=== PATIENT | female | born 1995 | race Caucasian/White ===

== ENCOUNTER → 2019-06-30 | Outpatient (CLI) | payer MEDICAID, BC ==
--- NOTE | 2019-06-30 14:42 | Diagnostic Imaging Report ---
PROCEDURE: MR imaging of the brain without contrast. TECHNIQUE: Multiplanar, multisequence MR imaging of the brain was performed without contrast. INDICATION: Headache. FINDINGS: The ventricles and sulci are within normal limits. There is no hydrocephalus. There is no midline shift. There is no mass, hemorrhage or extra-axial fluid collection. There are no areas of diffusion restriction appreciated to suggest an acute CVA. There is mucosal thickening in the maxillary sinuses bilaterally. Mastoid air cells are clear. The globes and intraorbital structures are unremarkable. The central arterial and dural venous sinus flow voids are preserved. IMPRESSION: No acute intracranial abnormality. Bilateral maxillary sinus disease. Dictated by: Dictated on workstation # [id number]
== END ==
LOC: RAD 13:33
PROVIDERS: ATTEND Nurse Practitioner Family
DX: J32.0 Chronic maxillary sinusitis (principal)
CPT/HCPCS: 70551

== ENCOUNTER → 2019-11-29 | Outpatient (CLI) | payer BC, MEDICAID ==
[~2019-11-29] MED LIST: BUPR-168 PO
--- NOTE | 2019-11-29 11:35 | Diagnostic Imaging Report ---
PROCEDURE: CT abdomen and pelvis without contrast. TECHNIQUE: Multiple contiguous axial images were obtained through the abdomen and pelvis without the use of intravenous contrast. Auto Exposure Controls were utilized during the CT exam to meet ALARA standards for radiation dose reduction. INDICATION: Abdominal pain. Nausea and vomiting. COMPARISON: None. FINDINGS: The heart is unremarkable. The included lung bases are clear. The left kidney has an atrophic appearance with internal calcifications. This measures approximately 4.7 cm craniocaudal. There is compensatory hypertrophy of the right kidney which measures 10.6 cm in length. No evidence of hydronephrosis or obstructing renal calculi. The urinary bladder is unremarkable. The liver, spleen, pancreas, and adrenal glands have an unremarkable noncontrast CT appearance. The gallbladder is surgically absent. There is no pathologically enlarged mesenteric or retroperitoneal adenopathy. The bowel loops are nondilated. The appendix is visualized in the right lower quadrant and has an unremarkable appearance. There is no free fluid or free air. The osseous structures are age-appropriate. Bilateral dominant follicles/cysts are seen in the ovaries. There is no free air, loculated collection, or adenopathy in the pelvis. IMPRESSION: 1. No acute inflammation, bowel obstruction, or free fluid is seen in the abdomen and pelvis. Normal appendix. 2. Atrophic appearance of the left kidney, which may be congenital. There is compensatory hypertrophy of the right kidney. No acute abnormalities are seen in the right kidney. 3. Bilateral dominant follicles/cysts in the ovaries. Dictated by: Dictated on workstation # [id number]
== END ==
LOC: RAD FS 10:33
PROVIDERS: ATTEND Nurse Practitioner
DX: R19.7 Diarrhea, unspecified (principal); R10.84 Generalized abdominal pain; R11.2 Nausea with vomiting, unspecified
CPT/HCPCS: 74176

== ENCOUNTER 2019-12-01 09:07 | Outpatient (CLI) | payer MEDICAID ==
[~2019-12-01] VITALS: Ht 167 cm; Wt 81.0 kg
[2019-12-01] MEDS ORDERED: BUPR-168 PO (10:12)
== END 2019-12-01 10:15 ==
LOC: PREOP 09:07
PROVIDERS: ATTEND Surgery
DX: Z01.818 Encounter for other preprocedural examination (principal)

== ENCOUNTER 2019-12-06 07:48 | Day surgery (SDC) | payer MEDICAID ==
[~2019-12-06] VITALS: Ht 167 cm; Wt 81.0 kg
[2019-12-06] MEDS ORDERED: LACTATED RINGERS 1,000 ML IV STA (07:59)
[2019-12-06] MEDS ORDERED: LACTATED RINGERS 1,000 ML IV ONE (07:59)
[2019-12-06 08:00] VITALS: BP 113/69
[2019-12-06] MEDS ORDERED: HURRICAINE EXT TUBE (BENZOCAINE) XX PRN (08:00)
--- OUTSIDE RECORDS SUMMARY | 2019-12-06 08:12 | XMS REPORT | Clinical Summary ---
Author Author Admin, Carmella Casarez Organization [facility] Address Unknown Phone Unavailable Allergies, Adverse Reactions, Alerts Allergy Name Reaction Description Start Date Severity Status Pr ovider PENICILLIN rash Critical Active Erica Casarez PhD Conditions or Problems Problem Name Problem Code Onset Date Status Entry Date Provider Comment Standard Description Annotate V22.2 Resolved Erica Gutierrez MD PhD state, incidental DEPRESSION 311 Active Erica Gutierrez MD PhD Depressive disorder, not elsewhere classified FH DIABETES V18.0 Active Erica Gutierrez MD PhD Family history of diabetes mellitus SMALL FOR GESTATIONAL AGE 764.00 Resolved Erica Gutierrez MD PhD 'Batqk-kdz-oslid' without me ntion of malnutrition, unspecified [weight] EXAMINATION V24.2 Resolved Erica Gutierrez MD PhD Routine follow-up SUPRAPUBIC PAIN 789.09 Resolved Erica Gutierrez MD P hD Abdominal pain, other specified site; multiple sites CONTRACEPTION MANAGEMENT V25.09 Resolved Erica Gutierrez MD PhD Encounter for other general counseling and advice on contraceptive management OTHER SPECIFED COMPLICATION ANTEPARTUM 646.83 Resolved Erica Gutierrez MD PhD Other specified complication s of , antepartum condition or complication , NORMAL V22.2 Resolved Erica Gutierrez MD PhD state, incidental VAGINAL BLEEDING, FIRST TRIMESTER 641.90 Resolved 20 07/25/31 Erica Gutierrez MD PhD Unspecified antepartum hemor rhage, unspecified as to episode of care or not applicable UTERINE SIZE DATE DISCREPANCY ANTPRTM COND/COMPL 649.63 04/23 Resolved Erica Gutierrez MD PhD Uterine size date di screpancy, antepartum condition or complication UTI 599.0 Resolved Erica Gutierrez MD PhD Urinary tract infection, site not specified VAGINITIS 616.10 Resolved Erica Gutierrez MD PhD Vaginitis and vulvovaginitis, unspecified URTICARIA 708.9 Resolved Erica Gutierrez MD PhD Unspecified urticaria SEXUALLY TRANSMITTED DISEASE, EXPOSURE TO V01.6 Resol francy Erica Gutierrez MD PhD Contact with or exposure to venereal dis eases CONTRACEPTION MANAGEMENT V25.09 Active Erica Gutierrez MD PhD Encounter for other general counseling and advice on contraceptive management CANDIDIASIS, VAGINAL 112.1 Resolved Erica Gutierrez MD PhD Candidiasis of vulva and vagina Pharyngitis, acute 074.0 Resolved Erica Casarez PhD Herpangina Otitis media, left 382.9 Resolved Erica Casarez PhD Unspecified otitis media Abdominal pain 789.00 Active Erica Gutierrez MD PhD Abdominal pain, unspecified site UTI 599.0 Active Erica Gutierrez MD PhD Urinary tract infection, site not specified Helicobacter pylori gastritis 535.40 Active 01/28 Erica Gutierrez MD PhD Other specified gastritis, without menti on of hemorrhage WELL WOMAN EXAMINATION V72.31 Active Marimar valdez MD Routine gynecological examination Dysmenorrhea 625.3 Active Marimar Newsome MD Dysmenorrhea ICD-V22.2 Inactive Erica Gutierrez MD Ph D SMALL FOR GESTATIONAL AGE ICD-764.00 Inactive Erica Gutierrez MD PhD EXAMINATION ICD-V24.2 Inactive Sterling Gutierrez MD PhD SUPRAPUBIC PAIN ICD-789.09 Inactive Erica still MD PhD CONTRACEPTION MANAGEMENT ICD-V25.09 Inactive Erica Gutierrez MD PhD OTHER SPECIFED COMPLICATION ANTEPARTUM ICD-646.83 20 07/24/03 Inactive Erica Gutierrez MD PhD , NORMAL ICD-V22.2 Inactive Erica donnelly MD PhD VAGINAL BLEEDING, FIRST TRIMESTER ICD-641.90 In active Erica Gutierrez MD PhD UTERINE SIZE DATE DISCREPANCY ANTPRTM COND/COMPL ICD-649.63 Inactive Erica Gutierrez MD PhD UTI ICD-599.0 Inactive Erica Gutierrez MD PhD 201 09/27/23 VAGINITIS ICD-616.10 Marques Gutierrez MD P hD URTICARIA ICD-708.9 Marques Gutierrez MD Ph D SEXUALLY TRANSMITTED DISEASE, EXPOSURE TO ICD-V01.6 Marques Gutierrez MD PhD CANDIDIASIS, VAGINAL ICD-112.1 Marques Gutierrez MD PhD Pharyngitis, acute ICD-074.0 Marques del angel MD PhD Otitis media, left ICD-382.9 Marques del angel MD PhD Medication List Medication Instructions Start Date Stop Date Generic Name NDC Status Provider Patient Instruction BACTRIM DS 800-160 MG TABS 1 pill by mouth twice daily, for UTI SULFAMETHOXAZOLE-TRIMETHOPRIM [id number] No Longer Active A uyen Gutierrez MD PhD Active PREVPAC MISC take as directed, twice daily CGURDUILE-SKATGWNYT-VWFHCCROG 85508440186 Active Erica Gutierrez MD PhD Active NEXPLANON 68 MG IMPL every 3 years ETONOGESTREL 90170539 001 Active Marimar Newsome MD Active FLAGYL 500 MG TAB 1 tablet by mouth two times daily 29/01/27 METRONIDAZOLE 64922088790 No Longer Active Erica Gutierrez MD PhD Act sirisha CLARITHROMYCIN 500 MG TABS 1 tablet by mouth twice daily CLARITHROMYCIN 19046774871 No Longer Active Erica Gutierrez MD PhD Ac tive PROTONIX 40 MG SOLR 1 po q a.m. PANTOPRAZOLE SO DIUM 00993749961 No Longer Active Erica Gutierrez MD PhD Active BACTRIM DS 800-160 MG TAB 1 tab by mouth twice daily 2 TRIMETHOPRIM-SULFAMETHOXAZOLE 83685172981 No Longer Active Erica Gutierrez MD P hD Active ZITHROMAX 250 MG TAB 2 po today, then 1 po q days 2-5 AZITHROMYCIN 29425894728 No Longer Active Gabrielle Dill APRN Acti ve NEXPLANON 68 MG IMPL replace every 3 years ETON OGESTREL 15739051767 No Longer Active Gabrielle Dill APRN Active HYDROCODONE-ACETAMINOPHEN 5-325 MG TABS 1 q 4-6 hrs prn HYDROCODONE-ACETAMINOPHEN 91271032343 No Longer Active Gabrielle Dill APRN Active DIFLUCAN 150 MG TAB 1 qODay x 2 doses FLUCONAZO LE 92572196356 No Longer Active Erica Gutierrez MD PhD Active LORATADINE 10 MG TABS 1 tablet by mouth daily in the AM LORATADINE 60622955991 No Longer Active Erica Gutierrez MD PhD Acti ve BENADRYL 25 MG CAP 25-50 mg po q 4-6 hours PRN DIPHENHYDRAMINE HCL 50920520071 No Longer Active Erica Gutierrez MD PhD Active 1 30-0.975-200 MG CAPS 1 qDay 3 MV-MIN-FE FUM-FA-DHA 72400285935 No Longer Active Jair Paez BRICK OFFBEARER Act sirisha ZANTAC 150 MG TAB 1 po BID RANITIDINE HCL 29723 704914 No Longer Active Erica Gutierrez MD PhD Active ZOFRAN ODT 4 MG TBDP 1 po q6hr PRN Nausea ONDAN SETRON 13277466142 No Longer Active Erica Gutierrez MD PhD Active METRONIDAZOLE 250 MG TABS 1 TID METRONIDAZOL E 00232785172 No Longer Active Erica Gutierrez MD PhD Active NITROFURANTOIN MONOHYD MACRO 100 MG CAPS 1 .bid NITROFURANTOIN MONOHYD MACRO 75460672940 No Longer Active Erica Gutierrez MD PhD Active TRI-SPRINTEC 0.18/0.215/0.25 MG-35 MCG TABS 1 po qd as directed NORGESTIM-ETH ESTRAD TRIPHASIC 22328535782 No Longer Active Erica Gutierrez MD PhD Active BACTRIM DS 800-160 MG TAB 1 tab by mouth twice daily 2 TRIMETHOPRIM-SULFAMETHOXAZOLE 00892737473 No Longer Active Erica Gutierrez MD P hD Active PX MULTIVITAMINS 28-0.8 MG TABS Take 1 tablet by mouth daily VIT-FE FUMARATE-FA 69089596058 No Longer Active Ercia Gutierrez MD PhD Active PX MULTIVITAMINS 28-0.8 MG TABS Take 1 tablet by mouth daily PX MULTIVITAMINS 28-0.8 MG TABS VIT-FE FUMARATE-FA Inactive TRI-SPRINTEC 0.18/0.215/0.25 MG-35 MCG TABS 1 po qd as directed TRI-SPRINTEC 0.18/0.215/0.25 MG-35 MCG TABS 489954 NORGESTIM-ETH ESTRAD TRIPHASIC Inactive METRONIDAZOLE 250 MG TABS 1 TID METRONIDAZ OLE 250 MG TABS 112369 METRONIDAZOLE Inactive ZOFRAN ODT 4 MG TBDP 1 po q6hr PRN Nausea ZOFRAN ODT 4 MG TBDP 851771 ONDANSETRON Inactive 1 30-0.975-200 MG CAPS 1 qDay 3 1 30-0.975-200 MG CAPS MV-MIN-FE FUM-FA-DHA Inactive BENADRYL 25 MG CAP 25-50 mg po q 4-6 hours PRN BENADRYL 25 MG CAP 0066412 DIPHENHYDRAMINE HCL Inactive LORATADINE 10 MG TABS 1 tablet by mouth daily in the AM LORATADINE 10 MG TABS 182177 LORATADINE Inactive HYDROCODONE-ACETAMINOPHEN 5-325 MG TABS 1 q 4-6 hrs prn HYDROCODONE-ACETAMINOPHEN 5-325 MG TABS 889385 HYDROCODONE-ACETAMIN OPHEN Inactive NEXPLANON 68 MG IMPL replace every 3 years NEXPLA NON 68 MG IMPL ETONOGESTREL Inactive BACTRIM DS 800-160 MG TAB 1 tab by mouth twice daily 2 BACTRIM DS 800-160 MG TAB TRIMETHOPRIM-SULFAMETHOXAZOLE Inac tive NITROFURANTOIN MONOHYD MACRO 100 MG CAPS 1 .bid NITROFURANTOIN MONOHYD MACRO 100 MG CAPS 385800 NITROFURANTOIN MONO HYD MACRO Inactive ZANTAC 150 MG TAB 1 po BID ZANTAC 150 MG TAB 19 8191 RANITIDINE HCL Inactive DIFLUCAN 150 MG TAB 1 qODay x 2 doses DIFLUCAN 150 MG TAB 830577 FLUCONAZOLE Inactive ZITHROMAX 250 MG TAB 2 po today, then 1 po q days 2-5 ZITHROMAX 250 MG TAB 6843666 AZITHROMYCIN Inactive BACTRIM DS 800-160 MG TAB 1 tab by mouth twice daily 2 BACTRIM DS 800-160 MG TAB TRIMETHOPRIM-SULFAMETHOXAZOLE Inac tive PROTONIX 40 MG SOLR 1 po q a.m. PROTONIX 40 MG SOLR 642961 PANTOPRAZOLE SODIUM Inactive CLARITHROMYCIN 500 MG TABS 1 tablet by mouth twice daily CLARITHROMYCIN 500 MG TABS 402610 CLARITHROMYCIN Inactive FLAGYL 500 MG TAB 1 tablet by mouth two times daily 29/01/27 FLAGYL 500 MG TAB 112145 METRONIDAZOLE Inactive BACTRIM DS 800-160 MG TABS 1 pill by mouth twice daily, for UTI BACTRIM DS 800-160 MG TABS SULFAMETHOXAZOLE-TRIM ETHOPRIM Inactive Immunizations Vaccine Administration Date Value Standard Pritesh cription TB PPD (tuberculin purified protein derivative), intra dermal administration Tubersol TB PPD (tuberculin purified protein derivative), intra dermal administration Tubersol hepatitis B vaccine series yes hepat itis B vaccine, unspecified formulation influenza immunization (Flu Vax) has been administered 3 Fluzone 3+yrs influenza virus vaccine, unspecified formulation dT (Diphtheria and Tetanus) booster Boostrix Tda p Td(adult) unspecified formulation MPSV4 (meningococcal polysaccharide vaccination) Menactra meningococcal polysaccharide vaccine (MPSV4) DPT immunization #5 DTaP oral polio vaccine (OPV) #4 IPV vitaliy ovirus vaccine, unspecified formulation MMR virus immunization #2 MMR DPT immunization #4 DTaP Hemophilus influenza B immunization #4 Historica l Haemophilus influenzae type b vaccine, conjugate unspecified formulation hepatitis B vaccine #3 Historical hepatitis B vaccine, unspecified formulation hepatitis B vaccine #2 Historical hepatitis B vaccine, unspecified formulation DPT immunization #3 DTaP Hemophilus influenza B immunization #3 Historica l Haemophilus influenzae type b vaccine, conjugate unspecified formulation oral polio vaccine (OPV) #3 IPV vitaliy ovirus vaccine, unspecified formulation MMR virus immunization #1 MMR hepatitis B vaccine #1 Historical hepatitis B vaccine, unspecified formulation DPT immunization #2 DTaP Hemophilus influenza B immunization #2 Historica l Haemophilus influenzae type b vaccine, conjugate unspecified formulation oral polio vaccine (OPV) #2 IPV vitaliy ovirus vaccine, unspecified formulation oral polio vaccine (OPV) #1 IPV vitaliy ovirus vaccine, unspecified formulation DPT immunization #1 DTaP Hemophilus influenza B immunization #1 Historica l Haemophilus influenzae type b vaccine, conjugate unspecified formulation Vital Signs Date Name Value Unit Range Description blood pressure, diastolic 79 mm[Hg] BP martin blood pressure, systolic 120 mm[Hg] BP sys height E&M 65 [in_us] Bdy height pulse rate E&M 80 /min Heart rate temperature E&M 98.1 [degF] Body temp erature weight E&M 172 [lb_av] Weight Measure d blood pressure, diastolic 69 mm[Hg] BP martin blood pressure, systolic 121 mm[Hg] BP sys pulse rate E&M 94 /min Heart rate temperature E&M 98.8 [degF] Body temp erature weight E&M 174 [lb_av] Weight Measure d blood pressure, diastolic 83 mm[Hg] BP martin blood pressure, systolic 127 mm[Hg] BP sys height E&M 65 [in_us] Bdy height pulse rate E&M 91 /min Heart rate temperature E&M 98.8 [degF] Body temp erature weight E&M 166.50 [lb_av] Weight Measure d blood pressure, diastolic 76 mm[Hg] BP martin blood pressure, systolic 124 mm[Hg] BP sys height E&M 65 [in_us] Bdy height pulse rate E&M 67 /min Heart rate temperature E&M 97.7 [degF] Body temp erature weight E&M 175 [lb_av] Weight Measure d Diagnostic Results Date Name Value Unit Range Description Lab Report: Chlamydia/GC APTIMA/[id number] - Lab chlamydia DNA probe NOT DETECTED NOT DETECTED Lab Report: Chlamydia/GC APTIMA/[id number] - Microbiology Neisseria gonorrhoeae DNA probe NOT DETECTED NO T DETECTED Lab Report: H. Pylori, Comp. Metabolic P jared, CBC W/DIFF - Chemistry sodium, serum 139 mmol/L 387-765 1941/06/11 potassium, serum 4.2 mmol/L 3.5-5.2 chloride, serum 103 mmol/L 98-107 carbon dioxide, venous blood 25.8 mmol/L 21.0-32 .0 blood glucose 103 mg/dL 65-110 urea nitrogen, blood 16 mg/dL 7-18 creatinine, serum 0.90 mg/dL 0.60-1.30 alanine aminotransferase (SGPT), serum 52 U/L 12-78 aspartate aminotransferase (SGOT), serum 31 U/L 15-37 alkaline phosphatase, serum 132 U/L 50-136 calcium, serum 9.3 mg/dL 8.5-10.1 bilirubin, serum, total 0.30 mg/dL 0.00-1.00 Lab Report: H. Pylori, Comp. Metabolic P jared, CBC W/DIFF - Hematology leukocyte count, blood 9.0 10^3/MM^3 10*3/mm3 4.6-10.2 neutrophils as percent of blood leukocytes 49.7 % 42.2-75.2 monocytes as percent of blood leukocytes 9.5 % 1.7-9.3 lymphocytes as percent of blood leukocytes 36.3 % 20.5-51.1 erythrocyte (RBC) count 4.71 10^6/MM^3 10*6/mm3 4.04-5.4 8 hemoglobin, blood 14.9 g/dL 12.0-16.0 hematocrit, blood 43.3 % 36.0-46.0 mean corpuscular volume, RBC 92 fL 80-97 mean corpuscular hemoglobin, RBC 31.5 pg 27. 0-31.2 mean corpuscular hemoglobin concentration, RBC 34.3 G/DL % 31.8-35.4 red blood cell distribution width 13.7 % 11 .6-14.8 platelet count 314 10^3/MM^3 10*3/mm3 142-424 Lab Report: UADIP W/MICRO, AUTO - Chemis try RBC, urine, dipstick Trace Negative protein, total urine random Trace mg/dL Negative protein, total urine random Negative mg/dL Negative RBC, urine, dipstick Negative Negative Lab Report: UADIP W/MICRO, AUTO - Urinal ysis urobilinogen, urine, semiquantitative (dipstick) 0.2 Normal leukocyte esterase, urine, by dipstick Trace Negative nitrite, urine, semiquantitative Negative Neg ative glucose, urine, semiquantitative Negative Neg ative ketones, urine, by test strip Negative Negati ve bilirubin, urine Negative Negative glucose, urine, semiquantitative Negative Neg ative ketones, urine, by test strip Negative Negati ve bilirubin, urine Negative Negative urine color Yellow Colorless;Lightyellow;St raw;Yellow appearance, urine Cloudy Clear specific gravity, urine 1.025 1.000-1.030 pH, urine, semiquantitative 6.0 5.0-8.5 urobilinogen, urine, semiquantitative (dipstick) 0.2 Normal leukocyte esterase, urine, by dipstick 2+ Negative nitrite, urine, semiquantitative Negative Neg ative urine color Yellow Colorless;Lightyellow;St raw;Yellow appearance, urine Clear Clear specific gravity, urine 1.020 1.000-1.030 pH, urine, semiquantitative 7.0 5.0-8.5 Encounters Code Encounter Date Provider Facility CPT-13127 Level 3 Est. Patient 17:34:39 CDT Erica del angel MD PhD [facility] CPT-66353 Level 3 Est. Patient 15:37:34 [facility] Gabrielle Allenart [facility] CPT-42979 Level 3 Est. Patient 11:00:48 CDT Erica del angel MD PhD [facility] CPT-02750 Level 3 Est. Patient 14:15:09 [facility] Jair boudreaux [facility] CPT-69139 Level 4 Est. Patient 14:28:18 CDT Erica del angel MD PhD [facility] Procedures Code Procedure Name Date Entry Date Standard Desc ription CPT-OV Office Visit 15:00:46 CDT CPT-OV Office Visit 16:12:37 [facility] CPT-80874 Nexplanon Placement 06:24:16 CDT CPT-J7307 Nexplanon (Implant) 06:24:16 CDT CPT-OV Office Visit 06:24:16 CDT CPT-94529 UHCG (floor use only) 12:59:32 CDT CPT-OV Office Visit 10:46:11 CDT CPT-34343 Visit 14:16:15 [facility] CPT-02119 Visit 13:53:01 [facility] CPT-13542 Visit 18:31:27 [facility] CPT-15265 Sono OB comp > 14 weeks 17:35:57 [facility] 06/24 CPT-79850 Tubersol 13:49:34 [facility] CPT-32941 Administration single or combination vac cine inc oral 13:49:34 [employer] CPT-60836 TB Tubersol 13:49:34 [employer] CPT-18186 Visit 11:06:01 [facility] CPT-02756 Visit 11:47:38 CDT CPT-12650 TB Tubersol 10:44:14 CDT CPT-49290 Visit 15:16:49 CDT CPT-76255 Visit 16:33:29 CDT CPT-60740 Sono OB comp > 14 weeks 11:45:03 CDT 04/23 CPT-40445 Visit 10:03:29 CDT CPT-82817 Visit 10:35:45 CDT CPT-12206 Visit 11:10:45 CDT CPT-65034 Spec Collection and Handling Fee 14:28:18 C DT CPT-41156 Sono OB transvag <14 weeks 14:51:23 CDT 201 09/23/14 CPT-62383 Spec Collection and Handling Fee 11:21:[address] CPT-75916 Visit 11:49:17 [employer] [employer] CPT-36462 Visit 10:55:44 [employer] [employer] CPT-83047 Visit 10:28:35 [employer] [employer] CPT-66708 Visit 09:50:13 [employer] [employer] CPT-25108 Visit 22:07:15 CDT CPT-06428 Visit 09:05:22 CDT CPT-08668 Sono OB comp > 14 weeks 17:37:04 CDT 05/22 CPT-47829 Visit 10:00:01 CDT
--- OUTSIDE RECORDS SUMMARY | 2019-12-06 08:13 | XMS REPORT | Clinical Summary ---
Author Author Admin, Carmella Casarez Organization [facility] Address Unknown Phone Allergies, Adverse Reactions, Alerts Allergy Name Reaction [...] [age] Resolved Erica Gutierrez MD PhD '[id number]-ekycs' without me ntion of malnutrition, unspecified [weight] [...] PhD Urinary tract infection, site not specified ICD-V22.2 Inactive Erica Gutierrez MD Ph D SMALL FOR GESTATIONAL AGE ICD-764.00 Inactive Erica Gutierrez MD PhD EXAMINATION ICD-V24.2 Inactive Sterling Gutierrez MD PhD SUPRAPUBIC PAIN ICD-789.09 Inactive Erica still MD PhD CONTRACEPTION MANAGEMENT ICD-V25.09 Inactive rEica Gutierrez MD PhD OTHER SPECIFED COMPLICATION ANTEPARTUM ICD-646.83 20 07/24/03 Inactive Erica Gutierrez MD PhD , NORMAL ICD-V22.2 Inactive Erica donnelly MD PhD VAGINAL BLEEDING, FIRST TRIMESTER ICD-641.90 In active Erica Gutierrez MD PhD UTERINE SIZE DATE DISCREPANCY ANTPRTM COND/COMPL ICD-649.63 Inactive Erica Gutierrez MD PhD UTI ICD-599.0 Inactive Erica Gutierrez MD PhD 201 09/27/23 VAGINITIS ICD-616.10 Inactive Erica Gutierrez MD P hD URTICARIA ICD-708.9 Inactive Erica Gutierrez MD Ph D SEXUALLY TRANSMITTED DISEASE, EXPOSURE TO ICD-V01.6 Inactive Erica Gutierrez MD PhD CANDIDIASIS, VAGINAL ICD-112.1 Inactive Erica Gutierrez MD PhD Pharyngitis, acute ICD-074.0 Inactive Erica del angel MD PhD Otitis media, left ICD-382.9 Inactive Erica del angel MD PhD Medication List Medication Instructions Start Date Stop Date Generic Name NDC Status Provider Patient Instruction BACTRIM DS 800-160 MG TAB 1 tab by mouth twice daily 2 TRIMETHOPRIM-SULFAMETHOXAZOLE 30787825188 Active Erica Gutierrez MD PhD Active ZITHROMAX 250 MG TAB 2 po today, then 1 po q days 2-5 AZITHROMYCIN 96474195152 No Longer Active Gabrielle Dill APRN Acti ve NEXPLANON 68 MG IMPL replace every 3 years ETON OGESTREL 95308254513 No Longer Active Gabrielle Dill AQUACULTURE AND FISHERIES PROFESSOR Active HYDROCODONE-ACETAMINOPHEN 5-325 MG TABS 1 q 4-6 hrs prn HYDROCODONE-ACETAMINOPHEN 67081482501 No Longer Active Gabrielle Dill AQUACULTURE AND FISHERIES PROFESSOR Active DIFLUCAN 150 MG TAB 1 qODay x 2 doses FLUCONAZO LE 53723401681 No Longer Active Erica Gutierrez MD PhD Active LORATADINE 10 MG TABS 1 tablet by mouth daily in the AM LORATADINE 15266862946 No Longer Active Erica Gutierrez MD PhD Acti ve BENADRYL 25 MG CAP 25-50 mg po q 4-6 hours PRN DIPHENHYDRAMINE HCL 14492050099 No Longer Active Erica Gutierrez MD PhD Active 1 30-0.975-200 MG CAPS 1 qDay 3 MV-MIN-FE FUM-FA-DHA 92295106907 No Longer Active Jair Paez AQUACULTURE AND FISHERIES PROFESSOR Act sirisha ZANTAC 150 MG TAB 1 po BID RANITIDINE HCL 07484 274994 No Longer Active Erica Gutierrez MD PhD Active ZOFRAN ODT 4 MG TBDP 1 po q6hr PRN Nausea ONDAN SETRON 69450270229 No Longer Active Erica Gutierrez MD PhD Active METRONIDAZOLE 250 MG TABS 1 TID METRONIDAZOL E 72734710664 No Longer Active Erica Gutierrez MD PhD Active NITROFURANTOIN MONOHYD MACRO 100 MG CAPS 1 .bid NITROFURANTOIN MONOHYD MACRO 25854726789 No Longer Active Erica Gutierrez MD PhD Active TRI-SPRINTEC 0.18/0.215/0.25 MG-35 MCG TABS 1 po qd as directed NORGESTIM-ETH ESTRAD TRIPHASIC 86693368367 No Longer Active Erica Gutierrez MD PhD Active BACTRIM DS 800-160 MG TAB 1 tab by mouth twice daily 2 TRIMETHOPRIM-SULFAMETHOXAZOLE 70936385294 No Longer Active Erica Gutierrez MD P hD Active PX MULTIVITAMINS 28-0.8 MG TABS Take 1 tablet by mouth daily VIT-FE FUMARATE-FA 48184479508 No Longer Active Erica Gutierrez MD PhD Active PX MULTIVITAMINS 28-0.8 MG TABS Take 1 tablet by mouth daily PX MULTIVITAMINS 28-0.8 MG TABS VIT-FE FUMARATE-FA Inactive TRI-SPRINTEC 0.18/0.215/0.25 MG-35 MCG TABS 1 po qd as directed TRI-SPRINTEC 0.18/0.215/0.25 MG-35 MCG TABS 664650 NORGESTIM-ETH ESTRAD TRIPHASIC Inactive METRONIDAZOLE 250 MG TABS 1 TID METRONIDAZ OLE 250 MG TABS 545614 METRONIDAZOLE Inactive ZOFRAN ODT 4 MG TBDP 1 po q6hr PRN Nausea ZOFRAN ODT 4 MG TBDP 166070 ONDANSETRON Inactive 1 30-0.975-200 MG CAPS 1 qDay 3 1 30-0.975-200 MG CAPS MV-MIN-FE FUM-FA-DHA Inactive BENADRYL 25 MG CAP 25-50 mg po q 4-6 hours PRN BENADRYL 25 MG CAP 0863922 DIPHENHYDRAMINE HCL Inactive LORATADINE 10 MG TABS 1 tablet by mouth daily in the AM LORATADINE 10 MG TABS 652088 LORATADINE Inactive HYDROCODONE-ACETAMINOPHEN 5-325 MG TABS 1 q 4-6 hrs prn HYDROCODONE-ACETAMINOPHEN 5-325 MG TABS 563739 HYDROCODONE-ACETAMIN OPHEN Inactive NEXPLANON 68 MG IMPL replace every 3 years NEXPLA NON 68 MG IMPL ETONOGESTREL Inactive BACTRIM DS 800-160 MG TAB 1 tab by mouth twice daily 2 BACTRIM DS 800-160 MG TAB TRIMETHOPRIM-SULFAMETHOXAZOLE Inac tive NITROFURANTOIN MONOHYD MACRO 100 MG CAPS 1 .bid NITROFURANTOIN MONOHYD MACRO 100 MG CAPS 473475 NITROFURANTOIN MONO HYD MACRO Inactive ZANTAC 150 MG TAB 1 po BID ZANTAC 150 MG TAB 19 8191 RANITIDINE HCL Inactive DIFLUCAN 150 MG TAB 1 qODay x 2 doses DIFLUCAN 150 MG TAB 401305 FLUCONAZOLE Inactive ZITHROMAX 250 MG TAB 2 po today, then 1 po q days 2-5 ZITHROMAX 250 MG TAB 8835607 AZITHROMYCIN Inactive Immunizations Vaccine Administration Date Value Standard Pritesh cription TB-PPD (tuberculin purified protein derivative), intra dermal administration Tubersol TB-PPD (tuberculin purified protein derivative), intra dermal administration Tubersol hepatitis B vaccine series yes hepat itis B vaccine, unspecified formulation influenza immunization (Flu Vax) has been administered 3 Fluzone 3+yrs influenza virus vaccine, unspecified formulation dT (Diphtheria and Tetanus) booster given Boostr ix Tdap Td(adult) unspecified formulation MPSV4 (meningococcal polysaccharide vaccination) Menactra meningococcal polysaccharide vaccine (MPSV4) DPT immunization #5 DTaP oral polio vaccine (OPV) #4 IPV vitaliy ovirus vaccine, unspecified formulation MMR (measles, mumps, rubella) virus immunization #2 MMR DPT immunization #4 DTaP Hemophilus influenza B immunization #4 Historica l Haemophilus influenzae type b vaccine, conjugate unspecified formulation hepatitis B vaccine #3 Historical hepatitis B vaccine, unspecified formulation hepatitis B vaccine #2 given Historical hep atitis B vaccine, unspecified formulation DPT immunization #3 DTaP Hemophilus influenza B immunization #3 Historica l Haemophilus influenzae type b vaccine, conjugate unspecified formulation oral polio vaccine (OPV) #3 IPV vitaliy ovirus vaccine, unspecified formulation MMR (measles, mumps, rubella) virus immunization #1 MMR hepatitis B vaccine #1 given Historical hep atitis B vaccine, unspecified formulation DPT immunization #2 [...] Value Unit Range Description blood pressure, diastolic - 8462-4 83 mm[Hg] BP martin blood pressure, systolic - 8480-6 127 mm[Hg] BP sys height E&M - 8302-2 65 [in_us] Bdy h eight pulse rate E&M - 8867-4 91 /min H eart rate temperature E&M 98.8 [degF] Body temp erature weight E&M - 3141-9 166.50 [lb_av] Weigh t Measured blood pressure, diastolic - 8462-4 76 mm[Hg] BP martin blood pressure, systolic - 8480-6 124 mm[Hg] BP sys height E&M - 8302-2 65 [in_us] Bdy h eight pulse rate E&M - 8867-4 67 /min H eart rate temperature E&M 97.7 [degF] Body temp erature weight E&M - 3141-9 175 [lb_av] Weigh t Measured blood pressure, diastolic - 8462-4 67 mm[Hg] BP martin blood pressure, systolic - 8480-6 105 mm[Hg] BP sys height E&M - 8302-2 65 [in_us] Bdy h eight pulse rate E&M - 8867-4 78 /min H eart rate temperature E&M 97.4 [degF] Body temp erature weight E&M - 3141-9 160.8 [lb_av] Weigh t Measured blood pressure, diastolic - 8462-4 73 mm[Hg] BP martin blood pressure, systolic - 8480-6 112 mm[Hg] BP sys height E&M - 8302-2 65 [in_us] Bdy h eight pulse rate E&M - 8867-4 70 /min H eart rate temperature E&M 97.5 [degF] Body temp erature weight E&M - 3141-9 159.6 [lb_av] Weigh t Measured blood pressure, diastolic - 8462-4 76 mm[Hg] BP martin blood pressure, systolic - 8480-6 116 mm[Hg] BP sys height E&M - 8302-2 65 [in_us] Bdy h eight pulse rate E&M - 8867-4 76 /min H eart rate temperature E&M 98.0 [degF] Body temp erature weight E&M - 3141-9 162 [lb_av] Weigh t Measured Diagnostic Results Date Name Value Unit Range Description Lab Report: HIV-1/HIV-2 AB SCREEN W REFL /, RPR (DX) W/REFL TITER & ... - Chemistry hepatitis B surface antigen NON-REACTIVE NON-RE ACTIVE Lab Report: HIV-1/HIV-2 AB SCREEN W REFL /, RPR (DX) W/REFL TITER & ... - Lab chlamydia DNA probe NOT DETECTED NOT DETECTED Lab Report: HIV-1/HIV-2 AB SCREEN W REFL /, RPR (DX) W/REFL TITER & ... - Microbiology Neisseria gonorrhoeae DNA probe NOT DETECTED NO T DETECTED Lab Report: HIV-1/HIV-2 AB SCREEN W REFL /, RPR (DX) W/REFL TITER & ... - Serology rapid plasma reagin antibody titer NON-REACTIVE NON-REACTIVE Lab Report: UADIP W/MICRO, AUTO - Chemis try protein, total urine random Trace mg/dL Negative RBC, urine, dipstick Trace Negative Lab Report: UADIP W/MICRO, AUTO - [...] 1.025 1.000-1.030 pH, urine, semiquantitative 6.0 5.0-8.5 Lab Report: [facility] - Chemistry human chorionic gonadotropin , urine, qualitative (urine test) Negative Negative Office Visit: discuss nexplanon - Chemis try human chorionic gonadotropin , urine, qualitative (urine test) Negative Office Visit: nexplanon - Chemistry human chorionic gonadotropin , urine, qualitative (urine test) Negative Encounters Code Encounter Date Provider Facility CPT-44682 Level 3 Est. Patient 17:34:39 CDT Erica del angel MD PhD [facility] CPT-93819 Level 3 Est. Patient 15:37:34 SUSAN Montenegro APRN [facility] CPT-04102 Level 3 Est. Patient 11:00:48 CDT Erica del angel MD PhD [facility] CPT-66714 Level 3 Est. Patient 14:15:09 FIRE RANGE TECHNICIAN Jair boudreaux AQUACULTURE AND FISHERIES PROFESSOR [facility] CPT-53259 Level 4 Est. Patient 14:28:18 CDT Erica del angel MD PhD [facility] Procedures Code Procedure Name Date Entry Date Standard Desc ription CPT-OV Office Visit 16:12:37 FIRE RANGE TECHNICIAN CPT-01079 Nexplanon Placement 06:24:16 CDT CPT-J7307 Nexplanon (Implant) 06:24:16 CDT CPT-OV Office Visit 06:24:16 CDT CPT-30107 UHCG (floor use only) 12:59:32 CDT CPT-OV Office Visit 10:46:11 CDT CPT-41868 Visit 14:16:15 FIRE RANGE TECHNICIAN CPT-47136 Visit 13:53:01 FIRE RANGE TECHNICIAN CPT-61417 Visit 18:31:27 FIRE RANGE TECHNICIAN CPT-45055 Sono OB comp > 14 weeks 17:35:57 FIRE RANGE TECHNICIAN 06/24 CPT-53496 Tubersol 13:49:34 FIRE RANGE TECHNICIAN CPT-25610 Administration single or combination vac cine inc oral 13:49:34 FIRE RANGE TECHNICIAN CPT-93363 TB Tubersol 13:49:34 FIRE RANGE TECHNICIAN CPT-09181 Visit 11:06:01 FIRE RANGE TECHNICIAN CPT-11391 Visit 11:47:38 CDT CPT-93049 TB Tubersol 10:44:14 CDT CPT-56771 Visit 15:16:49 CDT CPT-36047 Visit 16:33:29 CDT CPT-58369 Sono OB comp > 14 weeks 11:45:03 CDT 04/23 CPT-31865 Visit 10:03:29 CDT CPT-05162 Visit 10:35:45 CDT CPT-99998 Visit 11:10:45 CDT CPT-62381 Spec Collection and Handling Fee 14:28:18 C DT CPT-69747 Sono OB transvag <14 weeks 14:51:23 CDT 201 09/23/14 CPT-06937 Spec Collection and Handling Fee 11:21:[address] CPT-66041 Visit 11:49:17 FIRE RANGE TECHNICIAN CPT-96507 Visit 10:55:44 FIRE RANGE TECHNICIAN CPT-45277 Visit 10:28:35 FIRE RANGE TECHNICIAN CPT-62137 Visit 09:50:13 FIRE RANGE TECHNICIAN CPT-57433 Visit 22:07:15 CDT CPT-38880 Visit 09:05:22 CDT CPT-24785 Sono OB comp > 14 weeks 17:37:04 CDT 05/22 CPT-65504 Visit 10:00:01 CDT
--- OUTSIDE RECORDS SUMMARY | 2019-12-06 08:13 | XMS REPORT | Clinical Summary ---
Author Author Admin, Carmella Casarez Organization [facility] Address Unknown Phone Unavailable Allergies, Adverse [...] AGE 89.00 Resolved Erica Gutierrez MD PhD '[id number]-roagg' without me ntion of malnutrition, unspecified [weight] [...] by mouth twice daily, for UTI SULFAMETHOXAZOLE-TRIMETHOPRIM 42425921326 Active Erica still MD PhD Active PREVPAC MISC take as directed, twice daily [id number] 70301642616 Active Erica Gutierrez MD PhD Active NEXPLANON 68 MG IMPL every 3 years ETONOGESTREL 97317418 001 Active Marimar Newsome MD Active FLAGYL 500 MG TAB 1 tablet by mouth two times daily 20 29/01/27 METRONIDAZOLE 80072622458 No Longer Active Erica Gutierrez MD PhD Act sirisha CLARITHROMYCIN 500 MG TABS 1 tablet by mouth twice daily CLARITHROMYCIN 53744695560 No Longer Active Erica Gutierrez MD PhD Ac tive PROTONIX 40 MG SOLR 1 po q a.m. PANTOPRAZOLE SO DIUM 15678875752 No Longer Active Erica Gutierrez MD PhD Active BACTRIM DS 800-160 MG TAB 1 tab by mouth twice daily 2 TRIMETHOPRIM-SULFAMETHOXAZOLE 58612197765 No Longer Active Erica Gutierrez MD P hD Active ZITHROMAX 250 MG TAB 2 po today, then 1 po q days 2-5 AZITHROMYCIN 04787310607 No Longer Active Gabrielle Dill APRN Acti ve NEXPLANON 68 MG IMPL replace every 3 years ETON OGESTREL 52578107645 No Longer Active Gabrielle Dill APRN Active HYDROCODONE-ACETAMINOPHEN 5-325 MG TABS 1 q 4-6 hrs prn HYDROCODONE-ACETAMINOPHEN 15477434318 No Longer Active Gabrielle Dill APRN Active DIFLUCAN 150 MG TAB 1 qODay x 2 doses FLUCONAZO LE 87650137542 No Longer Active Erica Gutierrez MD PhD Active LORATADINE 10 MG TABS 1 tablet by mouth daily in the AM LORATADINE 72185640444 No Longer Active Erica Gutierrez MD PhD Acti ve BENADRYL 25 MG CAP 25-50 mg po q 4-6 hours PRN DIPHENHYDRAMINE HCL 95336416805 No Longer Active Erica Gutierrez MD PhD Active 1 30-0.975-200 MG CAPS 1 qDay 3 MV-MIN-FE FUM-FA-DHA 22397879961 No Longer Active Jair Paez POULTRY PICKING MACHINE TENDER Act sirisha ZANTAC 150 MG TAB 1 po BID RANITIDINE HCL 30826 796157 No Longer Active Erica Gutierrez MD PhD Active ZOFRAN ODT 4 MG TBDP 1 po q6hr PRN Nausea ONDAN SETRON 93791116431 No Longer Active Erica Gutierrez MD PhD Active METRONIDAZOLE 250 MG TABS 1 TID METRONIDAZOL E 41481296239 No Longer Active Erica Gutierrez MD PhD Active NITROFURANTOIN MONOHYD MACRO 100 MG CAPS 1 .bid NITROFURANTOIN MONOHYD MACRO 17042890390 No Longer Active Erica Gutierrez MD PhD Active TRI-SPRINTEC 0.18/0.215/0.25 MG-35 MCG TABS 1 po qd as directed NORGESTIM-ETH ESTRAD TRIPHASIC 38152891914 No Longer Active Erica Gutierrez MD PhD Active BACTRIM DS 800-160 MG TAB 1 tab by mouth twice daily 2 TRIMETHOPRIM-SULFAMETHOXAZOLE 31219774478 No Longer Active Erica Gutierrez MD P hD Active PX MULTIVITAMINS 28-0.8 MG TABS Take 1 tablet by mouth daily VIT-FE FUMARATE-FA 90434328673 No Longer Active Erica Gutierrez MD PhD Active PX MULTIVITAMINS 28-0.8 MG TABS Take 1 tablet by mouth daily PX MULTIVITAMINS 28-0.8 MG TABS VIT-FE FUMARATE-FA Inactive TRI-SPRINTEC 0.18/0.215/0.25 MG-35 MCG TABS 1 po qd as directed TRI-SPRINTEC 0.18/0.215/0.25 MG-35 MCG TABS 047272 NORGESTIM-ETH ESTRAD TRIPHASIC Inactive METRONIDAZOLE 250 MG TABS 1 TID METRONIDAZ OLE 250 MG TABS 012310 METRONIDAZOLE Inactive ZOFRAN ODT 4 MG TBDP 1 po q6hr PRN Nausea ZOFRAN ODT 4 MG TBDP 178662 ONDANSETRON Inactive 1 30-0.975-200 MG CAPS 1 qDay 3 1 30-0.975-200 MG CAPS MV-MIN-FE FUM-FA-DHA Inactive BENADRYL 25 MG CAP 25-50 mg po q 4-6 hours PRN BENADRYL 25 MG CAP 9104635 DIPHENHYDRAMINE HCL Inactive LORATADINE 10 MG TABS 1 tablet by mouth daily in the AM LORATADINE 10 MG TABS 813971 LORATADINE Inactive HYDROCODONE-ACETAMINOPHEN 5-325 MG TABS 1 q 4-6 hrs prn HYDROCODONE-ACETAMINOPHEN 5-325 MG TABS 119770 HYDROCODONE-ACETAMIN OPHEN Inactive NEXPLANON 68 MG IMPL replace every 3 years NEXPLA NON 68 MG IMPL ETONOGESTREL Inactive BACTRIM DS 800-160 MG TAB 1 tab by mouth twice daily 2 BACTRIM DS 800-160 MG TAB TRIMETHOPRIM-SULFAMETHOXAZOLE Inac tive NITROFURANTOIN MONOHYD MACRO 100 MG CAPS 1 .bid NITROFURANTOIN MONOHYD MACRO 100 MG CAPS 086750 NITROFURANTOIN MONO HYD MACRO Inactive ZANTAC 150 MG TAB 1 po BID ZANTAC 150 MG TAB 19 8191 RANITIDINE HCL Inactive DIFLUCAN 150 MG TAB 1 qODay x 2 doses DIFLUCAN 150 MG TAB 239038 FLUCONAZOLE Inactive ZITHROMAX 250 MG TAB 2 po today, then 1 po q days 2-5 ZITHROMAX 250 MG TAB 1563122 AZITHROMYCIN Inactive BACTRIM DS 800-160 MG TAB 1 tab by mouth twice daily 2 BACTRIM DS 800-160 MG TAB TRIMETHOPRIM-SULFAMETHOXAZOLE Inac tive PROTONIX 40 MG SOLR 1 po q a.m. PROTONIX 40 MG SOLR 662540 PANTOPRAZOLE SODIUM Inactive CLARITHROMYCIN 500 MG TABS 1 tablet by mouth twice daily CLARITHROMYCIN 500 MG TABS 732824 CLARITHROMYCIN Inactive FLAGYL 500 MG TAB 1 tablet by mouth two times daily 29/01/27 FLAGYL 500 MG TAB 523797 METRONIDAZOLE Inactive Immunizations Vaccine Administration Date Value Standard [...] Value Unit Range Description Lab Report: Chlamydia/GC APTIMA/87646 - Lab chlamydia DNA probe NOT DETECTED NOT DETECTED Lab Report: Chlamydia/GC APTIMA/27232 - Microbiology Neisseria gonorrhoeae DNA probe NOT DETECTED NO T DETECTED Lab Report: H. Pylori, Comp. Metabolic P jared, CBC W/DIFF - Chemistry sodium, serum 139 mmol/L 799-039 6732/06/11 potassium, serum 4.2 mmol/L 3.5-5.2 chloride, serum [...] 5.0-8.5 Encounters Code Encounter Date Provider Facility CPT-65339 Level 3 Est. Patient 17:34:39 CDT Erica del angel MD PhD [facility] CPT-52994 Level 3 Est. Patient 15:37:34 COMMUNITY PHARMACIST Gabrielle Montenegro [facility] CPT-39616 Level 3 Est. Patient 11:00:48 CDT Erica del angel MD PhD [facility] CPT-16967 Level 3 Est. Patient 14:15:09 COMMUNITY PHARMACIST Jair boudreaux [facility] CPT-36890 Level 4 Est. Patient 14:28:18 CDT Erica del angel MD PhD [facility] Procedures Code Procedure Name Date Entry Date Standard Desc ription CPT-OV Office Visit 15:00:46 CDT CPT-OV Office Visit 16:12:37 COMMUNITY PHARMACIST CPT-38622 Nexplanon Placement 06:24:16 CDT CPT-J7307 Nexplanon (Implant) 06:24:16 CDT CPT-OV Office Visit 06:24:16 CDT CPT-58761 UHCG (floor use only) 12:59:32 CDT CPT-OV Office Visit 10:46:11 CDT CPT-48286 Visit 14:16:15 COMMUNITY PHARMACIST CPT-03978 Visit 13:53:01 COMMUNITY PHARMACIST CPT-35614 Visit 18:31:27 COMMUNITY PHARMACIST CPT-58038 Sono OB comp > 14 weeks 17:35:57 COMMUNITY PHARMACIST 06/24 CPT-22027 Tubersol 13:49:34 COMMUNITY PHARMACIST CPT-31653 Administration single or combination vac cine inc oral 13:49:34 COMMUNITY PHARMACIST CPT-86647 TB Tubersol 13:49:34 COMMUNITY PHARMACIST CPT-93489 Visit 11:06:01 COMMUNITY PHARMACIST CPT-92236 Visit 11:47:38 CDT CPT-81081 TB Tubersol 10:44:14 CDT CPT-91597 Visit 15:16:49 CDT CPT-64529 Visit 16:33:29 CDT CPT-75936 Sono OB comp > 14 weeks 11:45:03 CDT 04/23 CPT-62942 Visit 10:03:29 CDT CPT-62322 Visit 10:35:45 CDT CPT-94079 Visit 11:10:45 CDT CPT-48622 Spec Collection and Handling Fee 14:28:18 C DT CPT-25096 Sono OB transvag <14 weeks 14:51:23 CDT 201 09/23/14 CPT-06472 Spec Collection and Handling Fee 11:21:[address] CPT-78047 Visit 11:49:17 COMMUNITY PHARMACIST CPT-44174 Visit 10:55:44 COMMUNITY PHARMACIST CPT-37937 Visit 10:28:35 COMMUNITY PHARMACIST CPT-19878 Visit 09:50:13 COMMUNITY PHARMACIST CPT-65597 Visit 22:07:15 CDT CPT-01859 Visit 09:05:22 CDT CPT-86680 Sono OB comp > 14 weeks 17:37:04 CDT 05/22 CPT-58969 Visit 10:00:01 CDT
--- OUTSIDE RECORDS SUMMARY | 2019-12-06 08:13 | XMS REPORT | Clinical Summary ---
Author Author Admin, Carmella Casarez Organization [facility] Address Unknown Phone Unavailable Allergies, Adverse [...] [age] Resolved Erica Gutierrez MD PhD '[id number]' without me ntion of malnutrition, unspecified [weight] [...] Generic Name NDC Status Provider Patient Instruction NEXPLANON 68 MG IMPL every 3 years ETONOGESTREL 02138406 001 Active Marimar Newsome MD Active FLAGYL 500 MG TAB 1 tablet by mouth two times daily 20 29/01/27 METRONIDAZOLE 01908907254 No Longer Active Erica Gutierrez MD PhD Act sirisha CLARITHROMYCIN 500 MG TABS 1 tablet by mouth twice daily CLARITHROMYCIN 72135110314 No Longer Active Erica Gutierrez MD PhD Ac tive PROTONIX 40 MG SOLR 1 po q a.m. PANTOPRAZOLE SO DIUM 41959870464 No Longer Active Erica Gutierrez MD PhD Active BACTRIM DS 800-160 MG TAB 1 tab by mouth twice daily 2 TRIMETHOPRIM-SULFAMETHOXAZOLE 05623839280 No Longer Active Erica Gutierrez MD P hD Active ZITHROMAX 250 MG TAB 2 po today, then 1 po q days 2-5 AZITHROMYCIN 74861939615 No Longer Active Gabrielle Dill APRN Acti ve NEXPLANON 68 MG IMPL replace every 3 years ETON OGESTREL 03762550714 No Longer Active Gabrielle Dill APRN Active HYDROCODONE-ACETAMINOPHEN 5-325 MG TABS 1 q 4-6 hrs prn HYDROCODONE-ACETAMINOPHEN 37154175592 No Longer Active Gabrielle Dill APRN Active DIFLUCAN 150 MG TAB 1 qODay x 2 doses FLUCONAZO LE 83294357023 No Longer Active Erica Gutierrez MD PhD Active LORATADINE 10 MG TABS 1 tablet by mouth daily in the AM LORATADINE 44887265365 No Longer Active Erica Gutierrez MD PhD Acti ve BENADRYL 25 MG CAP 25-50 mg po q 4-6 hours PRN DIPHENHYDRAMINE HCL 55524756527 No Longer Active Erica Gutierrez MD PhD Active 1 30-0.975-200 MG CAPS 1 qDay 3 MV-MIN-FE FUM-FA-DHA 13511937403 No Longer Active Jillina Frazell PROCESS DEVELOPER Act sirisha ZANTAC 150 MG TAB 1 po BID RANITIDINE HCL 63968 476705 No Longer Active Erica Gutierrez MD PhD Active ZOFRAN ODT 4 MG TBDP 1 po q6hr PRN Nausea ONDAN SETRON 09697922126 No Longer Active Erica Gutierrez MD PhD Active METRONIDAZOLE 250 MG TABS 1 TID METRONIDAZOL E 65763525706 No Longer Active Erica Gutierrez MD PhD Active NITROFURANTOIN MONOHYD MACRO 100 MG CAPS 1 .bid NITROFURANTOIN MONOHYD MACRO 28740898255 No Longer Active Erica Gutierrez MD PhD Active TRI-SPRINTEC 0.18/0.215/0.25 MG-35 MCG TABS 1 po qd as directed NORGESTIM-ETH ESTRAD TRIPHASIC 38406537457 No Longer Active Erica Gutierrez MD PhD Active BACTRIM DS 800-160 MG TAB 1 tab by mouth twice daily 2 TRIMETHOPRIM-SULFAMETHOXAZOLE 41151117862 No Longer Active Erica Gutierrez MD P Active PX MULTIVITAMINS 28-0.8 MG TABS Take 1 tablet by mouth daily VIT-FE FUMARATE-FA 12622549024 No Longer Active Erica Gutierrez MD PhD Active PX MULTIVITAMINS 28-0.8 MG TABS Take 1 tablet by mouth daily PX MULTIVITAMINS 28-0.8 MG TABS VIT-FE FUMARATE-FA Inactive TRI-SPRINTEC 0.18/0.215/0.25 MG-35 MCG TABS 1 po qd as directed TRI-SPRINTEC 0.18/0.215/0.25 MG-35 MCG TABS 469568 NORGESTIM-ETH ESTRAD TRIPHASIC Inactive METRONIDAZOLE 250 MG TABS 1 TID METRONIDAZ OLE 250 MG TABS 235195 METRONIDAZOLE Inactive ZOFRAN ODT 4 MG TBDP 1 po q6hr PRN Nausea ZOFRAN ODT 4 MG TBDP 954020 ONDANSETRON Inactive 1 30-0.975-200 MG CAPS 1 qDay 3 1 30-0.975-200 MG CAPS MV-MIN-FE FUM-FA-DHA Inactive BENADRYL 25 MG CAP 25-50 mg po q 4-6 hours PRN BENADRYL 25 MG CAP 4476578 DIPHENHYDRAMINE HCL Inactive LORATADINE 10 MG TABS 1 tablet by mouth daily in the AM LORATADINE 10 MG TABS 568263 LORATADINE Inactive HYDROCODONE-ACETAMINOPHEN 5-325 MG TABS 1 q 4-6 hrs prn HYDROCODONE-ACETAMINOPHEN 5-325 MG TABS 843416 HYDROCODONE-ACETAMIN OPHEN Inactive NEXPLANON 68 MG IMPL replace every 3 years NEXPLA NON 68 MG IMPL ETONOGESTREL Inactive BACTRIM DS 800-160 MG TAB 1 tab by mouth twice daily 2 BACTRIM DS 800-160 MG TAB TRIMETHOPRIM-SULFAMETHOXAZOLE Inac tive NITROFURANTOIN MONOHYD MACRO 100 MG CAPS 1 .bid NITROFURANTOIN MONOHYD MACRO 100 MG CAPS 731004 NITROFURANTOIN MONO HYD MACRO Inactive ZANTAC 150 MG TAB 1 po BID ZANTAC 150 MG TAB 19 8191 RANITIDINE HCL Inactive DIFLUCAN 150 MG TAB 1 qODay x 2 doses DIFLUCAN 150 MG TAB 269801 FLUCONAZOLE Inactive ZITHROMAX 250 MG TAB 2 po today, then 1 po q days 2-5 ZITHROMAX 250 MG TAB 8580355 AZITHROMYCIN Inactive BACTRIM DS 800-160 MG TAB 1 tab by mouth twice daily 2 BACTRIM DS 800-160 MG TAB TRIMETHOPRIM-SULFAMETHOXAZOLE Inac tive PROTONIX 40 MG SOLR 1 po q a.m. PROTONIX 40 MG SOLR 564805 PANTOPRAZOLE SODIUM Inactive CLARITHROMYCIN 500 MG TABS 1 tablet by mouth twice daily CLARITHROMYCIN 500 MG TABS 159046 CLARITHROMYCIN Inactive FLAGYL 500 MG TAB 1 tablet by mouth two times daily 20 29/01/27 FLAGYL 500 MG TAB 424377 METRONIDAZOLE Inactive Immunizations Vaccine Administration Date Value [...] Range Description blood pressure, diastolic - 8462-4 69 mm[Hg] BP martin blood pressure, systolic - 8480-6 121 mm[Hg] BP sys pulse rate E&M - 8867-4 94 /min H eart rate temperature E&M 98.8 [degF] Body temp erature weight E&M - 3141-9 174 [lb_av] Weigh t Measured blood pressure, diastolic - 8462-4 83 mm[Hg] [...] - 3141-9 175 [lb_av] Weigh t Measured Diagnostic Results Date Name Value Unit Range Description Lab Report: Chlamydia/GC APTIMA/47478 - Lab chlamydia DNA probe NOT DETECTED NOT DETECTED Lab Report: Chlamydia/GC APTIMA/64424 - Microbiology Neisseria gonorrhoeae DNA probe NOT DETECTED NO T DETECTED Lab Report: H. Pylori, Comp. Metabolic P jared, CBC W/DIFF - Chemistry sodium, serum 139 mmol/L 174-301 9908/06/11 potassium, serum 4.2 mmol/L 3.5-5.2 chloride, serum [...] protein, total urine random Trace mg/dL Negative Lab Report: UADIP W/MICRO, AUTO - Urinal ysis glucose, urine, semiquantitative Negative Neg ative ketones, urine, by test strip Negative Negati ve bilirubin, urine Negative Negative urine color Yellow Colorless;Lightyellow;St raw;Yellow appearance, urine Cloudy Clear specific gravity, urine 1.025 1.000-1.030 pH, urine, semiquantitative 6.0 5.0-8.5 urobilinogen, urine, semiquantitative (dipstick) 0.2 Normal leukocyte esterase, urine, by dipstick 2+ Negative nitrite, urine, semiquantitative Negative Neg ative Encounters Code Encounter Date Provider Facility CPT-57536 Level 3 Est. Patient 17:34:39 CDT Erica del angel MD PhD [facility] CPT-66693 Level 3 Est. Patient 15:37:34 INSEAM TRIMMING MACHINE OPERATOR Gabrielle Montenegro [facility] CPT-29182 Level 3 Est. Patient 11:00:48 CDT Erica del angel MD PhD [facility] CPT-15207 Level 3 Est. Patient 14:15:09 INSEAM TRIMMING MACHINE OPERATOR Jair boudreaux [facility] CPT-91588 Level 4 Est. Patient 14:28:18 CDT Erica del angel MD PhD [facility] Procedures Code Procedure Name Date Entry Date Standard Desc ription CPT-OV Office Visit 15:00:46 CDT CPT-OV Office Visit 16:12:37 INSEAM TRIMMING MACHINE OPERATOR CPT-64430 Nexplanon Placement 06:24:16 CDT CPT-J7307 Nexplanon (Implant) 06:24:16 CDT CPT-OV Office Visit 06:24:16 CDT CPT-61325 UHCG (floor use only) 12:59:32 CDT CPT-OV Office Visit 10:46:11 CDT CPT-98293 Visit 14:16:15 INSEAM TRIMMING MACHINE OPERATOR CPT-06747 Visit 13:53:01 INSEAM TRIMMING MACHINE OPERATOR CPT-57710 Visit 18:31:27 INSEAM TRIMMING MACHINE OPERATOR CPT-07896 Sono OB comp > 14 weeks 17:35:57 INSEAM TRIMMING MACHINE OPERATOR 06/24 CPT-35502 Tubersol 13:49:34 INSEAM TRIMMING MACHINE OPERATOR CPT-12993 Administration single or combination vac cine inc oral 13:49:34 INSEAM TRIMMING MACHINE OPERATOR CPT-05445 TB Tubersol 13:49:34 INSEAM TRIMMING MACHINE OPERATOR CPT-86457 Visit 11:06:01 INSEAM TRIMMING MACHINE OPERATOR CPT-69262 Visit 11:47:38 CDT CPT-74404 TB Tubersol 10:44:14 CDT CPT-39982 Visit 15:16:49 CDT CPT-33161 Visit 16:33:29 CDT CPT-37220 Sono OB comp > 14 weeks 11:45:03 CDT 04/23 CPT-96856 Visit 10:03:29 CDT CPT-31314 Visit 10:35:45 CDT CPT-96853 Visit 11:10:45 CDT CPT-59356 Spec Collection and Handling Fee 14:28:18 C DT CPT-51619 Sono OB transvag <14 weeks 14:51:23 CDT 201 09/23/14 CPT-14750 Spec Collection and Handling Fee 11:21:[address] CPT-23048 Visit 11:49:17 INSEAM TRIMMING MACHINE OPERATOR CPT-89168 Visit 10:55:44 INSEAM TRIMMING MACHINE OPERATOR CPT-84525 Visit 10:28:35 INSEAM TRIMMING MACHINE OPERATOR CPT-74232 Visit 09:50:13 INSEAM TRIMMING MACHINE OPERATOR CPT-48400 Visit 22:07:15 CDT CPT-24238 Visit 09:05:22 CDT CPT-01301 Sono OB comp > 14 weeks 17:37:04 CDT 05/22 CPT-35603 Visit 10:00:01 CDT
--- OUTSIDE RECORDS SUMMARY | 2019-12-06 08:13 | XMS REPORT | Clinical Summary ---
Author Author Admin, Carmella Casarez Organization [facility] Address Unknown Phone Unavailable Allergies, Adverse Reactions, [...] [age] Resolved Erica Gutierrez MD PhD '[id number]' without me ntion of malnutrition, unspecified [weight] [...] Dysmenorrhea 625.3 Active Marimar Newsome MD Dysmenorrhea SMALL FOR GESTATIONAL AGE ICD-764.00 Inactive Erica Gutierrez MD PhD EXAMINATION ICD-V24.2 Inactive Sterling Gutierrez MD PhD SUPRAPUBIC PAIN ICD-789.09 Inactive Erica still MD PhD CONTRACEPTION MANAGEMENT ICD-V25.09 Inactive Erica Gutierrez MD PhD OTHER SPECIFED COMPLICATION ANTEPARTUM ICD-646.83 20 07/24/03 Inactive Erica Gutierrez MD PhD ICD-V22.2 Inactive Erica Gutierrez MD Ph D , NORMAL ICD-V22.2 Inactive Erica donnelly MD PhD UTI ICD-599.0 Inactive Erica Gutierrez MD PhD 201 09/27/23 VAGINITIS ICD-616.10 Inactive Erica Gutierrez MD P hD URTICARIA ICD-708.9 Inactive Erica Gutierrez MD Ph D UTERINE SIZE DATE DISCREPANCY ANTPRTM COND/COMPL ICD-649.63 Inactive Erica Gutierrez MD PhD CANDIDIASIS, VAGINAL ICD-112.1 Inactive Erica Gutierrez MD PhD Pharyngitis, acute ICD-074.0 Inactive Erica del angel MD PhD Otitis media, left ICD-382.9 Inactive Erica del angel MD PhD SEXUALLY TRANSMITTED DISEASE, EXPOSURE TO ICD-V01.6 Inactive Erica Gutierrez MD PhD VAGINAL BLEEDING, FIRST TRIMESTER ICD-641.90 In active Erica Gutierrez MD PhD Medication List Medication Instructions Start Date Stop Date Generic Name NDC Status Provider Patient Instruction NEXPLANON 68 MG IMPL every 3 years ETONOGESTREL 55100019 001 Active Marimar Newsome MD Active FLAGYL 500 MG TAB 1 tablet by mouth two times daily 20 29/01/27 METRONIDAZOLE 26486737584 No Longer Active Erica Gutierrez MD PhD Act sirisha CLARITHROMYCIN 500 MG TABS 1 tablet by mouth twice daily CLARITHROMYCIN 33464822958 No Longer Active Erica Gutierrez MD PhD Ac tive PROTONIX 40 MG SOLR 1 po q a.m. PANTOPRAZOLE SO DIUM 02008917504 No Longer Active Erica Gutierrez MD PhD Active BACTRIM DS 800-160 MG TAB 1 tab by mouth twice daily 2 TRIMETHOPRIM-SULFAMETHOXAZOLE 23425625605 No Longer Active Erica Gutierrez MD P hD Active ZITHROMAX 250 MG TAB 2 po today, then 1 po q days 2-5 AZITHROMYCIN 56494499464 No Longer Active Gabrielle Dill APRN Acti ve NEXPLANON 68 MG IMPL replace every 3 years ETON OGESTREL 36657457168 No Longer Active Gabrielle Dill APRN Active HYDROCODONE-ACETAMINOPHEN 5-325 MG TABS 1 q 4-6 hrs prn HYDROCODONE-ACETAMINOPHEN 94045482818 No Longer Active Gabrielle Dill APRN Active DIFLUCAN 150 MG TAB 1 qODay x 2 doses FLUCONAZO LE 75215393255 No Longer Active Erica Gutierrez MD PhD Active LORATADINE 10 MG TABS 1 tablet by mouth daily in the AM LORATADINE 59188943792 No Longer Active Erica Gutierrez MD PhD Acti ve BENADRYL 25 MG CAP 25-50 mg po q 4-6 hours PRN DIPHENHYDRAMINE HCL 38976604568 No Longer Active Erica Gutierrez MD PhD Active 1 30-0.975-200 MG CAPS 1 qDay 3 MV-MIN-FE FUM-FA-DHA 44953829404 No Longer Active Jillina Frazell ASSEMBLER [employer] Act sirisha ZANTAC 150 MG TAB 1 po BID RANITIDINE HCL 86435 896402 No Longer Active Erica Gutierrez MD PhD Active ZOFRAN ODT 4 MG TBDP 1 po q6hr PRN Nausea ONDAN SETRON 55112657903 No Longer Active Erica Gutierrez MD PhD Active METRONIDAZOLE 250 MG TABS 1 TID METRONIDAZOL E 65955204085 No Longer Active Erica Gutierrez MD PhD Active NITROFURANTOIN MONOHYD MACRO 100 MG CAPS 1 .bid NITROFURANTOIN MONOHYD MACRO 74611706033 No Longer Active Erica Gutierrez MD PhD Active TRI-SPRINTEC 0.18/0.215/0.25 MG-35 MCG TABS 1 po qd as directed NORGESTIM-ETH ESTRAD TRIPHASIC 32397940133 No Longer Active Erica Gutierrez MD PhD Active BACTRIM DS 800-160 MG TAB 1 tab by mouth twice daily 2 TRIMETHOPRIM-SULFAMETHOXAZOLE 51804634869 No Longer Active Erica Gutierrez MD P Active PX MULTIVITAMINS 28-0.8 MG TABS Take 1 tablet by mouth daily VIT-FE FUMARATE-FA 56421428596 No Longer Active Erica Gutierrez MD PhD Active PX MULTIVITAMINS 28-0.8 MG TABS Take 1 tablet by mouth daily PX MULTIVITAMINS 28-0.8 MG TABS VIT-FE FUMARATE-FA Inactive TRI-SPRINTEC 0.18/0.215/0.25 MG-35 MCG TABS 1 po qd as directed TRI-SPRINTEC 0.18/0.215/0.25 MG-35 MCG TABS 921742 NORGESTIM-ETH ESTRAD TRIPHASIC Inactive METRONIDAZOLE 250 MG TABS 1 TID METRONIDAZ OLE 250 MG TABS 791607 METRONIDAZOLE Inactive ZOFRAN ODT 4 MG TBDP 1 po q6hr PRN Nausea ZOFRAN ODT 4 MG TBDP 091659 ONDANSETRON Inactive 1 30-0.975-200 MG CAPS 1 qDay 3 1 30-0.975-200 MG CAPS MV-MIN-FE FUM-FA-DHA Inactive BENADRYL 25 MG CAP 25-50 mg po q 4-6 hours PRN BENADRYL 25 MG CAP 2227333 DIPHENHYDRAMINE HCL Inactive LORATADINE 10 MG TABS 1 tablet by mouth daily in the AM LORATADINE 10 MG TABS 230041 LORATADINE Inactive HYDROCODONE-ACETAMINOPHEN 5-325 MG TABS 1 q 4-6 hrs prn HYDROCODONE-ACETAMINOPHEN 5-325 MG TABS 090396 HYDROCODONE-ACETAMIN OPHEN Inactive NEXPLANON 68 MG IMPL replace every 3 years NEXPLA NON 68 MG IMPL ETONOGESTREL Inactive BACTRIM DS 800-160 MG TAB 1 tab by mouth twice daily 2 BACTRIM DS 800-160 MG TAB TRIMETHOPRIM-SULFAMETHOXAZOLE Inac tive NITROFURANTOIN MONOHYD MACRO 100 MG CAPS 1 .bid NITROFURANTOIN MONOHYD MACRO 100 MG CAPS 959069 NITROFURANTOIN MONO HYD MACRO Inactive ZANTAC 150 MG TAB 1 po BID ZANTAC 150 MG TAB 19 8191 RANITIDINE HCL Inactive DIFLUCAN 150 MG TAB 1 qODay x 2 doses DIFLUCAN 150 MG TAB 547070 FLUCONAZOLE Inactive ZITHROMAX 250 MG TAB 2 po today, then 1 po q days 2-5 ZITHROMAX 250 MG TAB 3456597 AZITHROMYCIN Inactive BACTRIM DS 800-160 MG TAB 1 tab by mouth twice daily 2 BACTRIM DS 800-160 MG TAB TRIMETHOPRIM-SULFAMETHOXAZOLE Inac tive PROTONIX 40 MG SOLR 1 po q a.m. PROTONIX 40 MG SOLR 854095 PANTOPRAZOLE SODIUM Inactive CLARITHROMYCIN 500 MG TABS 1 tablet by mouth twice daily CLARITHROMYCIN 500 MG TABS 539144 CLARITHROMYCIN Inactive FLAGYL 500 MG TAB 1 tablet by mouth two times daily 20 29/01/27 FLAGYL 500 MG TAB 652967 METRONIDAZOLE Inactive Immunizations Vaccine Administration Date Value [...] #3 Historical hepatitis B vaccine, unspecified formulation DPT immunization #3 DTaP hepatitis B vaccine #2 given Historical hep atitis B vaccine, unspecified formulation Hemophilus influenza B immunization #3 Historica l Haemophilus influenzae type b vaccine, conjugate unspecified formulation oral polio vaccine (OPV) #3 IPV vitaliy ovirus vaccine, unspecified formulation MMR (measles, mumps, rubella) virus immunization #1 MMR Hemophilus influenza B immunization #2 Historica l Haemophilus influenzae type b vaccine, conjugate unspecified formulation oral polio vaccine (OPV) #2 IPV vitaliy ovirus vaccine, unspecified formulation DPT immunization #2 DTaP hepatitis B vaccine #1 given Historical hep atitis B vaccine, unspecified formulation oral polio vaccine (OPV) #1 IPV vitaliy ovirus vaccine, unspecified formulation Hemophilus influenza B immunization #1 Historica l Haemophilus influenzae type b vaccine, conjugate unspecified formulation DPT immunization #1 DTaP Vital Signs Date Name Value Unit Range [...] Value Unit Range Description Lab Report: Chlamydia/GC APTIMA/82120 - Lab chlamydia DNA probe NOT DETECTED NOT DETECTED Lab Report: Chlamydia/GC APTIMA/64546 - Microbiology Neisseria gonorrhoeae DNA probe NOT DETECTED NO T DETECTED Lab Report: H. Pylori, Comp. Metabolic P jared, CBC W/DIFF - Chemistry sodium, serum 139 mmol/L 851-194 9799/06/11 potassium, serum 4.2 mmol/L 3.5-5.2 chloride, serum [...] ative Encounters Code Encounter Date Provider Facility CPT-57911 Level 3 Est. Patient 17:34:39 CDT Erica del angel MD PhD [facility] CPT-96691 Level 3 Est. Patient 15:37:34 NUMERICAL CONTROL MACHINE TOOL OPERATOR Gabrielle Montenegro [facility] CPT-42794 Level 3 Est. Patient 11:00:48 CDT Erica del angel MD PhD [facility] CPT-61581 Level 3 Est. Patient 14:15:09 NUMERICAL CONTROL MACHINE TOOL OPERATOR Jair boudreaux [facility] CPT-13291 Level 4 Est. Patient 14:28:18 CDT Erica del angel MD PhD [facility] Procedures Code Procedure Name Date Entry Date Standard Desc ription CPT-OV Office Visit 15:00:46 CDT CPT-OV Office Visit 16:12:37 NUMERICAL CONTROL MACHINE TOOL OPERATOR CPT-99603 Nexplanon Placement 06:24:16 CDT CPT-J7307 Nexplanon (Implant) 06:24:16 CDT CPT-OV Office Visit 06:24:16 CDT CPT-33749 UHCG (floor use only) 12:59:32 CDT CPT-OV Office Visit 10:46:11 CDT CPT-35886 Visit 14:16:15 NUMERICAL CONTROL MACHINE TOOL OPERATOR CPT-61766 Visit 13:53:01 NUMERICAL CONTROL MACHINE TOOL OPERATOR CPT-47499 Visit 18:31:27 NUMERICAL CONTROL MACHINE TOOL OPERATOR CPT-47622 Sono OB comp > 14 weeks 17:35:57 NUMERICAL CONTROL MACHINE TOOL OPERATOR 06/24 CPT-92782 Tubersol 13:49:34 NUMERICAL CONTROL MACHINE TOOL OPERATOR CPT-32147 Administration single or combination vac cine inc oral 13:49:34 NUMERICAL CONTROL MACHINE TOOL OPERATOR CPT-25050 TB Tubersol 13:49:34 NUMERICAL CONTROL MACHINE TOOL OPERATOR CPT-86036 Visit 11:06:01 NUMERICAL CONTROL MACHINE TOOL OPERATOR CPT-19473 Visit 11:47:38 CDT CPT-02003 TB Tubersol 10:44:14 CDT CPT-76598 Visit 15:16:49 CDT CPT-83771 Visit 16:33:29 CDT CPT-10479 Sono OB comp > 14 weeks 11:45:03 CDT 04/23 CPT-43795 Visit 10:03:29 CDT CPT-78606 Visit 10:35:45 CDT CPT-77337 Visit 11:10:45 CDT CPT-80178 Spec Collection and Handling Fee 14:28:18 C DT CPT-88608 Sono OB transvag <14 weeks 14:51:23 CDT 201 09/23/14 CPT-86218 Spec Collection and Handling Fee 11:21:[address] CPT-27630 Visit 11:49:17 NUMERICAL CONTROL MACHINE TOOL OPERATOR CPT-06072 Visit 10:55:44 NUMERICAL CONTROL MACHINE TOOL OPERATOR CPT-10418 Visit 10:28:35 NUMERICAL CONTROL MACHINE TOOL OPERATOR CPT-44849 Visit 09:50:13 NUMERICAL CONTROL MACHINE TOOL OPERATOR CPT-30676 Visit 22:07:15 CDT CPT-09091 Visit 09:05:22 CDT CPT-53400 Sono OB comp > 14 weeks 17:37:04 CDT 05/22 CPT-00489 Visit 10:00:01 CDT
--- OUTSIDE RECORDS SUMMARY | 2019-12-06 08:14 | XMS REPORT | Clinical Summary ---
Author Author Admin, Carmella Casarez Organization [facility] Address Unknown Phone Unavailable Allergies, Adverse [...] [age] Resolved Erica Gutierrez MD PhD '[id number]' without me ntion of malnutrition, unspecified [weight] [...] by mouth twice daily, for UTI SULFAMETHOXAZOLE-TRIMETHOPRIM [id number] Active Erica still MD PhD Active PREVPAC MISC take as directed, twice daily XDIRECVRF-METKGXNRU-FJVQRXNNY 16729480987 Active Erica Gutierrez MD PhD Active NEXPLANON 68 MG IMPL every 3 years ETONOGESTREL 74664629 001 Active Marimar Newsome MD Active FLAGYL 500 MG TAB 1 tablet by mouth two times daily 20 29/01/27 METRONIDAZOLE 06732651561 No Longer Active Erica Gutierrez MD PhD Act sirisha CLARITHROMYCIN 500 MG TABS 1 tablet by mouth twice daily CLARITHROMYCIN 61617428118 No Longer Active Eirca Gutierrez MD PhD Ac tive PROTONIX 40 MG SOLR 1 po q a.m. PANTOPRAZOLE SO DIUM 17928840435 No Longer Active Erica Gutierrze MD PhD Active BACTRIM DS 800-160 MG TAB 1 tab by mouth twice daily 2 TRIMETHOPRIM-SULFAMETHOXAZOLE 30688409819 No Longer Active Erica Gutierrez MD P hD Active ZITHROMAX 250 MG TAB 2 po today, then 1 po q days 2-5 AZITHROMYCIN 02916684887 No Longer Active Gabrielle Dill APRN Acti ve NEXPLANON 68 MG IMPL replace every 3 years ETON OGESTREL 21549078943 No Longer Active Gabrielle Dill APRN Active HYDROCODONE-ACETAMINOPHEN 5-325 MG TABS 1 q 4-6 hrs prn HYDROCODONE-ACETAMINOPHEN 66336203406 No Longer Active Gabrielle Dill APRN Active DIFLUCAN 150 MG TAB 1 qODay x 2 doses FLUCONAZO LE 77342878677 No Longer Active Erica Gutierrez MD PhD Active LORATADINE 10 MG TABS 1 tablet by mouth daily in the AM LORATADINE 94295817425 No Longer Active Erica Gutierrez MD PhD Acti ve BENADRYL 25 MG CAP 25-50 mg po q 4-6 hours PRN DIPHENHYDRAMINE HCL 36434877318 No Longer Active Erica Gutierrez MD PhD Active 1 30-0.975-200 MG CAPS 1 qDay 3 MV-MIN-FE FUM-FA-DHA 90670310856 No Longer Active Jair Paez DIRECTOR TRANSPORTATION Act sirisha ZANTAC 150 MG TAB 1 po BID RANITIDINE HCL 20049 656480 No Longer Active Erica Gutierrez MD PhD Active ZOFRAN ODT 4 MG TBDP 1 po q6hr PRN Nausea ONDAN SETRON 31383190552 No Longer Active Erica Gutierrez MD PhD Active METRONIDAZOLE 250 MG TABS 1 TID METRONIDAZOL E 57506063292 No Longer Active Erica Gutierrez MD PhD Active NITROFURANTOIN MONOHYD MACRO 100 MG CAPS 1 .bid NITROFURANTOIN MONOHYD MACRO 88736199344 No Longer Active Erica Gutierrez MD PhD Active TRI-SPRINTEC 0.18/0.215/0.25 MG-35 MCG TABS 1 po qd as directed NORGESTIM-ETH ESTRAD TRIPHASIC 40065286969 No Longer Active Erica Gutierrez MD PhD Active BACTRIM DS 800-160 MG TAB 1 tab by mouth twice daily 2 TRIMETHOPRIM-SULFAMETHOXAZOLE 80873645541 No Longer Active Erica Gutierrez MD P hD Active PX MULTIVITAMINS 28-0.8 MG TABS Take 1 tablet by mouth daily VIT-FE FUMARATE-FA 75176070380 No Longer Active Erica Gutierrez MD PhD Active PX MULTIVITAMINS 28-0.8 MG TABS Take 1 tablet by mouth daily PX MULTIVITAMINS 28-0.8 MG TABS VIT-FE FUMARATE-FA Inactive TRI-SPRINTEC 0.18/0.215/0.25 MG-35 MCG TABS 1 po qd as directed TRI-SPRINTEC 0.18/0.215/0.25 MG-35 MCG TABS 763299 NORGESTIM-ETH ESTRAD TRIPHASIC Inactive METRONIDAZOLE 250 MG TABS 1 TID METRONIDAZ OLE 250 MG TABS 510492 METRONIDAZOLE Inactive ZOFRAN ODT 4 MG TBDP 1 po q6hr PRN Nausea ZOFRAN ODT 4 MG TBDP 659228 ONDANSETRON Inactive 1 30-0.975-200 MG CAPS 1 qDay 3 1 30-0.975-200 MG CAPS MV-MIN-FE FUM-FA-DHA Inactive BENADRYL 25 MG CAP 25-50 mg po q 4-6 hours PRN BENADRYL 25 MG CAP 2694371 DIPHENHYDRAMINE HCL Inactive LORATADINE 10 MG TABS 1 tablet by mouth daily in the AM LORATADINE 10 MG TABS 633075 LORATADINE Inactive HYDROCODONE-ACETAMINOPHEN 5-325 MG TABS 1 q 4-6 hrs prn HYDROCODONE-ACETAMINOPHEN 5-325 MG TABS 919994 HYDROCODONE-ACETAMIN OPHEN Inactive NEXPLANON 68 MG IMPL replace every 3 years NEXPLA NON 68 MG IMPL ETONOGESTREL Inactive BACTRIM DS 800-160 MG TAB 1 tab by mouth twice daily 2 BACTRIM DS 800-160 MG TAB TRIMETHOPRIM-SULFAMETHOXAZOLE Inac tive NITROFURANTOIN MONOHYD MACRO 100 MG CAPS 1 .bid NITROFURANTOIN MONOHYD MACRO 100 MG CAPS 480719 NITROFURANTOIN MONO HYD MACRO Inactive ZANTAC 150 MG TAB 1 po BID ZANTAC 150 MG TAB 19 8191 RANITIDINE HCL Inactive DIFLUCAN 150 MG TAB 1 qODay x 2 doses DIFLUCAN 150 MG TAB 439348 FLUCONAZOLE Inactive ZITHROMAX 250 MG TAB 2 po today, then 1 po q days 2-5 ZITHROMAX 250 MG TAB 4222676 AZITHROMYCIN Inactive BACTRIM DS 800-160 MG TAB 1 tab by mouth twice daily 2 BACTRIM DS 800-160 MG TAB TRIMETHOPRIM-SULFAMETHOXAZOLE Inac tive PROTONIX 40 MG SOLR 1 po q a.m. PROTONIX 40 MG SOLR 972629 PANTOPRAZOLE SODIUM Inactive CLARITHROMYCIN 500 MG TABS 1 tablet by mouth twice daily CLARITHROMYCIN 500 MG TABS 286267 CLARITHROMYCIN Inactive FLAGYL 500 MG TAB 1 tablet by mouth two times daily 29/01/27 FLAGYL 500 MG TAB 941227 METRONIDAZOLE Inactive Immunizations Vaccine Administration Date Value [...] Value Unit Range Description Lab Report: Chlamydia/GC APTIMA/54273 - Lab chlamydia DNA probe NOT DETECTED NOT DETECTED Lab Report: Chlamydia/GC APTIMA/30155 - Microbiology Neisseria gonorrhoeae DNA probe NOT DETECTED NO T DETECTED Lab Report: H. Pylori, Comp. Metabolic P jared, CBC W/DIFF - Chemistry sodium, serum 139 mmol/L 241-191 9207/06/11 potassium, serum 4.2 mmol/L 3.5-5.2 chloride, serum [...] 5.0-8.5 Encounters Code Encounter Date Provider Facility CPT-92287 Level 3 Est. Patient 17:34:39 CDT Erica del angel MD PhD [facility] CPT-38496 Level 3 Est. Patient 15:37:34 FACILITY MECHANIC Gabrielle Montenegro [facility] CPT-17850 Level 3 Est. Patient 11:00:48 CDT Erica del angel MD PhD [facility] CPT-31354 Level 3 Est. Patient 14:15:09 FACILITY MECHANIC Jair boudreaux [facility] CPT-32555 Level 4 Est. Patient 14:28:18 CDT Erica del angel MD PhD [facility] Procedures Code Procedure Name Date Entry Date Standard Desc ription CPT-OV Office Visit 15:00:46 CDT CPT-OV Office Visit 16:12:37 FACILITY MECHANIC CPT-24888 Nexplanon Placement 06:24:16 CDT CPT-J7307 Nexplanon (Implant) 06:24:16 CDT CPT-OV Office Visit 06:24:16 CDT CPT-99301 UHCG (floor use only) 12:59:32 CDT CPT-OV Office Visit 10:46:11 CDT CPT-32920 Visit 14:16:15 FACILITY MECHANIC CPT-50732 Visit 13:53:01 FACILITY MECHANIC CPT-74210 Visit 18:31:27 FACILITY MECHANIC CPT-28959 Sono OB comp > 14 weeks 17:35:57 FACILITY MECHANIC 06/24 CPT-35795 Tubersol 13:49:34 FACILITY MECHANIC CPT-53594 Administration single or combination vac cine inc oral 13:49:34 FACILITY MECHANIC CPT-16278 TB Tubersol 13:49:34 FACILITY MECHANIC CPT-35422 Visit 11:06:01 FACILITY MECHANIC CPT-23607 Visit 11:47:38 CDT CPT-34180 TB Tubersol 10:44:14 CDT CPT-33813 Visit 15:16:49 CDT CPT-00900 Visit 16:33:29 CDT CPT-69017 Sono OB comp > 14 weeks 11:45:03 CDT 04/23 CPT-68469 Visit 10:03:29 CDT CPT-68379 Visit 10:35:45 CDT CPT-36803 Visit 11:10:45 CDT CPT-98749 Spec Collection and Handling Fee 14:28:18 C DT CPT-43487 Sono OB transvag <14 weeks 14:51:23 CDT 201 09/23/14 CPT-33965 Spec Collection and Handling Fee 11:21:[address] CPT-89271 Visit 11:49:17 FACILITY MECHANIC CPT-95940 Visit 10:55:44 FACILITY MECHANIC CPT-93290 Visit 10:28:35 FACILITY MECHANIC CPT-18744 Visit 09:50:13 FACILITY MECHANIC CPT-41825 Visit 22:07:15 CDT CPT-11614 Visit 09:05:22 CDT CPT-29762 Sono OB comp > 14 weeks 17:37:04 CDT 05/22 CPT-86098 Visit 10:00:01 CDT
--- OUTSIDE RECORDS SUMMARY | 2019-12-06 08:14 | XMS REPORT | Clinical Summary ---
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 Status Provider Patient Instruction SPRINTEC 28 0.25-35 MG-MCG TABS one tab PO daily 09/05 NORGESTIMATE-ETH ESTRADIOL 33105622349 No Longer Active Jair Paez APRN Active NEXPLANON 68 MG IMPL every 3 years ETONOGESTREL 0 7486645955 No Longer Active Jair Paez APRN Active BACTRIM DS 800-160 MG TABS 1 pill by mouth twice daily, for UTI SULFAMETHOXAZOLE-TRIMETHOPRIM 98814843017 No Longer Active Corina Gutierrez MD PhD Active PREVPAC MISC take as directed, twice daily BOZTLWXCK-NPGTIVGXA-SFWUGJHIP 55623134758 No Longer Active Erica Gutierrez MD P hD Active FLAGYL 500 MG TAB 1 tablet by mouth two times daily 20 29/01/27 METRONIDAZOLE 24545075142 No Longer Active Erica Gutierrez MD PhD Act sirisha CLARITHROMYCIN 500 MG TABS 1 tablet by mouth twice daily CLARITHROMYCIN 39831714366 No Longer Active Erica Gutierrez MD PhD Ac tive PROTONIX 40 MG SOLR 1 po q a.m. PANTOPRAZOLE SO DIUM 65101484798 No Longer Active Erica Gutierrez MD PhD Active BACTRIM DS 800-160 MG TAB 1 tab by mouth twice daily 2 TRIMETHOPRIM-SULFAMETHOXAZOLE 18204891780 No Longer Active Erica Gutierrez MD P hD Active ZITHROMAX 250 MG TAB 2 po today, then 1 po q days 2-5 AZITHROMYCIN 17341425300 No Longer Active Gabrielle Dill APRN Acti ve NEXPLANON 68 MG IMPL replace every 3 years ETON OGESTREL 67743592539 No Longer Active Gabrielle Dill APRN Active HYDROCODONE-ACETAMINOPHEN 5-325 MG TABS 1 q 4-6 hrs prn HYDROCODONE-ACETAMINOPHEN 19850789337 No Longer Active Gabrielle Fuentes AUTOCUTTER Active DIFLUCAN 150 MG TAB 1 qODay x 2 doses FLUCONAZO LE 89908253462 No Longer Active Erica Gutierrez MD PhD Active LORATADINE 10 MG TABS 1 tablet by mouth daily in the AM LORATADINE 39887429128 No Longer Active Erica Gutierrez MD PhD Acti ve BENADRYL 25 MG CAP 25-50 mg po q 4-6 hours PRN DIPHENHYDRAMINE HCL 00279542250 No Longer Active Erica Gutierrez MD PhD Active 1 30-0.975-200 MG CAPS 1 qDay 3 MV-MIN-FE FUM-FA-DHA 53431954764 No Longer Active Jair Paez AUTOCUTTER Act sirisha ZANTAC 150 MG TAB 1 po BID RANITIDINE HCL 50513 786409 No Longer Active Erica Gutierrez MD PhD Active ZOFRAN ODT 4 MG TBDP 1 po q6hr PRN Nausea ONDAN SETRON 48076807273 No Longer Active Erica Gutierrez MD PhD Active METRONIDAZOLE 250 MG TABS 1 TID METRONIDAZOL E 31219900632 No Longer Active Erica Gutierrez MD PhD Active NITROFURANTOIN MONOHYD MACRO 100 MG CAPS 1 .bid NITROFURANTOIN MONOHYD MACRO 37115056530 No Longer Active Erica Gutierrez MD PhD Active TRI-SPRINTEC 0.18/0.215/0.25 MG-35 MCG TABS 1 po qd as directed NORGESTIM-ETH ESTRAD TRIPHASIC 48087936384 No Longer Active Erica Gutierrez MD PhD Active BACTRIM DS 800-160 MG TAB 1 tab by mouth twice daily 2 TRIMETHOPRIM-SULFAMETHOXAZOLE 29481056913 No Longer Active Erica Gutierrez MD P hD Active PX MULTIVITAMINS 28-0.8 MG TABS Take 1 tablet by mouth daily VIT-FE FUMARATE-FA 55812079479 No Longer Active Erica Gutierrez MD PhD Active PX MULTIVITAMINS 28-0.8 MG TABS Take 1 tablet by mouth daily PX MULTIVITAMINS 28-0.8 MG TABS VIT-FE FUMARATE-FA Inactive TRI-SPRINTEC 0.18/0.215/0.25 MG-35 MCG TABS 1 po qd as directed TRI-SPRINTEC 0.18/0.215/0.25 MG-35 MCG TABS 234386 NORGESTIM-ETH ESTRAD TRIPHASIC Inactive METRONIDAZOLE 250 MG TABS 1 TID METRONIDAZ OLE 250 MG TABS 109354 METRONIDAZOLE Inactive ZOFRAN ODT 4 MG TBDP 1 po q6hr PRN Nausea ZOFRAN ODT 4 MG TBDP 865197 ONDANSETRON Inactive 1 30-0.975-200 MG CAPS 1 qDay 3 1 30-0.975-200 MG CAPS MV-MIN-FE FUM-FA-DHA Inactive BENADRYL 25 MG CAP 25-50 mg po q 4-6 hours PRN BENADRYL 25 MG CAP 6710213 DIPHENHYDRAMINE HCL Inactive LORATADINE 10 MG TABS 1 tablet by mouth daily in the AM LORATADINE 10 MG TABS 256832 LORATADINE Inactive HYDROCODONE-ACETAMINOPHEN 5-325 MG TABS 1 q 4-6 hrs prn HYDROCODONE-ACETAMINOPHEN 5-325 MG TABS 352401 HYDROCODONE-ACETAMIN OPHEN Inactive NEXPLANON 68 MG IMPL replace every 3 years NEXPLA NON 68 MG IMPL ETONOGESTREL Inactive NEXPLANON 68 MG IMPL every 3 years NEXPLANON 68 M G IMPL ETONOGESTREL Inactive SPRINTEC 28 0.25-35 MG-MCG TABS one tab PO daily 09/05 SPRINTEC 28 0.25-35 MG-MCG TABS 079312 NORGESTIMATE-ETH ESTRADIOL Inactive BACTRIM DS 800-160 MG TAB 1 tab by mouth twice daily 2 BACTRIM DS 800-160 MG TAB TRIMETHOPRIM-SULFAMETHOXAZOLE Inac tive NITROFURANTOIN MONOHYD MACRO 100 MG CAPS 1 .bid NITROFURANTOIN MONOHYD MACRO 100 MG CAPS 326016 NITROFURANTOIN MONO HYD MACRO Inactive ZANTAC 150 MG TAB 1 po BID ZANTAC 150 MG TAB 19 8191 RANITIDINE HCL Inactive DIFLUCAN 150 MG TAB 1 qODay x 2 doses DIFLUCAN 150 MG TAB 769385 FLUCONAZOLE Inactive ZITHROMAX 250 MG TAB 2 po today, then 1 po q days 2-5 ZITHROMAX 250 MG TAB 9846828 AZITHROMYCIN Inactive BACTRIM DS 800-160 MG TAB 1 tab by mouth twice daily 2 BACTRIM DS 800-160 MG TAB TRIMETHOPRIM-SULFAMETHOXAZOLE Inac tive PROTONIX 40 MG SOLR 1 po q a.m. PROTONIX 40 MG SOLR 068160 PANTOPRAZOLE SODIUM Inactive CLARITHROMYCIN 500 MG TABS 1 tablet by mouth twice daily CLARITHROMYCIN 500 MG TABS 580004 CLARITHROMYCIN Inactive FLAGYL 500 MG TAB 1 tablet by mouth two times daily 20 29/01/27 FLAGYL 500 MG TAB 415551 METRONIDAZOLE Inactive PREVPAC MISC take as directed, twice daily PREV PAC MISC 480122 SYGMLISEA-VLPUNGKDB-MHCDSAWYD Inactive BACTRIM DS 800-160 MG TABS 1 [...] BP martin blood pressure, systolic - 8480-6 119 mm[Hg] BP sys pulse rate E&M - 8867-4 78 /min H eart rate temperature E&M 98.3 [degF] Body temp erature weight E&M - 3141-9 179 [lb_av] Weigh t Measured blood pressure, diastolic - 8462-4 72 mm[Hg] BP martin blood pressure, systolic - 8480-6 108 mm[Hg] BP sys pulse rate E&M - 8867-4 67 /min H eart rate temperature E&M 96.9 [degF] Body temp erature weight E&M - 3141-9 172 [lb_av] Weigh t Measured blood pressure, diastolic - 8462-4 79 mm[Hg] BP martin blood pressure, systolic - 8480-6 120 mm[Hg] BP sys height E&M - 8302-2 65 [in_us] Bdy h eight pulse rate E&M - 8867-4 80 /min H eart rate temperature E&M 98.1 [degF] Body temp erature weight E&M - 3141-9 172 [lb_av] Weigh t Measured blood pressure, diastolic - 8462-4 69 mm[Hg] BP martin blood pressure, systolic - 8480-6 121 mm[Hg] BP sys pulse rate E&M - 8867-4 94 /min H eart rate temperature E&M 98.8 [degF] Body temp erature weight E&M - 3141-9 174 [lb_av] Weigh t Measured Diagnostic Results Date Name Value Unit Range Description Lab Report: Chlamydia/GC APTIMA/12071 - Lab chlamydia DNA probe NOT DETECTED NOT DETECTED Lab Report: Chlamydia/GC APTIMA/92772 - Microbiology Neisseria gonorrhoeae DNA probe NOT DETECTED NO T DETECTED Lab Report: H. Pylori, Comp. Metabolic P jared, CBC W/DIFF - Chemistry sodium, serum 139 mmol/L 633-345 0965/06/11 potassium, serum 4.2 mmol/L 3.5-5.2 chloride, serum [...] random Trace mg/dL Negative RBC, urine, dipstick Negative Negative RBC, urine, dipstick Trace Negative protein, total urine random Negative mg/dL Negative Lab Report: UADIP W/MICRO, AUTO - Urinal ysis glucose, urine, semiquantitative Negative Neg ative ketones, urine, by test strip Negative Negati ve bilirubin, urine Negative Negative urobilinogen, urine, semiquantitative (dipstick) 0.2 Normal leukocyte esterase, urine, by dipstick 2+ Negative nitrite, urine, semiquantitative Negative Neg ative urobilinogen, urine, semiquantitative (dipstick) 0.2 Normal leukocyte esterase, urine, by dipstick Trace Negative nitrite, urine, semiquantitative Negative Neg ative specific gravity, urine 1.025 1.000-1.030 appearance, urine Cloudy Clear urine color Yellow Colorless;Lightyellow;St raw;Yellow glucose, urine, semiquantitative Negative Neg ative ketones, urine, by test strip Negative Negati ve bilirubin, urine Negative Negative pH, urine, semiquantitative 6.0 5.0-8.5 urine color Yellow Colorless;Lightyellow;St raw;Yellow appearance, urine Clear Clear specific gravity, urine 1.020 1.000-1.030 pH, urine, semiquantitative 7.0 5.0-8.5 Encounters Code Encounter Date Provider Facility CPT-84011 Level 3 Est. Patient 17:34:39 CDT Erica del angel MD PhD [facility] CPT-68042 Level 3 Est. Patient 15:37:34 PACKAGE DYER Gabrielle Montenegro [facility] [place] CPT-81146 Level 3 Est. Patient 11:00:48 CDT Erica del angel MD PhD [facility] CPT-33201 Level 3 Est. Patient 14:15:09 PACKAGE DYER Jair boudreaux [facility] CPT-56399 Level 4 Est. Patient 14:28:18 CDT Erica del angel MD PhD [facility] Procedures Code Procedure Name Date Entry Date Standard Desc ription CPT-65975 Nexplanon Removal 10:29:42 PACKAGE DYER CPT-OV Office Visit 10:29:42 PACKAGE DYER CPT-OV Office Visit 15:00:46 CDT CPT-OV Office Visit 16:12:37 PACKAGE DYER CPT-52531 Nexplanon Placement 06:24:16 CDT CPT-J7307 Nexplanon (Implant) 06:24:16 CDT CPT-OV Office Visit 06:24:16 CDT CPT-29116 UHCG (floor use only) 12:59:32 CDT CPT-OV Office Visit 10:46:11 CDT CPT-64359 Visit 14:16:15 PACKAGE DYER CPT-27546 Visit 13:53:01 PACKAGE DYER CPT-99890 Visit 18:31:27 PACKAGE DYER CPT-81394 Sono OB comp > 14 weeks 17:35:57 PACKAGE DYER 06/24 CPT-62341 Tubersol 13:49:34 PACKAGE DYER CPT-46005 Administration single or combination vac cine inc oral 13:49:34 PACKAGE DYER CPT-00350 TB Tubersol 13:49:34 PACKAGE DYER CPT-09948 Visit 11:06:01 PACKAGE DYER CPT-89610 Visit 11:47:38 CDT CPT-57299 TB Tubersol 10:44:14 CDT CPT-16042 Visit 15:16:49 CDT CPT-27416 Visit 16:33:29 CDT CPT-00887 Sono OB comp > 14 weeks 11:45:03 CDT 04/23 CPT-90959 Visit 10:03:29 CDT CPT-12778 Visit 10:35:45 CDT CPT-75095 Visit 11:10:45 CDT CPT-48099 Spec Collection and Handling Fee 14:28:18 C DT CPT-24652 Sono OB transvag <14 weeks 14:51:23 CDT 201 09/23/14 CPT-18465 Spec Collection and Handling Fee 11:21:[address] CPT-17866 Visit 11:49:17 PACKAGE DYER CPT-17756 Visit 10:55:44 PACKAGE DYER CPT-15756 Visit 10:28:35 PACKAGE DYER CPT-64148 Visit 09:50:13 PACKAGE DYER CPT-16560 Visit 22:07:15 CDT CPT-18125 Visit 09:05:22 CDT CPT-77940 Sono OB comp > 14 weeks 17:37:04 CDT 05/22 CPT-20729 Visit 10:00:01 CDT
--- OUTSIDE RECORDS SUMMARY | 2019-12-06 08:14 | XMS REPORT | Clinical Summary ---
Author Author Rosa, Carmella Casarez Organization [facility] Address Unknown Phone Unavailable Allergies, Adverse [...] [age] Resolved Erica Gutierrez MD PhD 'Rrgih-mbc-urpdt' without me ntion of malnutrition, unspecified [weight] [...] Dysmenorrhea Amenorrhea, secondary 626.0 Active Jair burnham REMARKETING REP Absence of menstruation ICD-V22.2 Inactive Erica Gutierrez [...] Instructions Start Date Stop Date Generic Name [facility] Status Provider Patient Instruction SPRINTEC 28 0.25-35 MG-MCG TABS one tab PO daily 09/05 NORGESTIMATE-ETH ESTRADIOL 44672154862 No Longer Active Jair Paez APRN Active NEXPLANON 68 MG IMPL every 3 years ETONOGESTREL 0 5811400771 No Longer Active Jair Paez APRN Active BACTRIM DS 800-160 MG TABS 1 pill by mouth twice daily, for UTI SULFAMETHOXAZOLE-TRIMETHOPRIM 96818390758 No Longer Active Corina Guteirrez MD PhD Active PREVPAC MISC take as directed, twice daily [id number] 96789193681 No Longer Active Erica Gutierrez MD P hD Active FLAGYL 500 MG TAB 1 tablet by mouth two times daily 20 29/01/27 METRONIDAZOLE 18152741994 No Longer Active Erica Gutierrez MD PhD Act sirisha CLARITHROMYCIN 500 MG TABS 1 tablet by mouth twice daily CLARITHROMYCIN 56607614344 No Longer Active Erica Gutierrez MD PhD Ac tive PROTONIX 40 MG SOLR 1 po q a.m. PANTOPRAZOLE SO DIUM 54656918870 No Longer Active Erica Gutierrez MD PhD Active BACTRIM DS 800-160 MG TAB 1 tab by mouth twice daily 2 TRIMETHOPRIM-SULFAMETHOXAZOLE 68269937846 No Longer Active Erica Gutierrez MD P hD Active ZITHROMAX 250 MG TAB 2 po today, then 1 po q days 2-5 AZITHROMYCIN 09948579668 No Longer Active Gabrielle Dill APRN Acti ve NEXPLANON 68 MG IMPL replace every 3 years ETON OGESTREL 88932631472 No Longer Active Gabrielle Dill APRN Active HYDROCODONE-ACETAMINOPHEN 5-325 MG TABS 1 q 4-6 hrs prn HYDROCODONE-ACETAMINOPHEN 07588937371 No Longer Active Gabrielle Fuentes REMARKETING REP Active DIFLUCAN 150 MG TAB 1 qODay x 2 doses FLUCONAZO LE 68026560200 No Longer Active Erica Gutierrez MD PhD Active LORATADINE 10 MG TABS 1 tablet by mouth daily in the AM LORATADINE 19617065258 No Longer Active Erica Gutierrez MD PhD Acti ve BENADRYL 25 MG CAP 25-50 mg po q 4-6 hours PRN DIPHENHYDRAMINE HCL 92023840885 No Longer Active Erica Gutierrez MD PhD Active 1 30-0.975-200 MG CAPS 1 qDay 3 MV-MIN-FE FUM-FA-DHA 52334022761 No Longer Active Jair Paez REMARKETING REP Act sirisha ZANTAC 150 MG TAB 1 po BID RANITIDINE HCL 16229 117490 No Longer Active Erica Gutierrez MD PhD Active ZOFRAN ODT 4 MG TBDP 1 po q6hr PRN Nausea ONDAN SETRON 58587796294 No Longer Active Erica Gutierrez MD PhD Active METRONIDAZOLE 250 MG TABS 1 TID METRONIDAZOL E 73404311474 No Longer Active Erica Gutierrez MD PhD Active NITROFURANTOIN MONOHYD MACRO 100 MG CAPS 1 .bid NITROFURANTOIN MONOHYD MACRO 91444842188 No Longer Active Erica Gutierrez MD PhD Active TRI-SPRINTEC 0.18/0.215/0.25 MG-35 MCG TABS 1 po qd as directed NORGESTIM-ETH ESTRAD TRIPHASIC 66708371521 No Longer Active Erica Gutierrez MD PhD Active BACTRIM DS 800-160 MG TAB 1 tab by mouth twice daily 2 TRIMETHOPRIM-SULFAMETHOXAZOLE 38905061841 No Longer Active Erica Gutierrez MD P hD Active PX MULTIVITAMINS 28-0.8 MG TABS Take 1 tablet by mouth daily VIT-FE FUMARATE-FA 10093644190 No Longer Active Erica Gutierrez MD PhD Active PX MULTIVITAMINS 28-0.8 MG TABS Take 1 tablet by mouth daily PX MULTIVITAMINS 28-0.8 MG TABS VIT-FE FUMARATE-FA Inactive TRI-SPRINTEC 0.18/0.215/0.25 MG-35 MCG TABS 1 po qd as directed TRI-SPRINTEC 0.18/0.215/0.25 MG-35 MCG TABS 314675 NORGESTIM-ETH ESTRAD TRIPHASIC Inactive METRONIDAZOLE 250 MG TABS 1 TID METRONIDAZ OLE 250 MG TABS 611702 METRONIDAZOLE Inactive ZOFRAN ODT 4 MG TBDP 1 po q6hr PRN Nausea ZOFRAN ODT 4 MG TBDP 034962 ONDANSETRON Inactive 1 30-0.975-200 MG CAPS 1 qDay 3 1 30-0.975-200 MG CAPS MV-MIN-FE FUM-FA-DHA Inactive BENADRYL 25 MG CAP 25-50 mg po q 4-6 hours PRN BENADRYL 25 MG CAP 3368848 DIPHENHYDRAMINE HCL Inactive LORATADINE 10 MG TABS 1 tablet by mouth daily in the AM LORATADINE 10 MG TABS 211761 LORATADINE Inactive HYDROCODONE-ACETAMINOPHEN 5-325 MG TABS 1 q 4-6 hrs prn HYDROCODONE-ACETAMINOPHEN 5-325 MG TABS 040479 HYDROCODONE-ACETAMIN OPHEN Inactive NEXPLANON 68 MG IMPL replace every 3 years NEXPLA NON 68 MG IMPL ETONOGESTREL Inactive NEXPLANON 68 MG IMPL every 3 years NEXPLANON 68 M G IMPL ETONOGESTREL Inactive SPRINTEC 28 0.25-35 MG-MCG TABS one tab PO daily 09/05 SPRINTEC 28 0.25-35 MG-MCG TABS 860374 NORGESTIMATE-ETH ESTRADIOL Inactive BACTRIM DS 800-160 MG TAB 1 tab by mouth twice daily 2 BACTRIM DS 800-160 MG TAB TRIMETHOPRIM-SULFAMETHOXAZOLE Inac tive NITROFURANTOIN MONOHYD MACRO 100 MG CAPS 1 .bid NITROFURANTOIN MONOHYD MACRO 100 MG CAPS 033901 NITROFURANTOIN MONO HYD MACRO Inactive ZANTAC 150 MG TAB 1 po BID ZANTAC 150 MG TAB 19 8191 RANITIDINE HCL Inactive DIFLUCAN 150 MG TAB 1 qODay x 2 doses DIFLUCAN 150 MG TAB 856797 FLUCONAZOLE Inactive ZITHROMAX 250 MG TAB 2 po today, then 1 po q days 2-5 ZITHROMAX 250 MG TAB 3327633 AZITHROMYCIN Inactive BACTRIM DS 800-160 MG TAB 1 tab by mouth twice daily 2 BACTRIM DS 800-160 MG TAB TRIMETHOPRIM-SULFAMETHOXAZOLE Inac tive PROTONIX 40 MG SOLR 1 po q a.m. PROTONIX 40 MG SOLR 392883 PANTOPRAZOLE SODIUM Inactive CLARITHROMYCIN 500 MG TABS 1 tablet by mouth twice daily CLARITHROMYCIN 500 MG TABS 918329 CLARITHROMYCIN Inactive FLAGYL 500 MG TAB 1 tablet by mouth two times daily 20 29/01/27 FLAGYL 500 MG TAB 667106 METRONIDAZOLE Inactive PREVPAC MISC take as directed, twice daily PREV PAC MISC 814641 RIFLOQOCD-FQAKBWRCQ-PJQMYACOH Inactive BACTRIM DS 800-160 MG TABS 1 [...] Value Unit Range Description Lab Report: Chlamydia/GC APTIMA/[id number] - Lab chlamydia DNA probe NOT DETECTED NOT DETECTED Lab Report: Chlamydia/GC APTIMA/[id number] - Microbiology Neisseria gonorrhoeae DNA probe NOT DETECTED NO T DETECTED Lab Report: H. Pylori, Comp. Metabolic P jared, CBC W/DIFF - Chemistry sodium, serum 139 mmol/L 810-252 7824/06/11 potassium, serum 4.2 mmol/L 3.5-5.2 chloride, serum [...] 5.0-8.5 Encounters Code Encounter Date Provider Facility CPT-61268 Level 3 Est. Patient 17:34:39 CDT Erica del angel MD PhD [facility] CPT-64527 Level 3 Est. Patient 15:37:34 INDUSTRIAL EDUCATION TEACHER Gabrielle Montenegro [facility] CPT-03331 Level 3 Est. Patient 11:00:48 CDT Erica del angel MD PhD [facility] CPT-72175 Level 3 Est. Patient 14:15:09 INDUSTRIAL EDUCATION TEACHER Jair boudreaux [facility] CPT-58293 Level 4 Est. Patient 14:28:18 CDT Erica del angel MD PhD [facility] Procedures Code Procedure Name Date Entry Date Standard Desc ription CPT-40188 Nexplanon Removal 10:29:42 INDUSTRIAL EDUCATION TEACHER CPT-OV Office Visit 10:29:42 INDUSTRIAL EDUCATION TEACHER CPT-OV Office Visit 15:00:46 CDT CPT-OV Office Visit 16:12:37 INDUSTRIAL EDUCATION TEACHER CPT-07167 Nexplanon Placement 06:24:16 CDT CPT-J7307 Nexplanon (Implant) 06:24:16 CDT CPT-OV Office Visit 06:24:16 CDT CPT-27925 [facility] (floor use only) 12:59:32 CDT CPT-OV Office Visit 10:46:11 CDT CPT-99960 Visit 14:16:15 INDUSTRIAL EDUCATION TEACHER CPT-10754 Visit 13:53:01 INDUSTRIAL EDUCATION TEACHER CPT-71669 Visit 18:31:27 INDUSTRIAL EDUCATION TEACHER CPT-30588 Sono OB comp > 14 weeks 17:35:57 INDUSTRIAL EDUCATION TEACHER 06/24 CPT-47056 Tubersol 13:49:34 INDUSTRIAL EDUCATION TEACHER CPT-94665 Administration single or combination vac cine inc oral 13:49:34 INDUSTRIAL EDUCATION TEACHER CPT-31305 TB Tubersol 13:49:34 INDUSTRIAL EDUCATION TEACHER CPT-74100 Visit 11:06:01 INDUSTRIAL EDUCATION TEACHER CPT-29275 Visit 11:47:38 CDT CPT-78420 TB Tubersol 10:44:14 CDT CPT-13198 Visit 15:16:49 CDT CPT-90734 Visit 16:33:29 CDT CPT-24791 Sono OB comp > 14 weeks 11:45:03 CDT 04/23 CPT-84120 Visit 10:03:29 CDT CPT-11458 Visit 10:35:45 CDT CPT-19947 Visit 11:10:45 CDT CPT-41519 Spec Collection and Handling Fee 14:28:18 C DT CPT-00439 Sono OB transvag <14 weeks 14:51:23 CDT 201 09/23/14 CPT-01376 Spec Collection and Handling Fee 11:21:[address] CPT-93892 Visit 11:49:17 INDUSTRIAL EDUCATION TEACHER CPT-62366 Visit 10:55:44 INDUSTRIAL EDUCATION TEACHER CPT-47234 Visit 10:28:35 INDUSTRIAL EDUCATION TEACHER CPT-90864 Visit 09:50:13 INDUSTRIAL EDUCATION TEACHER CPT-72312 Visit 22:07:15 CDT CPT-13641 Visit 09:05:22 CDT CPT-93929 Sono OB comp > 14 weeks 17:37:04 CDT 05/22 CPT-26040 Visit 10:00:01 CDT
--- OUTSIDE RECORDS SUMMARY | 2019-12-06 08:14 | XMS REPORT | Clinical Summary ---
Author Author Admin, Carmella Casarez Organization [facility] Address Unknown Phone Unavailable Allergies, Adverse Reactions, [...] [age] Resolved Erica Gutierrez MD PhD 'Poocu-xbt-clqut' without me ntion of malnutrition, unspecified [weight] [...] Generic Name NDC Status Provider Patient Instruction PREVPAC MISC take as directed, twice daily [id number]-ETUEOGQAC 03777217440 Active Erica Gutierrez MD PhD Active NEXPLANON 68 MG IMPL every 3 years ETONOGESTREL 42508432 001 Active Marimar Newsome MD Active FLAGYL 500 MG TAB 1 tablet by mouth two times daily 20 29/01/27 METRONIDAZOLE 11090504362 No Longer Active Erica Gutierrez MD PhD Act sirisha CLARITHROMYCIN 500 MG TABS 1 tablet by mouth twice daily CLARITHROMYCIN 29390933598 No Longer Active Erica Gutierrez MD PhD Ac tive PROTONIX 40 MG SOLR 1 po q a.m. PANTOPRAZOLE SO DIUM 78011795521 No Longer Active Erica Gutierrez MD PhD Active BACTRIM DS 800-160 MG TAB 1 tab by mouth twice daily 2 TRIMETHOPRIM-SULFAMETHOXAZOLE 28406170398 No Longer Active Erica Gutierrez MD P hD Active ZITHROMAX 250 MG TAB 2 po today, then 1 po q days 2-5 AZITHROMYCIN 21797151177 No Longer Active Gabrielle Dill APRN Acti ve NEXPLANON 68 MG IMPL replace every 3 years ETON OGESTREL 12041777450 No Longer Active Gabrielle Dill APRN Active HYDROCODONE-ACETAMINOPHEN 5-325 MG TABS 1 q 4-6 hrs prn HYDROCODONE-ACETAMINOPHEN 37638603608 No Longer Active Gabrielle Dill APRN Active DIFLUCAN 150 MG TAB 1 qODay x 2 doses FLUCONAZO LE 96767081327 No Longer Active Erica Gutierrez MD PhD Active LORATADINE 10 MG TABS 1 tablet by mouth daily in the AM LORATADINE 11367968337 No Longer Active Erica Gutierrez MD PhD Acti ve BENADRYL 25 MG CAP 25-50 mg po q 4-6 hours PRN DIPHENHYDRAMINE HCL 51517372022 No Longer Active Erica Gutierrez MD PhD Active 1 30-0.975-200 MG CAPS 1 qDay 3 MV-MIN-FE FUM-FA-DHA 14261271474 No Longer Active Jair Paez INSURANCE ADVISER Act sirisha ZANTAC 150 MG TAB 1 po BID RANITIDINE HCL 05597 977257 No Longer Active Erica Gutierrez MD PhD Active ZOFRAN ODT 4 MG TBDP 1 po q6hr PRN Nausea ONDAN SETRON 99100140084 No Longer Active Erica Gutierrez MD PhD Active METRONIDAZOLE 250 MG TABS 1 TID METRONIDAZOL E 14282376250 No Longer Active Erica Gutierrez MD PhD Active NITROFURANTOIN MONOHYD MACRO 100 MG CAPS 1 .bid NITROFURANTOIN MONOHYD MACRO 74554916883 No Longer Active Erica Gutierrez MD PhD Active TRI-SPRINTEC 0.18/0.215/0.25 MG-35 MCG TABS 1 po qd as directed NORGESTIM-ETH ESTRAD TRIPHASIC 38240877334 No Longer Active Erica Gutierrez MD PhD Active BACTRIM DS 800-160 MG TAB 1 tab by mouth twice daily 2 TRIMETHOPRIM-SULFAMETHOXAZOLE 55247465475 No Longer Active Erica Gutierrez MD P hD Active PX MULTIVITAMINS 28-0.8 MG TABS Take 1 tablet by mouth daily VIT-FE FUMARATE-FA 54833653612 No Longer Active Erica Gutierrez MD PhD Active PX MULTIVITAMINS 28-0.8 MG TABS Take 1 tablet by mouth daily PX MULTIVITAMINS 28-0.8 MG TABS VIT-FE FUMARATE-FA Inactive TRI-SPRINTEC 0.18/0.215/0.25 MG-35 MCG TABS 1 po qd as directed TRI-SPRINTEC 0.18/0.215/0.25 MG-35 MCG TABS 823843 NORGESTIM-ETH ESTRAD TRIPHASIC Inactive METRONIDAZOLE 250 MG TABS 1 TID METRONIDAZ OLE 250 MG TABS 336722 METRONIDAZOLE Inactive ZOFRAN ODT 4 MG TBDP 1 po q6hr PRN Nausea ZOFRAN ODT 4 MG TBDP 308252 ONDANSETRON Inactive 1 30-0.975-200 MG CAPS 1 qDay 3 1 30-0.975-200 MG CAPS MV-MIN-FE FUM-FA-DHA Inactive BENADRYL 25 MG CAP 25-50 mg po q 4-6 hours PRN BENADRYL 25 MG CAP 6119420 DIPHENHYDRAMINE HCL Inactive LORATADINE 10 MG TABS 1 tablet by mouth daily in the AM LORATADINE 10 MG TABS 311211 LORATADINE Inactive HYDROCODONE-ACETAMINOPHEN 5-325 MG TABS 1 q 4-6 hrs prn HYDROCODONE-ACETAMINOPHEN 5-325 MG TABS 505983 HYDROCODONE-ACETAMIN OPHEN Inactive NEXPLANON 68 MG IMPL replace every 3 years NEXPLA NON 68 MG IMPL ETONOGESTREL Inactive BACTRIM DS 800-160 MG TAB 1 tab by mouth twice daily 2 BACTRIM DS 800-160 MG TAB TRIMETHOPRIM-SULFAMETHOXAZOLE Inac tive NITROFURANTOIN MONOHYD MACRO 100 MG CAPS 1 .bid NITROFURANTOIN MONOHYD MACRO 100 MG CAPS 916882 NITROFURANTOIN MONO HYD MACRO Inactive ZANTAC 150 MG TAB 1 po BID ZANTAC 150 MG TAB 19 8191 RANITIDINE HCL Inactive DIFLUCAN 150 MG TAB 1 qODay x 2 doses DIFLUCAN 150 MG TAB 769496 FLUCONAZOLE Inactive ZITHROMAX 250 MG TAB 2 po today, then 1 po q days 2-5 ZITHROMAX 250 MG TAB 2073035 AZITHROMYCIN Inactive BACTRIM DS 800-160 MG TAB 1 tab by mouth twice daily 2 BACTRIM DS 800-160 MG TAB TRIMETHOPRIM-SULFAMETHOXAZOLE Inac tive PROTONIX 40 MG SOLR 1 po q a.m. PROTONIX 40 MG SOLR 938169 PANTOPRAZOLE SODIUM Inactive CLARITHROMYCIN 500 MG TABS 1 tablet by mouth twice daily CLARITHROMYCIN 500 MG TABS 782686 CLARITHROMYCIN Inactive FLAGYL 500 MG TAB 1 tablet by mouth two times daily 20 29/01/27 FLAGYL 500 MG TAB 267143 METRONIDAZOLE Inactive Immunizations Vaccine Administration Date Value [...] immunization #3 DTaP hepatitis B vaccine #2 Historical hepatitis B vaccine, unspecified formulation Hemophilus influenza B immunization #3 Historica l Haemophilus influenzae type b vaccine, conjugate unspecified formulation oral polio vaccine (OPV) #3 IPV vitaliy ovirus vaccine, unspecified formulation MMR virus immunization #1 MMR Hemophilus influenza B immunization #2 Historica l Haemophilus influenzae type b vaccine, conjugate unspecified formulation oral polio vaccine (OPV) #2 IPV vitaliy ovirus vaccine, unspecified formulation DPT immunization #2 DTaP hepatitis B vaccine #1 Historical hepatitis B vaccine, unspecified formulation oral polio vaccine [...] Value Unit Range Description Lab Report: Chlamydia/GC APTIMA/[id number] - Lab chlamydia DNA probe NOT DETECTED NOT DETECTED Lab Report: Chlamydia/GC APTIMA/[id number] - Microbiology Neisseria gonorrhoeae DNA probe NOT DETECTED NO T DETECTED Lab Report: H. Pylori, Comp. Metabolic P jared, CBC W/DIFF - Chemistry sodium, serum 139 mmol/L 547-918 7922/06/11 potassium, serum 4.2 mmol/L 3.5-5.2 chloride, serum [...] ative Encounters Code Encounter Date Provider Facility CPT-38107 Level 3 Est. Patient 17:34:39 CDT Erica del angel MD PhD [facility] CPT-23697 Level 3 Est. Patient 15:37:34 REHABILITATION PSYCHOLOGIST Gabrielle Montenegro APRN [facility] CPT-79341 Level 3 Est. Patient 11:00:48 CDT Erica del angel MD PhD [facility] CPT-02214 Level 3 Est. Patient 14:15:09 REHABILITATION PSYCHOLOGIST Jair boudreaux APRN [facility] CPT-97033 Level 4 Est. Patient 14:28:18 CDT Erica del angel MD PhD [facility] Procedures Code Procedure Name Date Entry Date Standard Desc ription CPT-OV Office Visit 15:00:46 CDT CPT-OV Office Visit 16:12:37 REHABILITATION PSYCHOLOGIST CPT-99292 Nexplanon Placement 06:24:16 CDT CPT-J7307 Nexplanon (Implant) 06:24:16 CDT CPT-OV Office Visit 06:24:16 CDT CPT-07795 [facility] (floor use only) 12:59:32 CDT CPT-OV Office Visit 10:46:11 CDT CPT-14684 Visit 14:16:15 REHABILITATION PSYCHOLOGIST CPT-02707 Visit 13:53:01 REHABILITATION PSYCHOLOGIST CPT-89116 Visit 18:31:27 REHABILITATION PSYCHOLOGIST CPT-90480 Sono OB comp > 14 weeks 17:35:57 REHABILITATION PSYCHOLOGIST 06/24 CPT-91995 Tubersol 13:49:34 REHABILITATION PSYCHOLOGIST CPT-07038 Administration single or combination vac cine inc oral 13:49:34 REHABILITATION PSYCHOLOGIST CPT-18935 TB Tubersol 13:49:34 REHABILITATION PSYCHOLOGIST CPT-78181 Visit 11:06:01 REHABILITATION PSYCHOLOGIST CPT-35983 Visit 11:47:38 CDT CPT-96518 TB Tubersol 10:44:14 CDT CPT-87410 Visit 15:16:49 CDT CPT-93401 Visit 16:33:29 CDT CPT-90425 Sono OB comp > 14 weeks 11:45:03 CDT 04/23 CPT-25359 Visit 10:03:29 CDT CPT-08506 Visit 10:35:45 CDT CPT-64518 Visit 11:10:45 CDT CPT-54000 Spec Collection and Handling Fee 14:28:18 C DT CPT-15300 Sono OB transvag <14 weeks 14:51:23 CDT 201 09/23/14 CPT-17042 Spec Collection and Handling Fee 11:21:[address] CPT-86367 Visit 11:49:17 REHABILITATION PSYCHOLOGIST CPT-62002 Visit 10:55:44 REHABILITATION PSYCHOLOGIST CPT-61699 Visit 10:28:35 REHABILITATION PSYCHOLOGIST CPT-05908 Visit 09:50:13 REHABILITATION PSYCHOLOGIST CPT-10050 Visit 22:07:15 CDT CPT-22228 Visit 09:05:22 CDT CPT-77277 Sono OB comp > 14 weeks 17:37:04 CDT 05/22 CPT-15421 Visit 10:00:01 CDT
--- OUTSIDE RECORDS SUMMARY | 2019-12-06 08:15 | XMS REPORT | Clinical Summary ---
Author Author Admin, Carmella Casarez Organization [facility] Address Unknown Phone Unavailable Allergies, Adverse [...] [age] Resolved Erica Gutierrez MD PhD 'Vradu-sqd-ebxjo' without me ntion of malnutrition, unspecified [weight] [...] 68 MG IMPL every 3 years ETONOGESTREL 73077302 001 Active Marimar Newsome MD Active FLAGYL 500 MG TAB 1 tablet by mouth two times daily 20 29/01/27 METRONIDAZOLE 10046986238 No Longer Active Erica Gutierrez MD PhD Act sirisha CLARITHROMYCIN 500 MG TABS 1 tablet by mouth twice daily CLARITHROMYCIN 74949976888 No Longer Active Erica Gutierrez MD PhD Ac tive PROTONIX 40 MG SOLR 1 po q a.m. PANTOPRAZOLE SO DIUM 65522902394 No Longer Active Erica Gutierrez MD PhD Active BACTRIM DS 800-160 MG TAB 1 tab by mouth twice daily 2 TRIMETHOPRIM-SULFAMETHOXAZOLE 60011789911 No Longer Active Erica Gutierrez MD P hD Active ZITHROMAX 250 MG TAB 2 po today, then 1 po q days 2-5 AZITHROMYCIN 75603143054 No Longer Active Gabrielle Dill APRN Acti ve NEXPLANON 68 MG IMPL replace every 3 years ETON OGESTREL 63431662980 No Longer Active Gabrielle Dill APRN Active HYDROCODONE-ACETAMINOPHEN 5-325 MG TABS 1 q 4-6 hrs prn HYDROCODONE-ACETAMINOPHEN 51951275646 No Longer Active Gabrielle Dill APRN Active DIFLUCAN 150 MG TAB 1 qODay x 2 doses FLUCONAZO LE 04110003761 No Longer Active Erica Gutierrez MD PhD Active LORATADINE 10 MG TABS 1 tablet by mouth daily in the AM LORATADINE 74608160789 No Longer Active Erica Gutierrez MD PhD Acti ve BENADRYL 25 MG CAP 25-50 mg po q 4-6 hours PRN DIPHENHYDRAMINE HCL 50162305319 No Longer Active Erica Gutierrez MD PhD Active 1 30-0.975-200 MG CAPS 1 qDay 3 MV-MIN-FE FUM-FA-DHA 70870511956 No Longer Active Jillina Frazell LICENSED PHYSICAL THERAPIST Act sirisha ZANTAC 150 MG TAB 1 po BID RANITIDINE HCL 30239 034306 No Longer Active Erica Gutierrez MD PhD Active ZOFRAN ODT 4 MG TBDP 1 po q6hr PRN Nausea ONDAN SETRON 33702321358 No Longer Active Eriac Gutierrez MD PhD Active METRONIDAZOLE 250 MG TABS 1 TID METRONIDAZOL E 27587161461 No Longer Active Erica Gutierrez MD PhD Active NITROFURANTOIN MONOHYD MACRO 100 MG CAPS 1 .bid NITROFURANTOIN MONOHYD MACRO 42961124826 No Longer Active Erica Gutierrez MD PhD Active TRI-SPRINTEC 0.18/0.215/0.25 MG-35 MCG TABS 1 po qd as directed NORGESTIM-ETH ESTRAD TRIPHASIC 79988438504 No Longer Active Erica Gutierrez MD PhD Active BACTRIM DS 800-160 MG TAB 1 tab by mouth twice daily 2 TRIMETHOPRIM-SULFAMETHOXAZOLE 97512761285 No Longer Active Erica Gutierrez MD P Active PX MULTIVITAMINS 28-0.8 MG TABS Take 1 tablet by mouth daily VIT-FE FUMARATE-FA 00193229306 No Longer Active Erica Gutierrez MD PhD Active PX MULTIVITAMINS 28-0.8 MG TABS Take 1 tablet by mouth daily PX MULTIVITAMINS 28-0.8 MG TABS VIT-FE FUMARATE-FA Inactive TRI-SPRINTEC 0.18/0.215/0.25 MG-35 MCG TABS 1 po qd as directed TRI-SPRINTEC 0.18/0.215/0.25 MG-35 MCG TABS 036556 NORGESTIM-ETH ESTRAD TRIPHASIC Inactive METRONIDAZOLE 250 MG TABS 1 TID METRONIDAZ OLE 250 MG TABS 281565 METRONIDAZOLE Inactive ZOFRAN ODT 4 MG TBDP 1 po q6hr PRN Nausea ZOFRAN ODT 4 MG TBDP 778742 ONDANSETRON Inactive 1 30-0.975-200 MG CAPS 1 qDay 3 1 30-0.975-200 MG CAPS MV-MIN-FE FUM-FA-DHA Inactive BENADRYL 25 MG CAP 25-50 mg po q 4-6 hours PRN BENADRYL 25 MG CAP 8975813 DIPHENHYDRAMINE HCL Inactive LORATADINE 10 MG TABS 1 tablet by mouth daily in the AM LORATADINE 10 MG TABS 531391 LORATADINE Inactive HYDROCODONE-ACETAMINOPHEN 5-325 MG TABS 1 q 4-6 hrs prn HYDROCODONE-ACETAMINOPHEN 5-325 MG TABS 089671 HYDROCODONE-ACETAMIN OPHEN Inactive NEXPLANON 68 MG IMPL replace every 3 years NEXPLA NON 68 MG IMPL ETONOGESTREL Inactive BACTRIM DS 800-160 MG TAB 1 tab by mouth twice daily 2 BACTRIM DS 800-160 MG TAB TRIMETHOPRIM-SULFAMETHOXAZOLE Inac tive NITROFURANTOIN MONOHYD MACRO 100 MG CAPS 1 .bid NITROFURANTOIN MONOHYD MACRO 100 MG CAPS 633042 NITROFURANTOIN MONO HYD MACRO Inactive ZANTAC 150 MG TAB 1 po BID ZANTAC 150 MG TAB 19 8191 RANITIDINE HCL Inactive DIFLUCAN 150 MG TAB 1 qODay x 2 doses DIFLUCAN 150 MG TAB 190647 FLUCONAZOLE Inactive ZITHROMAX 250 MG TAB 2 po today, then 1 po q days 2-5 ZITHROMAX 250 MG TAB 4184528 AZITHROMYCIN Inactive BACTRIM DS 800-160 MG TAB 1 tab by mouth twice daily 2 BACTRIM DS 800-160 MG TAB TRIMETHOPRIM-SULFAMETHOXAZOLE Inac tive PROTONIX 40 MG SOLR 1 po q a.m. PROTONIX 40 MG SOLR 981342 PANTOPRAZOLE SODIUM Inactive CLARITHROMYCIN 500 MG TABS 1 tablet by mouth twice daily CLARITHROMYCIN 500 MG TABS 929249 CLARITHROMYCIN Inactive FLAGYL 500 MG TAB 1 tablet by mouth two times daily 20 29/01/27 FLAGYL 500 MG TAB 428152 METRONIDAZOLE Inactive Immunizations Vaccine Administration Date Value [...] Range Description blood pressure, diastolic - 8462-4 79 mm[Hg] [...] Value Unit Range Description Lab Report: Chlamydia/GC APTIMA/79410 - Lab chlamydia DNA probe NOT DETECTED NOT DETECTED Lab Report: Chlamydia/GC APTIMA/31389 - Microbiology Neisseria gonorrhoeae DNA probe NOT DETECTED NO T DETECTED Lab Report: H. Pylori, Comp. Metabolic P jared, CBC W/DIFF - Chemistry sodium, serum 139 mmol/L 763-506 1948/06/11 potassium, serum 4.2 mmol/L 3.5-5.2 chloride, serum [...] ative Encounters Code Encounter Date Provider Facility CPT-60533 Level 3 Est. Patient 17:34:39 CDT Erica del angel MD PhD [facility] CPT-67187 Level 3 Est. Patient 15:37:34 CONE EXAMINER Gabrielle Montenegro [facility] CPT-48707 Level 3 Est. Patient 11:00:48 CDT Erica del angel MD PhD [facility] CPT-68189 Level 3 Est. Patient 14:15:09 CONE EXAMINER Jair boudreaux [facility] CPT-54083 Level 4 Est. Patient 14:28:18 CDT Erica del angel MD PhD [facility] Procedures Code Procedure Name Date Entry Date Standard Desc ription CPT-OV Office Visit 15:00:46 CDT CPT-OV Office Visit 16:12:37 CONE EXAMINER CPT-73329 Nexplanon Placement 06:24:16 CDT CPT-J7307 Nexplanon (Implant) 06:24:16 CDT CPT-OV Office Visit 06:24:16 CDT CPT-17352 [facility]CG (floor use only) 12:59:32 CDT CPT-OV Office Visit 10:46:11 CDT CPT-42531 Visit 14:16:15 CONE EXAMINER CPT-34175 Visit 13:53:01 CONE EXAMINER CPT-24599 Visit 18:31:27 CONE EXAMINER CPT-89668 Sono OB comp > 14 weeks 17:35:57 CONE EXAMINER 06/24 CPT-94817 Tubersol 13:49:34 CONE EXAMINER CPT-33721 Administration single or combination vac cine inc oral 13:49:34 CONE EXAMINER CPT-69001 TB Tubersol 13:49:34 CONE EXAMINER CPT-78026 Visit 11:06:01 CONE EXAMINER CPT-52409 Visit 11:47:38 CDT CPT-14240 TB Tubersol 10:44:14 CDT CPT-24320 Visit 15:16:49 CDT CPT-81801 Visit 16:33:29 CDT CPT-89359 Sono OB comp > 14 weeks 11:45:03 CDT 04/23 CPT-05637 Visit 10:03:29 CDT CPT-17619 Visit 10:35:45 CDT CPT-34044 Visit 11:10:45 CDT CPT-16180 Spec Collection and Handling Fee 14:28:18 C DT CPT-32142 Sono OB transvag <14 weeks 14:51:23 CDT 201 09/23/14 CPT-11246 Spec Collection and Handling Fee 11:21:[address] CPT-42393 Visit 11:49:17 CONE EXAMINER CPT-17278 Visit 10:55:44 CONE EXAMINER CPT-71833 Visit 10:28:35 CONE EXAMINER CPT-81974 Visit 09:50:13 CONE EXAMINER CPT-83832 Visit 22:07:15 CDT CPT-70730 Visit 09:05:22 CDT CPT-78282 Sono OB comp > 14 weeks 17:37:04 CDT 05/22 CPT-24092 Visit 10:00:01 CDT
--- OUTSIDE RECORDS SUMMARY | 2019-12-06 08:15 | XMS REPORT | Clinical Summary ---
Author Author Admin, Carmella Casarez Organization [facility] Address Unknown Phone Unavailable Allergies, Adverse Reactions, [...] [age] Resolved Erica Gutierrez MD PhD 'Zopur-zti-vpanl' without me ntion of malnutrition, unspecified [weight] [...] 68 MG IMPL every 3 years ETONOGESTREL 25966098 001 Active Marimar Newsome MD Active FLAGYL 500 MG TAB 1 tablet by mouth two times daily 20 29/01/27 METRONIDAZOLE 64737547188 No Longer Active Erica Gutierrez MD PhD Act sirisha CLARITHROMYCIN 500 MG TABS 1 tablet by mouth twice daily CLARITHROMYCIN 29426337229 No Longer Active Erica Gutierrez MD PhD Ac tive PROTONIX 40 MG SOLR 1 po q a.m. PANTOPRAZOLE SO DIUM 11726314025 No Longer Active Erica Gutierrez MD PhD Active BACTRIM DS 800-160 MG TAB 1 tab by mouth twice daily 2 TRIMETHOPRIM-SULFAMETHOXAZOLE 81742617002 No Longer Active Erica Gutierrez MD P hD Active ZITHROMAX 250 MG TAB 2 po today, then 1 po q days 2-5 AZITHROMYCIN 22864942021 No Longer Active Gabrielle Dill APRN Acti ve NEXPLANON 68 MG IMPL replace every 3 years ETON OGESTREL 94475480605 No Longer Active Gabrielle Dill APRN Active HYDROCODONE-ACETAMINOPHEN 5-325 MG TABS 1 q 4-6 hrs prn HYDROCODONE-ACETAMINOPHEN 62685424674 No Longer Active Gabrielle Dill APRN Active DIFLUCAN 150 MG TAB 1 qODay x 2 doses FLUCONAZO LE 38557114300 No Longer Active Erica Gutierrez MD PhD Active LORATADINE 10 MG TABS 1 tablet by mouth daily in the AM LORATADINE 18614729829 No Longer Active Erica Gutierrez MD PhD Acti ve BENADRYL 25 MG CAP 25-50 mg po q 4-6 hours PRN DIPHENHYDRAMINE HCL 86605086855 No Longer Active Erica Gutierrez MD PhD Active 1 30-0.975-200 MG CAPS 1 qDay 3 MV-MIN-FE FUM-FA-DHA 80861135265 No Longer Active Jillina Frazell LATRINE CLEANER Act sirisha ZANTAC 150 MG TAB 1 po BID RANITIDINE HCL 45633 151539 No Longer Active Erica Gutierrez MD PhD Active ZOFRAN ODT 4 MG TBDP 1 po q6hr PRN Nausea ONDAN SETRON 09570141023 No Longer Active Erica Gutierrez MD PhD Active METRONIDAZOLE 250 MG TABS 1 TID METRONIDAZOL E 21156537389 No Longer Active Erica Gutierrez MD PhD Active NITROFURANTOIN MONOHYD MACRO 100 MG CAPS 1 .bid NITROFURANTOIN MONOHYD MACRO 50295824137 No Longer Active Erica Gutierrez MD PhD Active TRI-SPRINTEC 0.18/0.215/0.25 MG-35 MCG TABS 1 po qd as directed NORGESTIM-ETH ESTRAD TRIPHASIC 64508359035 No Longer Active Erica Gutierrez MD PhD Active BACTRIM DS 800-160 MG TAB 1 tab by mouth twice daily 2 TRIMETHOPRIM-SULFAMETHOXAZOLE 17949794846 No Longer Active Erica Gutierrez MD P Active PX MULTIVITAMINS 28-0.8 MG TABS Take 1 tablet by mouth daily VIT-FE FUMARATE-FA 84671950983 No Longer Active Erica Gutierrez MD PhD Active PX MULTIVITAMINS 28-0.8 MG TABS Take 1 tablet by mouth daily PX MULTIVITAMINS 28-0.8 MG TABS VIT-FE FUMARATE-FA Inactive TRI-SPRINTEC 0.18/0.215/0.25 MG-35 MCG TABS 1 po qd as directed TRI-SPRINTEC 0.18/0.215/0.25 MG-35 MCG TABS 836140 NORGESTIM-ETH ESTRAD TRIPHASIC Inactive METRONIDAZOLE 250 MG TABS 1 TID METRONIDAZ OLE 250 MG TABS 078545 METRONIDAZOLE Inactive ZOFRAN ODT 4 MG TBDP 1 po q6hr PRN Nausea ZOFRAN ODT 4 MG TBDP 197546 ONDANSETRON Inactive 1 30-0.975-200 MG CAPS 1 qDay 3 1 30-0.975-200 MG CAPS MV-MIN-FE FUM-FA-DHA Inactive BENADRYL 25 MG CAP 25-50 mg po q 4-6 hours PRN BENADRYL 25 MG CAP 8448931 DIPHENHYDRAMINE HCL Inactive LORATADINE 10 MG TABS 1 tablet by mouth daily in the AM LORATADINE 10 MG TABS 814974 LORATADINE Inactive HYDROCODONE-ACETAMINOPHEN 5-325 MG TABS 1 q 4-6 hrs prn HYDROCODONE-ACETAMINOPHEN 5-325 MG TABS 127904 HYDROCODONE-ACETAMIN OPHEN Inactive NEXPLANON 68 MG IMPL replace every 3 years NEXPLA NON 68 MG IMPL ETONOGESTREL Inactive BACTRIM DS 800-160 MG TAB 1 tab by mouth twice daily 2 BACTRIM DS 800-160 MG TAB TRIMETHOPRIM-SULFAMETHOXAZOLE Inac tive NITROFURANTOIN MONOHYD MACRO 100 MG CAPS 1 .bid NITROFURANTOIN MONOHYD MACRO 100 MG CAPS 604953 NITROFURANTOIN MONO HYD MACRO Inactive ZANTAC 150 MG TAB 1 po BID ZANTAC 150 MG TAB 19 8191 RANITIDINE HCL Inactive DIFLUCAN 150 MG TAB 1 qODay x 2 doses DIFLUCAN 150 MG TAB 084477 FLUCONAZOLE Inactive ZITHROMAX 250 MG TAB 2 po today, then 1 po q days 2-5 ZITHROMAX 250 MG TAB 0997740 AZITHROMYCIN Inactive BACTRIM DS 800-160 MG TAB 1 tab by mouth twice daily 2 BACTRIM DS 800-160 MG TAB TRIMETHOPRIM-SULFAMETHOXAZOLE Inac tive PROTONIX 40 MG SOLR 1 po q a.m. PROTONIX 40 MG SOLR 178868 PANTOPRAZOLE SODIUM Inactive CLARITHROMYCIN 500 MG TABS 1 tablet by mouth twice daily CLARITHROMYCIN 500 MG TABS 574567 CLARITHROMYCIN Inactive FLAGYL 500 MG TAB 1 tablet by mouth two times daily 20 29/01/27 FLAGYL 500 MG TAB 201571 METRONIDAZOLE Inactive Immunizations Vaccine Administration Date Value [...] Name Value Unit Range Description Lab Report: H. Pylori, Comp. Metabolic P jared, CBC W/DIFF - Chemistry sodium, serum 139 mmol/L 402-613 7545/06/11 potassium, serum 4.2 mmol/L 3.5-5.2 chloride, serum [...] 1.025 1.000-1.030 pH, urine, semiquantitative 6.0 5.0-8.5 Encounters Code Encounter Date Provider Facility CPT-04412 Level 3 Est. Patient 17:34:39 CDT Erica del angel MD PhD [facility] CPT-05878 Level 3 Est. Patient 15:37:34 DIESEL ENGINE FITTER Gabrielle Montenegro [facility] CPT-19699 Level 3 Est. Patient 11:00:48 CDT Erica del angel MD PhD [facility] CPT-19590 Level 3 Est. Patient 14:15:09 DIESEL ENGINE FITTER Jair boudreaux [facility] CPT-67722 Level 4 Est. Patient 14:28:18 CDT Erica del angel MD PhD [facility] Procedures Code Procedure Name Date Entry Date Standard Desc ription CPT-OV Office Visit 15:00:46 CDT CPT-OV Office Visit 16:12:37 DIESEL ENGINE FITTER CPT-05759 Nexplanon Placement 06:24:16 CDT CPT-J7307 Nexplanon (Implant) 06:24:16 CDT CPT-OV Office Visit 06:24:16 CDT CPT-26136 [facility]CG (floor use only) 12:59:32 CDT CPT-OV Office Visit 10:46:11 CDT CPT-83044 Visit 14:16:15 DIESEL ENGINE FITTER CPT-58595 Visit 13:53:01 DIESEL ENGINE FITTER CPT-93216 Visit 18:31:27 DIESEL ENGINE FITTER CPT-84338 Sono OB comp > 14 weeks 17:35:57 DIESEL ENGINE FITTER 06/24 CPT-21297 Tubersol 13:49:34 DIESEL ENGINE FITTER CPT-44180 Administration single or combination vac cine inc oral 13:49:34 DIESEL ENGINE FITTER CPT-48286 TB Tubersol 13:49:34 DIESEL ENGINE FITTER CPT-87802 Visit 11:06:01 DIESEL ENGINE FITTER CPT-74996 Visit 11:47:38 CDT CPT-51807 TB Tubersol 10:44:14 CDT CPT-90208 Visit 15:16:49 CDT CPT-56143 Visit 16:33:29 CDT CPT-93755 Sono OB comp > 14 weeks 11:45:03 CDT 04/23 CPT-49878 Visit 10:03:29 CDT CPT-76656 Visit 10:35:45 CDT CPT-91007 Visit 11:10:45 CDT CPT-67137 Spec Collection and Handling Fee 14:28:18 C DT CPT-02945 Sono OB transvag <14 weeks 14:51:23 CDT 201 09/23/14 CPT-71699 Spec Collection and Handling Fee 11:21:[address] CPT-08494 Visit 11:49:17 DIESEL ENGINE FITTER CPT-72935 Visit 10:55:44 DIESEL ENGINE FITTER CPT-27038 Visit 10:28:35 DIESEL ENGINE FITTER CPT-14398 Visit 09:50:13 DIESEL ENGINE FITTER CPT-93796 Visit 22:07:15 CDT CPT-20036 Visit 09:05:22 CDT CPT-42785 Sono OB comp > 14 weeks 17:37:04 CDT 05/22 CPT-08122 Visit 10:00:01 CDT
--- OUTSIDE RECORDS SUMMARY | 2019-12-06 08:15 | XMS REPORT | Clinical Summary ---
Author Author Rosa, Carmella Casarez Organization [facility] Address Unknown Phone Unavailable Allergies, Adverse [...] [age] Resolved Erica Gutierrez MD PhD 'Dgfnz-wxh-upuhx' without me ntion of malnutrition, unspecified [weight] [...] Dysmenorrhea Amenorrhea, secondary 626.0 Active Jair burnham QUEBRACHO TANNER Absence of menstruation ICD-V22.2 Inactive Erica Gutierrez [...] Instructions Start Date Stop Date Generic Name [facility] Status Provider Patient Instruction SPRINTEC 28 0.25-35 MG-MCG TABS one tab PO daily 09/05 NORGESTIMATE-ETH ESTRADIOL 18722757183 No Longer Active Jair Paez APRN Active NEXPLANON 68 MG IMPL every 3 years ETONOGESTREL 0 1840541820 No Longer Active Jair Paez APRN Active BACTRIM DS 800-160 MG TABS 1 pill by mouth twice daily, for UTI SULFAMETHOXAZOLE-TRIMETHOPRIM 46916634685 No Longer Active Corina Gutierrez MD PhD Active PREVPAC MISC take as directed, twice daily IAHPOOYFA-JZFWGINPA-ERXOTABJY 54231235437 No Longer Active Erica Gutierrez MD P hD Active FLAGYL 500 MG TAB 1 tablet by mouth two times daily 20 29/01/27 METRONIDAZOLE 16176516603 No Longer Active Erica Gutierrez MD PhD Act sirisha CLARITHROMYCIN 500 MG TABS 1 tablet by mouth twice daily CLARITHROMYCIN 96120702171 No Longer Active Erica Gutierrez MD PhD Ac tive PROTONIX 40 MG SOLR 1 po q a.m. PANTOPRAZOLE SO DIUM 53122157908 No Longer Active Erica Gutierrez MD PhD Active BACTRIM DS 800-160 MG TAB 1 tab by mouth twice daily 2 TRIMETHOPRIM-SULFAMETHOXAZOLE 19596458718 No Longer Active Erica Gutierrez MD P hD Active ZITHROMAX 250 MG TAB 2 po today, then 1 po q days 2-5 AZITHROMYCIN 63413886498 No Longer Active Gabrielle Dill APRN Acti ve NEXPLANON 68 MG IMPL replace every 3 years ETON OGESTREL 69227009921 No Longer Active Gabrielle Dill APRN Active HYDROCODONE-ACETAMINOPHEN 5-325 MG TABS 1 q 4-6 hrs prn HYDROCODONE-ACETAMINOPHEN 68106810462 No Longer Active Gabrielle Fuentes QUEBRACHO TANNER Active DIFLUCAN 150 MG TAB 1 qODay x 2 doses FLUCONAZO LE 09195094845 No Longer Active Erica Gutierrez MD PhD Active LORATADINE 10 MG TABS 1 tablet by mouth daily in the AM LORATADINE 23455771415 No Longer Active Erica Gutierrez MD PhD Acti ve BENADRYL 25 MG CAP 25-50 mg po q 4-6 hours PRN DIPHENHYDRAMINE HCL 91912777836 No Longer Active Erica Gutierrez MD PhD Active 1 30-0.975-200 MG CAPS 1 qDay 3 MV-MIN-FE FUM-FA-DHA 18923640380 No Longer Active Jair Paez QUEBRACHO TANNER Act sirisha ZANTAC 150 MG TAB 1 po BID RANITIDINE HCL 76544 246151 No Longer Active Erica Gutierrez MD PhD Active ZOFRAN ODT 4 MG TBDP 1 po q6hr PRN Nausea ONDAN SETRON 10103507320 No Longer Active Erica Gutierrez MD PhD Active METRONIDAZOLE 250 MG TABS 1 TID METRONIDAZOL E 16401571265 No Longer Active Erica Gutierrez MD PhD Active NITROFURANTOIN MONOHYD MACRO 100 MG CAPS 1 .bid NITROFURANTOIN MONOHYD MACRO 11570358503 No Longer Active Erica Gutierrez MD PhD Active TRI-SPRINTEC 0.18/0.215/0.25 MG-35 MCG TABS 1 po qd as directed NORGESTIM-ETH ESTRAD TRIPHASIC 16266947292 No Longer Active Erica Gutierrez MD PhD Active BACTRIM DS 800-160 MG TAB 1 tab by mouth twice daily 2 TRIMETHOPRIM-SULFAMETHOXAZOLE 20701558060 No Longer Active Erica Gutierrez MD P hD Active PX MULTIVITAMINS 28-0.8 MG TABS Take 1 tablet by mouth daily VIT-FE FUMARATE-FA 13065870390 No Longer Active Erica Gutierrez MD PhD Active PX MULTIVITAMINS 28-0.8 MG TABS Take 1 tablet by mouth daily PX MULTIVITAMINS 28-0.8 MG TABS VIT-FE FUMARATE-FA Inactive TRI-SPRINTEC 0.18/0.215/0.25 MG-35 MCG TABS 1 po qd as directed TRI-SPRINTEC 0.18/0.215/0.25 MG-35 MCG TABS 300637 NORGESTIM-ETH ESTRAD TRIPHASIC Inactive METRONIDAZOLE 250 MG TABS 1 TID METRONIDAZ OLE 250 MG TABS 967607 METRONIDAZOLE Inactive ZOFRAN ODT 4 MG TBDP 1 po q6hr PRN Nausea ZOFRAN ODT 4 MG TBDP 645701 ONDANSETRON Inactive 1 30-0.975-200 MG CAPS 1 qDay 3 1 30-0.975-200 MG CAPS MV-MIN-FE FUM-FA-DHA Inactive BENADRYL 25 MG CAP 25-50 mg po q 4-6 hours PRN BENADRYL 25 MG CAP 8185504 DIPHENHYDRAMINE HCL Inactive LORATADINE 10 MG TABS 1 tablet by mouth daily in the AM LORATADINE 10 MG TABS 064854 LORATADINE Inactive HYDROCODONE-ACETAMINOPHEN 5-325 MG TABS 1 q 4-6 hrs prn HYDROCODONE-ACETAMINOPHEN 5-325 MG TABS 533213 HYDROCODONE-ACETAMIN OPHEN Inactive NEXPLANON 68 MG IMPL replace every 3 years NEXPLA NON 68 MG IMPL ETONOGESTREL Inactive NEXPLANON 68 MG IMPL every 3 years NEXPLANON 68 M G IMPL ETONOGESTREL Inactive SPRINTEC 28 0.25-35 MG-MCG TABS one tab PO daily 09/05 SPRINTEC 28 0.25-35 MG-MCG TABS 709994 NORGESTIMATE-ETH ESTRADIOL Inactive BACTRIM DS 800-160 MG TAB 1 tab by mouth twice daily 2 BACTRIM DS 800-160 MG TAB TRIMETHOPRIM-SULFAMETHOXAZOLE Inac tive NITROFURANTOIN MONOHYD MACRO 100 MG CAPS 1 .bid NITROFURANTOIN MONOHYD MACRO 100 MG CAPS 609196 NITROFURANTOIN MONO HYD MACRO Inactive ZANTAC 150 MG TAB 1 po BID ZANTAC 150 MG TAB 19 8191 RANITIDINE HCL Inactive DIFLUCAN 150 MG TAB 1 qODay x 2 doses DIFLUCAN 150 MG TAB 293590 FLUCONAZOLE Inactive ZITHROMAX 250 MG TAB 2 po today, then 1 po q days 2-5 ZITHROMAX 250 MG TAB 4760438 AZITHROMYCIN Inactive BACTRIM DS 800-160 MG TAB 1 tab by mouth twice daily 2 BACTRIM DS 800-160 MG TAB TRIMETHOPRIM-SULFAMETHOXAZOLE Inac tive PROTONIX 40 MG SOLR 1 po q a.m. PROTONIX 40 MG SOLR 001939 PANTOPRAZOLE SODIUM Inactive CLARITHROMYCIN 500 MG TABS 1 tablet by mouth twice daily CLARITHROMYCIN 500 MG TABS 093246 CLARITHROMYCIN Inactive FLAGYL 500 MG TAB 1 tablet by mouth two times daily 20 29/01/27 FLAGYL 500 MG TAB 418997 METRONIDAZOLE Inactive PREVPAC MISC take as directed, twice daily PREV PAC MISC 173333 [id number]-[id number] Inactive BACTRIM DS 800-160 MG TABS 1 pill by mouth twice daily, for UTI BACTRIM DS 800-160 MG TABS SULFAMETHOXAZOLE-TRIM ETHOPRIM Inactive Immunizations Vaccine Administration Date Value Standard Rpitesh cription TB-PPD (tuberculin purified protein derivative), intra [...] Range Description blood pressure, diastolic - 8462-4 72 mm[Hg] [...] - 3141-9 166.50 [lb_av] Weigh t Measured Diagnostic Results Date Name Value Unit Range Description Lab Report: Chlamydia/GC APTIMA/28610 - Lab chlamydia DNA probe NOT DETECTED NOT DETECTED Lab Report: Chlamydia/GC APTIMA/91122 - Microbiology Neisseria gonorrhoeae DNA probe NOT DETECTED NO T DETECTED Lab Report: H. Pylori, Comp. Metabolic P jared, CBC W/DIFF - Chemistry sodium, serum 139 mmol/L 853-062 5382/06/11 potassium, serum 4.2 mmol/L 3.5-5.2 chloride, serum [...] 5.0-8.5 Encounters Code Encounter Date Provider Facility CPT-87319 Level 3 Est. Patient 17:34:39 CDT Erica del angel MD PhD [facility] CPT-32420 Level 3 Est. Patient 15:37:34 MUSIC EDUCATOR Gabrielle Montenegro [facility] CPT-79945 Level 3 Est. Patient 11:00:48 CDT Erica del angel MD PhD [facility] CPT-68786 Level 3 Est. Patient 14:15:09 MUSIC EDUCATOR Mannyty Yareli janusz [facility] CPT-20152 Level 4 Est. Patient 14:28:18 CDT Erica del angel MD PhD [facility] Procedures Code Procedure Name Date Entry Date Standard Desc ription CPT-39744 Nexplanon Removal 10:29:42 MUSIC EDUCATOR CPT-OV Office Visit 10:29:42 MUSIC EDUCATOR CPT-OV Office Visit 15:00:46 CDT CPT-OV Office Visit 16:12:37 MUSIC EDUCATOR CPT-37314 Nexplanon Placement 06:24:16 CDT CPT-J7307 Nexplanon (Implant) 06:24:16 CDT CPT-OV Office Visit 06:24:16 CDT CPT-96851 [facility]CG (floor use only) 12:59:32 CDT CPT-OV Office Visit 10:46:11 CDT CPT-22279 Visit 14:16:15 MUSIC EDUCATOR CPT-44878 Visit 13:53:01 MUSIC EDUCATOR CPT-99713 Visit 18:31:27 MUSIC EDUCATOR CPT-83741 Sono OB comp > 14 weeks 17:35:57 MUSIC EDUCATOR 06/24 CPT-22947 Tubersol 13:49:34 MUSIC EDUCATOR CPT-06922 Administration single or combination vac cine inc oral 13:49:34 MUSIC EDUCATOR CPT-08380 TB Tubersol 13:49:34 MUSIC EDUCATOR CPT-79031 Visit 11:06:01 MUSIC EDUCATOR CPT-18754 Visit 11:47:38 CDT CPT-87189 TB Tubersol 10:44:14 CDT CPT-22312 Visit 15:16:49 CDT CPT-21613 Visit 16:33:29 CDT CPT-30295 Sono OB comp > 14 weeks 11:45:03 CDT 04/23 CPT-75292 Visit 10:03:29 CDT CPT-66684 Visit 10:35:45 CDT CPT-29579 Visit 11:10:45 CDT CPT-65090 Spec Collection and Handling Fee 14:28:18 C DT CPT-29916 Sono OB transvag <14 weeks 14:51:23 CDT 201 09/23/14 CPT-35445 Spec Collection and Handling Fee 11:21:[address] CPT-86526 Visit 11:49:17 MUSIC EDUCATOR CPT-28727 Visit 10:55:44 MUSIC EDUCATOR CPT-92406 Visit 10:28:35 MUSIC EDUCATOR CPT-63306 Visit 09:50:13 MUSIC EDUCATOR CPT-78873 Visit 22:07:15 CDT CPT-28716 Visit 09:05:22 CDT CPT-27918 Sono OB comp > 14 weeks 17:37:04 CDT 05/22 CPT-70145 Visit 10:00:01 CDT
--- OUTSIDE RECORDS SUMMARY | 2019-12-06 08:16 | XMS REPORT | Clinical Summary ---
Author Author Admin, Carmella Casarez Organization [facility] Address Unknown Phone Unavailable Allergies, Adverse [...] [age] Resolved Erica Gutierrez MD PhD 'Dowsn-yfz-rgbqn' without me ntion of malnutrition, unspecified [weight] [...] 68 MG IMPL every 3 years ETONOGESTREL 82121665 001 Active Marimar Newsome MD Active FLAGYL 500 MG TAB 1 tablet by mouth two times daily 20 29/01/27 METRONIDAZOLE 34865317082 No Longer Active Erica Gutierrez MD PhD Act sirisha CLARITHROMYCIN 500 MG TABS 1 tablet by mouth twice daily CLARITHROMYCIN 70772141768 No Longer Active Erica Gutierrez MD PhD Ac tive PROTONIX 40 MG SOLR 1 po q a.m. PANTOPRAZOLE SO DIUM 71640838006 No Longer Active Erica Gutierrez MD PhD Active BACTRIM DS 800-160 MG TAB 1 tab by mouth twice daily 2 TRIMETHOPRIM-SULFAMETHOXAZOLE 17736381849 No Longer Active Erica Gutierrez MD P hD Active ZITHROMAX 250 MG TAB 2 po today, then 1 po q days 2-5 AZITHROMYCIN 18297933608 No Longer Active Gabrielle Dill APRN Acti ve NEXPLANON 68 MG IMPL replace every 3 years ETON OGESTREL 15827790634 No Longer Active Gabrielle Dill APRN Active HYDROCODONE-ACETAMINOPHEN 5-325 MG TABS 1 q 4-6 hrs prn HYDROCODONE-ACETAMINOPHEN 23538972557 No Longer Active Gabrielle Dill APRN Active DIFLUCAN 150 MG TAB 1 qODay x 2 doses FLUCONAZO LE 90848243509 No Longer Active Erica Gutierrez MD PhD Active LORATADINE 10 MG TABS 1 tablet by mouth daily in the AM LORATADINE 74846003564 No Longer Active Erica Gutierrez MD PhD Acti ve BENADRYL 25 MG CAP 25-50 mg po q 4-6 hours PRN DIPHENHYDRAMINE HCL 25330237988 No Longer Active Erica Gutierrez MD PhD Active 1 30-0.975-200 MG CAPS 1 qDay 3 MV-MIN-FE FUM-FA-DHA 38319005520 No Longer Active Jillina Frazell [employer] Act sirisha ZANTAC 150 MG TAB 1 po BID RANITIDINE HCL 04252 050503 No Longer Active Erica Gutierrez MD PhD Active ZOFRAN ODT 4 MG TBDP 1 po q6hr PRN Nausea ONDAN SETRON 02006046233 No Longer Active Erica Gutierrez MD PhD Active METRONIDAZOLE 250 MG TABS 1 TID METRONIDAZOL E 47553611910 No Longer Active Erica Gutierrez MD PhD Active NITROFURANTOIN MONOHYD MACRO 100 MG CAPS 1 .bid NITROFURANTOIN MONOHYD MACRO 98017710430 No Longer Active Erica Gutierrez MD PhD Active TRI-SPRINTEC 0.18/0.215/0.25 MG-35 MCG TABS 1 po qd as directed NORGESTIM-ETH ESTRAD TRIPHASIC 38965361764 No Longer Active Erica Gutierrez MD PhD Active BACTRIM DS 800-160 MG TAB 1 tab by mouth twice daily 2 TRIMETHOPRIM-SULFAMETHOXAZOLE 66710345953 No Longer Active Erica Gutierrez MD P Active PX MULTIVITAMINS 28-0.8 MG TABS Take 1 tablet by mouth daily VIT-FE FUMARATE-FA 00937179594 No Longer Active Erica Gutierrez MD PhD Active PX MULTIVITAMINS 28-0.8 MG TABS Take 1 tablet by mouth daily PX MULTIVITAMINS 28-0.8 MG TABS VIT-FE FUMARATE-FA Inactive TRI-SPRINTEC 0.18/0.215/0.25 MG-35 MCG TABS 1 po qd as directed TRI-SPRINTEC 0.18/0.215/0.25 MG-35 MCG TABS 091868 NORGESTIM-ETH ESTRAD TRIPHASIC Inactive METRONIDAZOLE 250 MG TABS 1 TID METRONIDAZ OLE 250 MG TABS 890943 METRONIDAZOLE Inactive ZOFRAN ODT 4 MG TBDP 1 po q6hr PRN Nausea ZOFRAN ODT 4 MG TBDP 139786 ONDANSETRON Inactive 1 30-0.975-200 MG CAPS 1 qDay 3 1 30-0.975-200 MG CAPS MV-MIN-FE FUM-FA-DHA Inactive BENADRYL 25 MG CAP 25-50 mg po q 4-6 hours PRN BENADRYL 25 MG CAP 1194377 DIPHENHYDRAMINE HCL Inactive LORATADINE 10 MG TABS 1 tablet by mouth daily in the AM LORATADINE 10 MG TABS 692512 LORATADINE Inactive HYDROCODONE-ACETAMINOPHEN 5-325 MG TABS 1 q 4-6 hrs prn HYDROCODONE-ACETAMINOPHEN 5-325 MG TABS 272656 HYDROCODONE-ACETAMIN OPHEN Inactive NEXPLANON 68 MG IMPL replace every 3 years NEXPLA NON 68 MG IMPL ETONOGESTREL Inactive BACTRIM DS 800-160 MG TAB 1 tab by mouth twice daily 2 BACTRIM DS 800-160 MG TAB TRIMETHOPRIM-SULFAMETHOXAZOLE Inac tive NITROFURANTOIN MONOHYD MACRO 100 MG CAPS 1 .bid NITROFURANTOIN MONOHYD MACRO 100 MG CAPS 867969 NITROFURANTOIN MONO HYD MACRO Inactive ZANTAC 150 MG TAB 1 po BID ZANTAC 150 MG TAB 19 8191 RANITIDINE HCL Inactive DIFLUCAN 150 MG TAB 1 qODay x 2 doses DIFLUCAN 150 MG TAB 229417 FLUCONAZOLE Inactive ZITHROMAX 250 MG TAB 2 po today, then 1 po q days 2-5 ZITHROMAX 250 MG TAB 1381961 AZITHROMYCIN Inactive BACTRIM DS 800-160 MG TAB 1 tab by mouth twice daily 2 BACTRIM DS 800-160 MG TAB TRIMETHOPRIM-SULFAMETHOXAZOLE Inac tive PROTONIX 40 MG SOLR 1 po q a.m. PROTONIX 40 MG SOLR 382642 PANTOPRAZOLE SODIUM Inactive CLARITHROMYCIN 500 MG TABS 1 tablet by mouth twice daily CLARITHROMYCIN 500 MG TABS 566238 CLARITHROMYCIN Inactive FLAGYL 500 MG TAB 1 tablet by mouth two times daily 20 29/01/27 FLAGYL 500 MG TAB 661215 METRONIDAZOLE Inactive Immunizations Vaccine Administration Date Value [...] Value Unit Range Description Lab Report: Chlamydia/GC APTIMA/96926 - Lab chlamydia DNA probe NOT DETECTED NOT DETECTED Lab Report: Chlamydia/GC APTIMA/15086 - Microbiology Neisseria gonorrhoeae DNA probe NOT DETECTED NO T DETECTED Lab Report: H. Pylori, Comp. Metabolic P jared, CBC W/DIFF - Chemistry sodium, serum 139 mmol/L 121-066 9296/06/11 potassium, serum 4.2 mmol/L 3.5-5.2 chloride, serum [...] ative Encounters Code Encounter Date Provider Facility CPT-94403 Level 3 Est. Patient 17:34:39 CDT Erica del angel MD PhD [facility] CPT-09188 Level 3 Est. Patient 15:37:34 LOAN OFFICER Gabrielle Montenegro [facility] CPT-74268 Level 3 Est. Patient 11:00:48 CDT Erica del angel MD PhD [facility] CPT-02291 Level 3 Est. Patient 14:15:09 LOAN OFFICER Jair boudreaux [facility] CPT-48322 Level 4 Est. Patient 14:28:18 CDT Erica del angel MD PhD [facility] Procedures Code Procedure Name Date Entry Date Standard Desc ription CPT-OV Office Visit 15:00:46 CDT CPT-OV Office Visit 16:12:37 LOAN OFFICER CPT-51777 Nexplanon Placement 06:24:16 CDT CPT-J7307 Nexplanon (Implant) 06:24:16 CDT CPT-OV Office Visit 06:24:16 CDT CPT-63982 [facility]CG (floor use only) 12:59:32 CDT CPT-OV Office Visit 10:46:11 CDT CPT-27748 Visit 14:16:15 LOAN OFFICER CPT-11056 Visit 13:53:01 LOAN OFFICER CPT-55065 Visit 18:31:27 LOAN OFFICER CPT-06986 Sono OB comp > 14 weeks 17:35:57 LOAN OFFICER 06/24 CPT-03666 Tubersol 13:49:34 LOAN OFFICER CPT-83554 Administration single or combination vac cine inc oral 13:49:34 LOAN OFFICER CPT-91745 TB Tubersol 13:49:34 LOAN OFFICER CPT-06017 Visit 11:06:01 LOAN OFFICER CPT-58991 Visit 11:47:38 CDT CPT-96508 TB Tubersol 10:44:14 CDT CPT-32202 Visit 15:16:49 CDT CPT-71156 Visit 16:33:29 CDT CPT-69208 Sono OB comp > 14 weeks 11:45:03 CDT 04/23 CPT-40933 Visit 10:03:29 CDT CPT-77409 Visit 10:35:45 CDT CPT-06583 Visit 11:10:45 CDT CPT-05716 Spec Collection and Handling Fee 14:28:18 C DT CPT-42133 Sono OB transvag <14 weeks 14:51:23 CDT 201 09/23/14 CPT-40053 Spec Collection and Handling Fee 11:21:[address] CPT-66311 Visit 11:49:17 LOAN OFFICER CPT-83409 Visit 10:55:44 LOAN OFFICER CPT-51186 Visit 10:28:35 LOAN OFFICER CPT-86899 Visit 09:50:13 LOAN OFFICER CPT-85463 Visit 22:07:15 CDT CPT-79369 Visit 09:05:22 CDT CPT-95207 Sono OB comp > 14 weeks 17:37:04 CDT 05/22 CPT-29542 Visit 10:00:01 CDT
--- OUTSIDE RECORDS SUMMARY | 2019-12-06 08:16 | XMS REPORT | Clinical Summary ---
Author Author Admin, Carmella Casarez Organization [facility] Address Unknown Phone Unavailable Allergies, Adverse Reactions, [...] [age] Resolved Erica Gutierrez MD PhD 'Hjlih-ziz-vdffk' without me ntion of malnutrition, unspecified [weight] [...] Generic Name NDC Status Provider Patient Instruction SPRINTEC 28 0.25-35 MG-MCG TABS one tab PO daily NORGESTIMATE-ETH ESTRADIOL 37380187321 Active Marimar Newsome MD Active BACTRIM DS 800-160 MG TABS 1 pill by mouth twice daily, for UTI SULFAMETHOXAZOLE-TRIMETHOPRIM 62594903076 No Longer Active A uyen Gutierrez MD PhD Active PREVPAC MISC take as directed, twice daily KYBBVJOLP-CPJJFQKYI-FGVPMCFLH 97240441921 No Longer Active Erica Gutierrez MD P hD Active NEXPLANON 68 MG IMPL every 3 years ETONOGESTREL 70325729 001 Active Marimar Newsome MD Active FLAGYL 500 MG TAB 1 tablet by mouth two times daily 20 29/01/27 METRONIDAZOLE 66347042412 No Longer Active Erica Gutierrez MD PhD Act sirisha CLARITHROMYCIN 500 MG TABS 1 tablet by mouth twice daily CLARITHROMYCIN 99076286722 No Longer Active Erica Gutierrez MD PhD Ac tive PROTONIX 40 MG SOLR 1 po q a.m. PANTOPRAZOLE SO DIUM 81393990743 No Longer Active Erica Gutierrez MD PhD Active BACTRIM DS 800-160 MG TAB 1 tab by mouth twice daily 2 TRIMETHOPRIM-SULFAMETHOXAZOLE 66079151967 No Longer Active Erica Gutierrez MD P hD Active ZITHROMAX 250 MG TAB 2 po today, then 1 po q days 2-5 AZITHROMYCIN 12444487374 No Longer Active Gabrielle Dill APRN Acti ve NEXPLANON 68 MG IMPL replace every 3 years ETON OGESTREL 06126007999 No Longer Active Gabrielle Dill APRN Active HYDROCODONE-ACETAMINOPHEN 5-325 MG TABS 1 q 4-6 hrs prn HYDROCODONE-ACETAMINOPHEN 65744890593 No Longer Active Gabrielle Dill APRN Active DIFLUCAN 150 MG TAB 1 qODay x 2 doses FLUCONAZO LE 66921498939 No Longer Active Erica Gutierrez MD PhD Active LORATADINE 10 MG TABS 1 tablet by mouth daily in the AM LORATADINE 95874262200 No Longer Active Erica Gutierrez MD PhD Acti ve BENADRYL 25 MG CAP 25-50 mg po q 4-6 hours PRN DIPHENHYDRAMINE HCL 59947538964 No Longer Active Erica Gutierrez MD PhD Active 1 30-0.975-200 MG CAPS 1 qDay 3 MV-MIN-FE FUM-FA-DHA 96446553688 No Longer Active 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 Act sirisha ZANTAC 150 MG TAB 1 po BID RANITIDINE HCL 35930 502253 No Longer Active Erica Gutierrez MD PhD Active ZOFRAN ODT 4 MG TBDP 1 po q6hr PRN Nausea ONDAN SETRON 30034948816 No Longer Active Erica Gutierrez MD PhD Active METRONIDAZOLE 250 MG TABS 1 TID METRONIDAZOL E 82114066181 No Longer Active Erica Gutierrez MD PhD Active NITROFURANTOIN MONOHYD MACRO 100 MG CAPS 1 .bid NITROFURANTOIN MONOHYD MACRO 23880346439 No Longer Active Erica Gutierrez MD PhD Active TRI-SPRINTEC 0.18/0.215/0.25 MG-35 MCG TABS 1 po qd as directed NORGESTIM-ETH ESTRAD TRIPHASIC 59495935985 No Longer Active Erica Gutierrez MD PhD Active BACTRIM DS 800-160 MG TAB 1 tab by mouth twice daily 2 TRIMETHOPRIM-SULFAMETHOXAZOLE 31099766726 No Longer Active Erica Gutierrez MD P hD Active PX MULTIVITAMINS 28-0.8 MG TABS Take 1 tablet by mouth daily VIT-FE FUMARATE-FA 21005645381 No Longer Active Erica Gutierrez MD PhD Active PX MULTIVITAMINS 28-0.8 MG TABS Take 1 tablet by mouth daily PX MULTIVITAMINS 28-0.8 MG TABS VIT-FE FUMARATE-FA Inactive TRI-SPRINTEC 0.18/0.215/0.25 MG-35 MCG TABS 1 po qd as directed TRI-SPRINTEC 0.18/0.215/0.25 MG-35 MCG TABS 579767 NORGESTIM-ETH ESTRAD TRIPHASIC Inactive METRONIDAZOLE 250 MG TABS 1 TID METRONIDAZ OLE 250 MG TABS 239592 METRONIDAZOLE Inactive ZOFRAN ODT 4 MG TBDP 1 po q6hr PRN Nausea ZOFRAN ODT 4 MG TBDP 958697 ONDANSETRON Inactive 1 30-0.975-200 MG CAPS 1 qDay 3 1 30-0.975-200 MG CAPS MV-MIN-FE FUM-FA-DHA Inactive BENADRYL 25 MG CAP 25-50 mg po q 4-6 hours PRN BENADRYL 25 MG CAP 4339521 DIPHENHYDRAMINE HCL Inactive LORATADINE 10 MG TABS 1 tablet by mouth daily in the AM LORATADINE 10 MG TABS 718438 LORATADINE Inactive HYDROCODONE-ACETAMINOPHEN 5-325 MG TABS 1 q 4-6 hrs prn HYDROCODONE-ACETAMINOPHEN 5-325 MG TABS 259794 HYDROCODONE-ACETAMIN OPHEN Inactive NEXPLANON 68 MG IMPL replace every 3 years NEXPLA NON 68 MG IMPL ETONOGESTREL Inactive BACTRIM DS 800-160 MG TAB 1 tab by mouth twice daily 2 BACTRIM DS 800-160 MG TAB TRIMETHOPRIM-SULFAMETHOXAZOLE Inac tive NITROFURANTOIN MONOHYD MACRO 100 MG CAPS 1 .bid NITROFURANTOIN MONOHYD MACRO 100 MG CAPS 957628 NITROFURANTOIN MONO HYD MACRO Inactive ZANTAC 150 MG TAB 1 po BID ZANTAC 150 MG TAB 19 8191 RANITIDINE HCL Inactive DIFLUCAN 150 MG TAB 1 qODay x 2 doses DIFLUCAN 150 MG TAB 056152 FLUCONAZOLE Inactive ZITHROMAX 250 MG TAB 2 po today, then 1 po q days 2-5 ZITHROMAX 250 MG TAB 7569506 AZITHROMYCIN Inactive BACTRIM DS 800-160 MG TAB 1 tab by mouth twice daily 2 BACTRIM DS 800-160 MG TAB TRIMETHOPRIM-SULFAMETHOXAZOLE Inac tive PROTONIX 40 MG SOLR 1 po q a.m. PROTONIX 40 MG SOLR 388929 PANTOPRAZOLE SODIUM Inactive CLARITHROMYCIN 500 MG TABS 1 tablet by mouth twice daily CLARITHROMYCIN 500 MG TABS 499671 CLARITHROMYCIN Inactive FLAGYL 500 MG TAB 1 tablet by mouth two times daily 29/01/27 FLAGYL 500 MG TAB 100351 METRONIDAZOLE Inactive PREVPAC MISC take as directed, twice daily PREV PAC MISC 631881 TINHZSYYP-LMOXCCWPT-DAIEZIZOM Inactive BACTRIM DS 800-160 MG TABS 1 [...] Value Unit Range Description blood pressure, diastolic 72 mm[Hg] BP martin blood pressure, systolic 108 mm[Hg] BP sys pulse rate E&M 67 /min Heart rate temperature E&M 96.9 [degF] Body temp erature weight E&M 172 [lb_av] Weight Measure d blood pressure, diastolic 79 mm[Hg] BP martin [...] weight E&M 166.50 [lb_av] Weight Measure d Diagnostic Results Date Name Value Unit Range Description Lab Report: Chlamydia/GC APTIMA/45181 - Lab chlamydia DNA probe NOT DETECTED NOT DETECTED Lab Report: Chlamydia/GC APTIMA/72624 - Microbiology Neisseria gonorrhoeae DNA probe NOT DETECTED NO T DETECTED Lab Report: H. Pylori, Comp. Metabolic P jared, CBC W/DIFF - Chemistry sodium, serum 139 mmol/L 629-448 2431/06/11 potassium, serum 4.2 mmol/L 3.5-5.2 chloride, serum [...] 5.0-8.5 Encounters Code Encounter Date Provider Facility CPT-91601 Level 3 Est. Patient 17:34:39 CDT Erica del angel MD PhD [facility] CPT-07127 Level 3 Est. Patient 15:37:34 OPERATIONS OFFICER TRUST DEPARTMENT Gabrielle Montenegro [facility] CPT-16960 Level 3 Est. Patient 11:00:48 CDT Erica del angel MD PhD [facility] CPT-17428 Level 3 Est. Patient 14:15:09 OPERATIONS OFFICER TRUST DEPARTMENT Jair boudreaux [facility] CPT-60491 Level 4 Est. Patient 14:28:18 CDT Erica del angel MD PhD [facility] Procedures Code Procedure Name Date Entry Date Standard Desc ription CPT-51162 Nexplanon Removal 10:29:42 OPERATIONS OFFICER TRUST DEPARTMENT CPT-OV Office Visit 10:29:42 OPERATIONS OFFICER TRUST DEPARTMENT CPT-OV Office Visit 15:00:46 CDT CPT-OV Office Visit 16:12:37 OPERATIONS OFFICER TRUST DEPARTMENT CPT-24495 Nexplanon Placement 06:24:16 CDT CPT-J7307 Nexplanon (Implant) 06:24:16 CDT CPT-OV Office Visit 06:24:16 CDT CPT-80691 [facility]CG (floor use only) 12:59:32 CDT CPT-OV Office Visit 10:46:11 CDT CPT-54127 Visit 14:16:15 OPERATIONS OFFICER [employer] DEPARTMENT CPT-75975 Visit 13:53:01 OPERATIONS OFFICER TRUST DEPARTMENT CPT-64144 Visit 18:31:27 OPERATIONS OFFICER [employer]UST DEPARTMENT CPT-90350 Sono OB comp > 14 weeks 17:35:57 OPERATIONS OFFICER TRUST DEPARTMENT 06/24 CPT-39762 Tubersol 13:49:34 OPERATIONS OFFICER [employer]UST DEPARTMENT CPT-14042 Administration single or combination vac cine inc oral 13:49:34 OPERATIONS OFFICER TRUST DEPARTMENT CPT-39944 TB Tubersol 13:49:34 OPERATIONS OFFICER TRUST DEPARTMENT CPT-29621 Visit 11:06:01 OPERATIONS OFFICER TRUST DEPARTMENT CPT-17377 Visit 11:47:38 CDT CPT-78559 TB Tubersol 10:44:14 CDT CPT-24017 Visit 15:16:49 CDT CPT-54345 Visit 16:33:29 CDT CPT-97600 Sono OB comp > 14 weeks 11:45:03 CDT 04/23 CPT-79119 Visit 10:03:29 CDT CPT-27608 Visit 10:35:45 CDT CPT-01926 Visit 11:10:45 CDT CPT-57000 Spec Collection and Handling Fee 14:28:18 C DT CPT-47463 Sono OB transvag <14 weeks 14:51:23 CDT 201 09/23/14 CPT-70494 Spec Collection and Handling Fee 11:21:[address] CPT-59571 Visit 11:49:17 OPERATIONS OFFICER TRUST DEPARTMENT CPT-37970 Visit 10:55:44 OPERATIONS OFFICER TRUST DEPARTMENT CPT-14633 Visit 10:28:35 OPERATIONS OFFICER TRUST DEPARTMENT CPT-01886 Visit 09:50:13 OPERATIONS OFFICER TRUST DEPARTMENT CPT-55648 Visit 22:07:15 CDT CPT-10223 Visit 09:05:22 CDT CPT-24018 Sono OB comp > 14 weeks 17:37:04 CDT 05/22 CPT-29797 Visit 10:00:01 CDT
--- OUTSIDE RECORDS SUMMARY | 2019-12-06 08:16 | XMS REPORT | Clinical Summary ---
Author Author Admin, Carmella Casarez Organization [facility] Address Unknown Phone Unavailable Allergies, Adverse [...] AGE 89.00 Resolved Erica Gutierrez MD PhD 'Etywh-foj-kgdqe' without me ntion of malnutrition, unspecified [weight] [...] 68 MG IMPL every 3 years ETONOGESTREL 32067844 001 Active Marimar Newsome MD Active FLAGYL 500 MG TAB 1 tablet by mouth two times daily 20 29/01/27 METRONIDAZOLE 37268307713 No Longer Active Erica Gutierrez MD PhD Act sirisha CLARITHROMYCIN 500 MG TABS 1 tablet by mouth twice daily CLARITHROMYCIN 94833239041 No Longer Active Erica Gutierrez MD PhD Ac tive PROTONIX 40 MG SOLR 1 po q a.m. PANTOPRAZOLE SO DIUM 25836309980 No Longer Active Erica Gutierrez MD PhD Active BACTRIM DS 800-160 MG TAB 1 tab by mouth twice daily 2 TRIMETHOPRIM-SULFAMETHOXAZOLE 15412292198 No Longer Active Erica Gutierrez MD P hD Active ZITHROMAX 250 MG TAB 2 po today, then 1 po q days 2-5 AZITHROMYCIN 50580779972 No Longer Active Gabrielle Dill APRN Acti ve NEXPLANON 68 MG IMPL replace every 3 years ETON OGESTREL 32337589368 No Longer Active Gabrielle Dill APRN Active HYDROCODONE-ACETAMINOPHEN 5-325 MG TABS 1 q 4-6 hrs prn HYDROCODONE-ACETAMINOPHEN 88639753590 No Longer Active Gabrielle Dill APRN Active DIFLUCAN 150 MG TAB 1 qODay x 2 doses FLUCONAZO LE 99961970195 No Longer Active Erica Gutierrez MD PhD Active LORATADINE 10 MG TABS 1 tablet by mouth daily in the AM LORATADINE 15798672993 No Longer Active Erica Gutierrez MD PhD Acti ve BENADRYL 25 MG CAP 25-50 mg po q 4-6 hours PRN DIPHENHYDRAMINE HCL 29306032273 No Longer Active Erica Gutierrez MD PhD Active 1 30-0.975-200 MG CAPS 1 qDay 3 MV-MIN-FE FUM-FA-DHA 93863811559 No Longer Active 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 Act sirisha ZANTAC 150 MG TAB 1 po BID RANITIDINE HCL 07450 068300 No Longer Active Erica Gutierrez MD PhD Active ZOFRAN ODT 4 MG TBDP 1 po q6hr PRN Nausea ONDAN SETRON 05391228660 No Longer Active Erica Gutierrez MD PhD Active METRONIDAZOLE 250 MG TABS 1 TID METRONIDAZOL E 78908095997 No Longer Active Erica Gutierrez MD PhD Active NITROFURANTOIN MONOHYD MACRO 100 MG CAPS 1 .bid NITROFURANTOIN MONOHYD MACRO 27343962893 No Longer Active Erica Gutierrez MD PhD Active TRI-SPRINTEC 0.18/0.215/0.25 MG-35 MCG TABS 1 po qd as directed NORGESTIM-ETH ESTRAD TRIPHASIC 53690350626 No Longer Active Erica Gutierrez MD PhD Active BACTRIM DS 800-160 MG TAB 1 tab by mouth twice daily 2 TRIMETHOPRIM-SULFAMETHOXAZOLE 38062963430 No Longer Active Erica Gutierrez MD P Active PX MULTIVITAMINS 28-0.8 MG TABS Take 1 tablet by mouth daily VIT-FE FUMARATE-FA 35317854897 No Longer Active Erica Gtuierrez MD PhD Active PX MULTIVITAMINS 28-0.8 MG TABS Take 1 tablet by mouth daily PX MULTIVITAMINS 28-0.8 MG TABS VIT-FE FUMARATE-FA Inactive TRI-SPRINTEC 0.18/0.215/0.25 MG-35 MCG TABS 1 po qd as directed TRI-SPRINTEC 0.18/0.215/0.25 MG-35 MCG TABS 182659 NORGESTIM-ETH ESTRAD TRIPHASIC Inactive METRONIDAZOLE 250 MG TABS 1 TID METRONIDAZ OLE 250 MG TABS 885905 METRONIDAZOLE Inactive ZOFRAN ODT 4 MG TBDP 1 po q6hr PRN Nausea ZOFRAN ODT 4 MG TBDP 136159 ONDANSETRON Inactive 1 30-0.975-200 MG CAPS 1 qDay 3 1 30-0.975-200 MG CAPS MV-MIN-FE FUM-FA-DHA Inactive BENADRYL 25 MG CAP 25-50 mg po q 4-6 hours PRN BENADRYL 25 MG CAP 2683477 DIPHENHYDRAMINE HCL Inactive LORATADINE 10 MG TABS 1 tablet by mouth daily in the AM LORATADINE 10 MG TABS 150546 LORATADINE Inactive HYDROCODONE-ACETAMINOPHEN 5-325 MG TABS 1 q 4-6 hrs prn HYDROCODONE-ACETAMINOPHEN 5-325 MG TABS 982807 HYDROCODONE-ACETAMIN OPHEN Inactive NEXPLANON 68 MG IMPL replace every 3 years NEXPLA NON 68 MG IMPL ETONOGESTREL Inactive BACTRIM DS 800-160 MG TAB 1 tab by mouth twice daily 2 BACTRIM DS 800-160 MG TAB TRIMETHOPRIM-SULFAMETHOXAZOLE Inac tive NITROFURANTOIN MONOHYD MACRO 100 MG CAPS 1 .bid NITROFURANTOIN MONOHYD MACRO 100 MG CAPS 593771 NITROFURANTOIN MONO HYD MACRO Inactive ZANTAC 150 MG TAB 1 po BID ZANTAC 150 MG TAB 19 8191 RANITIDINE HCL Inactive DIFLUCAN 150 MG TAB 1 qODay x 2 doses DIFLUCAN 150 MG TAB 078111 FLUCONAZOLE Inactive ZITHROMAX 250 MG TAB 2 po today, then 1 po q days 2-5 ZITHROMAX 250 MG TAB 0065671 AZITHROMYCIN Inactive BACTRIM DS 800-160 MG TAB 1 tab by mouth twice daily 2 BACTRIM DS 800-160 MG TAB TRIMETHOPRIM-SULFAMETHOXAZOLE Inac tive PROTONIX 40 MG SOLR 1 po q a.m. PROTONIX 40 MG SOLR 609620 PANTOPRAZOLE SODIUM Inactive CLARITHROMYCIN 500 MG TABS 1 tablet by mouth twice daily CLARITHROMYCIN 500 MG TABS 057000 CLARITHROMYCIN Inactive FLAGYL 500 MG TAB 1 tablet by mouth two times daily 20 29/01/27 FLAGYL 500 MG TAB 131079 METRONIDAZOLE Inactive Immunizations Vaccine Administration Date Value [...] W/DIFF - Chemistry sodium, serum 139 mmol/L 372-276 8625/06/11 potassium, serum 4.2 mmol/L 3.5-5.2 chloride, serum [...] 5.0-8.5 Encounters Code Encounter Date Provider Facility CPT-49448 Level 3 Est. Patient 17:34:39 CDT Erica del angel MD PhD [facility] CPT-30832 Level 3 Est. Patient 15:37:34 PHYSICAL THERAPY COORDINATOR Gabrielle Montenegro [facility] CPT-36132 Level 3 Est. Patient 11:00:48 CDT Erica del angel MD PhD [facility] CPT-34782 Level 3 Est. Patient 14:15:09 PHYSICAL THERAPY COORDINATOR Jair boudreaux [facility] CPT-94435 Level 4 Est. Patient 14:28:18 CDT Erica del angel MD PhD [facility] Procedures Code Procedure Name Date Entry Date Standard Desc ription CPT-OV Office Visit 15:00:46 CDT CPT-OV Office Visit 16:12:37 PHYSICAL THERAPY COORDINATOR CPT-84842 Nexplanon Placement 06:24:16 CDT CPT-J7307 Nexplanon (Implant) 06:24:16 CDT CPT-OV Office Visit 06:24:16 CDT CPT-65992 [facility]HCG (floor use only) 12:59:32 CDT CPT-OV Office Visit 10:46:11 CDT CPT-42062 Visit 14:16:15 PHYSICAL THERAPY COORDINATOR CPT-61848 Visit 13:53:01 PHYSICAL THERAPY COORDINATOR CPT-30888 Visit 18:31:27 PHYSICAL THERAPY COORDINATOR CPT-70158 Sono OB comp > 14 weeks 17:35:57 PHYSICAL THERAPY COORDINATOR 06/24 CPT-91070 Tubersol 13:49:34 PHYSICAL THERAPY COORDINATOR CPT-43815 Administration single or combination vac cine inc oral 13:49:34 PHYSICAL THERAPY COORDINATOR CPT-66806 TB Tubersol 13:49:34 PHYSICAL THERAPY COORDINATOR CPT-71440 Visit 11:06:01 PHYSICAL THERAPY COORDINATOR CPT-22785 Visit 11:47:38 CDT CPT-72721 TB Tubersol 10:44:14 CDT CPT-48293 Visit 15:16:49 CDT CPT-48003 Visit 16:33:29 CDT CPT-65287 Sono OB comp > 14 weeks 11:45:03 CDT 04/23 CPT-98347 Visit 10:03:29 CDT CPT-10302 Visit 10:35:45 CDT CPT-61807 Visit 11:10:45 CDT CPT-99460 Spec Collection and Handling Fee 14:28:18 C DT CPT-51497 Sono OB transvag <14 weeks 14:51:23 CDT 201 09/23/14 CPT-44319 Spec Collection and Handling Fee 11:21:[address] CPT-68581 Visit 11:49:17 PHYSICAL THERAPY COORDINATOR CPT-27394 Visit 10:55:44 PHYSICAL THERAPY COORDINATOR CPT-14326 Visit 10:28:35 PHYSICAL THERAPY COORDINATOR CPT-54078 Visit 09:50:13 PHYSICAL THERAPY COORDINATOR CPT-60056 Visit 22:07:15 CDT CPT-16890 Visit 09:05:22 CDT CPT-72574 [facility] comp > 14 weeks 17:37:04 CDT 05/22 CPT-02662 Visit 10:00:01 CDT
--- OUTSIDE RECORDS SUMMARY | 2019-12-06 08:16 | XMS REPORT | Clinical Summary ---
Author Author Rosa, Carmella Casarez Organization [facility] Address Unknown Phone Unavailable Allergies, Adverse [...] [age] Resolved Erica Gutierrez MD PhD '[id number]' without me ntion of malnutrition, unspecified [weight] [...] Dysmenorrhea Amenorrhea, secondary 626.0 Active Jair burnham EMD TEACHER Absence of menstruation ICD-V22.2 Inactive Erica Gutierrez [...] Instructions Start Date Stop Date Generic Name [facility] Status Provider Patient Instruction SPRINTEC 28 0.25-35 MG-MCG TABS one tab PO daily 09/05 NORGESTIMATE-ETH ESTRADIOL 04013662624 No Longer Active Jair Paez APRN Active NEXPLANON 68 MG IMPL every 3 years ETONOGESTREL 0 7962566206 No Longer Active Jair Paez APRN Active BACTRIM DS 800-160 MG TABS 1 pill by mouth twice daily, for UTI SULFAMETHOXAZOLE-TRIMETHOPRIM 94577515795 No Longer Active Corina Gutierrez MD PhD Active PREVPAC MISC take as directed, twice daily [id number] 66863390380 No Longer Active Erica Gutierrez MD P hD Active FLAGYL 500 MG TAB 1 tablet by mouth two times daily 20 29/01/27 METRONIDAZOLE 29677221849 No Longer Active Erica Gutierrez MD PhD Act sirisha CLARITHROMYCIN 500 MG TABS 1 tablet by mouth twice daily CLARITHROMYCIN 49526551111 No Longer Active Erica Gutierrez MD PhD Ac tive PROTONIX 40 MG SOLR 1 po q a.m. PANTOPRAZOLE SO DIUM 77919797219 No Longer Active Erica Gutierrez MD PhD Active BACTRIM DS 800-160 MG TAB 1 tab by mouth twice daily 2 TRIMETHOPRIM-SULFAMETHOXAZOLE 44778043586 No Longer Active Erica Gutierrez MD P hD Active ZITHROMAX 250 MG TAB 2 po today, then 1 po q days 2-5 AZITHROMYCIN 99066179960 No Longer Active Gabrielle Dill APRN Acti ve NEXPLANON 68 MG IMPL replace every 3 years ETON OGESTREL 78297626118 No Longer Active Gabrielle Dill APRN Active HYDROCODONE-ACETAMINOPHEN 5-325 MG TABS 1 q 4-6 hrs prn HYDROCODONE-ACETAMINOPHEN 11585437764 No Longer Active Gabrielle Fuentes EMD TEACHER Active DIFLUCAN 150 MG TAB 1 qODay x 2 doses FLUCONAZO LE 63684219624 No Longer Active Erica Gutierrez MD PhD Active LORATADINE 10 MG TABS 1 tablet by mouth daily in the AM LORATADINE 73687280533 No Longer Active Erica Gutierrez MD PhD Acti ve BENADRYL 25 MG CAP 25-50 mg po q 4-6 hours PRN DIPHENHYDRAMINE HCL 62879450719 No Longer Active Erica Gutierrez MD PhD Active 1 30-0.975-200 MG CAPS 1 qDay 3 MV-MIN-FE FUM-FA-DHA 08152219973 No Longer Active Jair Paez EMD TEACHER Act sirisha ZANTAC 150 MG TAB 1 po BID RANITIDINE HCL 32216 159231 No Longer Active Erica Gutierrez MD PhD Active ZOFRAN ODT 4 MG TBDP 1 po q6hr PRN Nausea ONDAN SETRON 31048526991 No Longer Active Erica Gutierrez MD PhD Active METRONIDAZOLE 250 MG TABS 1 TID METRONIDAZOL E 08826410217 No Longer Active Erica Gutierrez MD PhD Active NITROFURANTOIN MONOHYD MACRO 100 MG CAPS 1 .bid NITROFURANTOIN MONOHYD MACRO 57632732087 No Longer Active Erica Gutierrez MD PhD Active TRI-SPRINTEC 0.18/0.215/0.25 MG-35 MCG TABS 1 po qd as directed NORGESTIM-ETH ESTRAD TRIPHASIC 54804100533 No Longer Active Erica Gutierrez MD PhD Active BACTRIM DS 800-160 MG TAB 1 tab by mouth twice daily 2 TRIMETHOPRIM-SULFAMETHOXAZOLE 39371331638 No Longer Active Erica Gutierrez MD P hD Active PX MULTIVITAMINS 28-0.8 MG TABS Take 1 tablet by mouth daily VIT-FE FUMARATE-FA 29128175516 No Longer Active Erica Gutierrez MD PhD Active PX MULTIVITAMINS 28-0.8 MG TABS Take 1 tablet by mouth daily PX MULTIVITAMINS 28-0.8 MG TABS VIT-FE FUMARATE-FA Inactive TRI-SPRINTEC 0.18/0.215/0.25 MG-35 MCG TABS 1 po qd as directed TRI-SPRINTEC 0.18/0.215/0.25 MG-35 MCG TABS 436761 NORGESTIM-ETH ESTRAD TRIPHASIC Inactive METRONIDAZOLE 250 MG TABS 1 TID METRONIDAZ OLE 250 MG TABS 872853 METRONIDAZOLE Inactive ZOFRAN ODT 4 MG TBDP 1 po q6hr PRN Nausea ZOFRAN ODT 4 MG TBDP 649921 ONDANSETRON Inactive 1 30-0.975-200 MG CAPS 1 qDay 3 1 30-0.975-200 MG CAPS MV-MIN-FE FUM-FA-DHA Inactive BENADRYL 25 MG CAP 25-50 mg po q 4-6 hours PRN BENADRYL 25 MG CAP 5698149 DIPHENHYDRAMINE HCL Inactive LORATADINE 10 MG TABS 1 tablet by mouth daily in the AM LORATADINE 10 MG TABS 641451 LORATADINE Inactive HYDROCODONE-ACETAMINOPHEN 5-325 MG TABS 1 q 4-6 hrs prn HYDROCODONE-ACETAMINOPHEN 5-325 MG TABS 299026 HYDROCODONE-ACETAMIN OPHEN Inactive NEXPLANON 68 MG IMPL replace every 3 years NEXPLA NON 68 MG IMPL ETONOGESTREL Inactive NEXPLANON 68 MG IMPL every 3 years NEXPLANON 68 M G IMPL ETONOGESTREL Inactive SPRINTEC 28 0.25-35 MG-MCG TABS one tab PO daily 09/05 SPRINTEC 28 0.25-35 MG-MCG TABS 667168 NORGESTIMATE-ETH ESTRADIOL Inactive BACTRIM DS 800-160 MG TAB 1 tab by mouth twice daily 2 BACTRIM DS 800-160 MG TAB TRIMETHOPRIM-SULFAMETHOXAZOLE Inac tive NITROFURANTOIN MONOHYD MACRO 100 MG CAPS 1 .bid NITROFURANTOIN MONOHYD MACRO 100 MG CAPS 251569 NITROFURANTOIN MONO HYD MACRO Inactive ZANTAC 150 MG TAB 1 po BID ZANTAC 150 MG TAB 19 8191 RANITIDINE HCL Inactive DIFLUCAN 150 MG TAB 1 qODay x 2 doses DIFLUCAN 150 MG TAB 586356 FLUCONAZOLE Inactive ZITHROMAX 250 MG TAB 2 po today, then 1 po q days 2-5 ZITHROMAX 250 MG TAB 4158413 AZITHROMYCIN Inactive BACTRIM DS 800-160 MG TAB 1 tab by mouth twice daily 2 BACTRIM DS 800-160 MG TAB TRIMETHOPRIM-SULFAMETHOXAZOLE Inac tive PROTONIX 40 MG SOLR 1 po q a.m. PROTONIX 40 MG SOLR 639023 PANTOPRAZOLE SODIUM Inactive CLARITHROMYCIN 500 MG TABS 1 tablet by mouth twice daily CLARITHROMYCIN 500 MG TABS 147524 CLARITHROMYCIN Inactive FLAGYL 500 MG TAB 1 tablet by mouth two times daily 20 29/01/27 FLAGYL 500 MG TAB 792283 METRONIDAZOLE Inactive PREVPAC MISC take as directed, twice daily PREV PAC MISC 146543 [id number] Inactive BACTRIM DS 800-160 MG TABS 1 [...] Value Unit Range Description Lab Report: Chlamydia/GC APTIMA/[id number] - Lab chlamydia DNA probe NOT DETECTED NOT DETECTED Lab Report: Chlamydia/GC APTIMA/23301 - Microbiology Neisseria gonorrhoeae DNA probe NOT DETECTED NO T DETECTED Lab Report: H. Pylori, Comp. Metabolic P jared, CBC W/DIFF - Chemistry carbon dioxide, venous blood 25.8 mmol/L 21.0-32 .0 blood glucose 103 mg/dL 65-110 urea nitrogen, blood 16 mg/dL 7-18 sodium, serum 139 mmol/L 920-946 9991/06/11 creatinine, serum 0.90 mg/dL 0.60-1.30 alanine aminotransferase (SGPT), serum 52 U/L 12-78 aspartate aminotransferase (SGOT), serum 31 U/L 15-37 alkaline phosphatase, serum 132 U/L 50-136 calcium, serum 9.3 mg/dL 8.5-10.1 bilirubin, serum, total 0.30 mg/dL 0.00-1.00 potassium, serum 4.2 mmol/L 3.5-5.2 chloride, serum 103 mmol/L 98-107 Lab Report: H. Pylori, Comp. Metabolic P [...] - Chemis try protein, total urine random Negative mg/dL Negative RBC, urine, dipstick Trace Negative protein, [...] Negative Negative pH, urine, semiquantitative 6.0 5.0-8.5 specific gravity, urine 1.025 1.000-1.030 appearance, urine Cloudy Clear urine color Yellow Colorless;Lightyellow;St raw;Yellow urobilinogen, urine, semiquantitative (dipstick) 0.2 Normal leukocyte esterase, urine, by dipstick 2+ Negative nitrite, urine, semiquantitative Negative Neg ative glucose, urine, semiquantitative Negative Neg ative ketones, urine, by test strip Negative Negati ve bilirubin, urine Negative Negative urine color Yellow Colorless;Lightyellow;St raw;Yellow appearance, urine Clear Clear specific gravity, urine 1.020 1.000-1.030 pH, urine, semiquantitative 7.0 5.0-8.5 Encounters Code Encounter Date Provider Facility CPT-28559 Level 3 Est. Patient 17:34:39 CDT Erica del nagel MD PhD [facility] CPT-83574 Level 3 Est. Patient 15:37:34 IT SOLUTIONS ARCHITECT Gabrielle Montenegro [facility] CPT-77618 Level 3 Est. Patient 11:00:48 CDT Erica del angel MD PhD [facility] CPT-16084 Level 3 Est. Patient 14:15:09 IT SOLUTIONS ARCHITECT Mannyty Yareli janusz [facility] CPT-27961 Level 4 Est. Patient 14:28:18 CDT Erica del angel MD PhD [facility] Procedures Code Procedure Name Date Entry Date Standard Desc ription CPT-90714 Nexplanon Removal 10:29:42 IT SOLUTIONS ARCHITECT CPT-OV Office Visit 10:29:42 IT SOLUTIONS ARCHITECT CPT-OV Office Visit 15:00:46 CDT CPT-OV Office Visit 16:12:37 IT SOLUTIONS ARCHITECT CPT-65683 Nexplanon Placement 06:24:16 CDT CPT-J7307 Nexplanon (Implant) 06:24:16 CDT CPT-OV Office Visit 06:24:16 CDT CPT-23258 UHCG (floor use only) 12:59:32 CDT CPT-OV Office Visit 10:46:11 CDT CPT-57659 Visit 14:16:15 IT SOLUTIONS ARCHITECT CPT-74785 Visit 13:53:01 IT SOLUTIONS ARCHITECT CPT-73697 Visit 18:31:27 IT SOLUTIONS ARCHITECT CPT-87803 Sono OB comp > 14 weeks 17:35:57 IT SOLUTIONS ARCHITECT 06/24 CPT-93980 Tubersol 13:49:34 IT SOLUTIONS ARCHITECT CPT-24066 Administration single or combination vac cine inc oral 13:49:34 IT SOLUTIONS ARCHITECT CPT-07319 TB Tubersol 13:49:34 IT SOLUTIONS ARCHITECT CPT-77359 Visit 11:06:01 IT SOLUTIONS ARCHITECT CPT-65787 Visit 11:47:38 CDT CPT-01309 TB Tubersol 10:44:14 CDT CPT-96089 Visit 15:16:49 CDT CPT-98512 Visit 16:33:29 CDT CPT-97876 Sono OB comp > 14 weeks 11:45:03 CDT 04/23 CPT-27378 Visit 10:03:29 CDT CPT-64284 Visit 10:35:45 CDT CPT-84497 Visit 11:10:45 CDT CPT-97602 Spec Collection and Handling Fee 14:28:18 C DT CPT-47232 Sono OB transvag <14 weeks 14:51:23 CDT 201 09/23/14 CPT-78118 Spec Collection and Handling Fee 11:21:[address] CPT-68576 Visit 11:49:17 IT SOLUTIONS ARCHITECT CPT-64897 Visit 10:55:44 IT SOLUTIONS ARCHITECT CPT-02350 Visit 10:28:35 IT SOLUTIONS ARCHITECT CPT-34869 Visit 09:50:13 IT SOLUTIONS ARCHITECT CPT-02187 Visit 22:07:15 CDT CPT-22001 Visit 09:05:22 CDT CPT-53333 Sono OB comp > 14 weeks 17:37:04 CDT 05/22 CPT-81019 Visit 10:00:01 CDT
--- OUTSIDE RECORDS SUMMARY | 2019-12-06 08:17 | XMS REPORT | Clinical Summary ---
Author Author Admin, Carmella Casarez Organization [facility] Address Unknown Phone Allergies, Adverse Reactions, Alerts [...] [age] Resolved Erica Gutierrez MD PhD '[id number]-[id number]' without me ntion of malnutrition, unspecified [weight] [...] specified gastritis, without menti on of hemorrhage SMALL FOR GESTATIONAL AGE ICD-764.00 Inactive Erica Gutierrez MD PhD EXAMINATION ICD-V24.2 Inactive Sterling Gutierrez MD PhD SUPRAPUBIC PAIN ICD-789.09 Inactive Erica still MD PhD CONTRACEPTION MANAGEMENT ICD-V25.09 Inactive Erica Gutierrez MD PhD OTHER SPECIFED COMPLICATION ANTEPARTUM ICD-646.83 20 07/24/03 Inactive rEica Gutierrez MD PhD ICD-V22.2 Inactive Erica Gutierrez MD Ph D UTERINE SIZE DATE DISCREPANCY ANTPRTM COND/COMPL ICD-649.63 Inactive Erica Gutierrez MD PhD UTI ICD-599.0 Inactive Erica Gutierrez MD PhD 201 09/27/23 VAGINITIS ICD-616.10 Inactive Erica Gutierrez MD P hD URTICARIA ICD-708.9 Inactive Erica Gutierrez MD Ph D , NORMAL ICD-V22.2 Inactive Erica donnelly MD PhD CANDIDIASIS, VAGINAL ICD-112.1 Inactive Ercia Gutierrez MD PhD Pharyngitis, acute ICD-074.0 Inactive Erica del angel MD PhD Otitis media, left ICD-382.9 Inactive Erica del angel MD PhD SEXUALLY TRANSMITTED DISEASE, EXPOSURE TO ICD-V01.6 Inactive Erica Gutierrez MD PhD VAGINAL BLEEDING, FIRST TRIMESTER ICD-641.90 In active Erica Gutierrez MD PhD Medication List Medication Instructions Start Date Stop Date Generic Name NDC Status Provider Patient Instruction FLAGYL 500 MG TAB 1 tablet by mouth two times daily 20 29/01/27 METRONIDAZOLE 02152945621 Active Erica Gutierrez MD PhD Active CLARITHROMYCIN 500 MG TABS 1 tablet by mouth twice daily CLARITHROMYCIN 94822446153 Active Erica Gutierrez MD PhD Active PROTONIX 40 MG SOLR 1 po q a.m. PANTOPRAZOLE SO DIUM 35383437522 Active Erica Gutierrez MD PhD Active BACTRIM DS 800-160 MG TAB 1 tab by mouth twice daily 2 TRIMETHOPRIM-SULFAMETHOXAZOLE 86297081710 Active Erica Gutierrez MD PhD Active ZITHROMAX 250 MG TAB 2 po today, then 1 po q days 2-5 AZITHROMYCIN 49612043440 No Longer Active Gabrielle Dill APRN Acti ve NEXPLANON 68 MG IMPL replace every 3 years ETON OGESTREL 86702996039 No Longer Active Gabrielle Dill APRN Active HYDROCODONE-ACETAMINOPHEN 5-325 MG TABS 1 q 4-6 hrs prn HYDROCODONE-ACETAMINOPHEN 88618972850 No Longer Active Gabrielle Dill APRN Active DIFLUCAN 150 MG TAB 1 qODay x 2 doses FLUCONAZO LE 25656572524 No Longer Active Erica Gutierrez MD PhD Active LORATADINE 10 MG TABS 1 tablet by mouth daily in the AM LORATADINE 22494696923 No Longer Active Erica Gutierrez MD PhD Acti ve BENADRYL 25 MG CAP 25-50 mg po q 4-6 hours PRN DIPHENHYDRAMINE HCL 50814098300 No Longer Active Erica Gutierrez MD PhD Active 1 30-0.975-200 MG CAPS 1 qDay 3 MV-MIN-FE FUM-FA-DHA 23519094763 No Longer Active Jair Paez APRN Act sirisha ZANTAC 150 MG TAB 1 po BID RANITIDINE HCL 33091 429457 No Longer Active Erica Gutierrez MD PhD Active ZOFRAN ODT 4 MG TBDP 1 po q6hr PRN Nausea ONDAN SETRON 47512091298 No Longer Active Erica Gutierrez MD PhD Active METRONIDAZOLE 250 MG TABS 1 TID METRONIDAZOL E 52852478579 No Longer Active Erica Gutierrez MD PhD Active NITROFURANTOIN MONOHYD MACRO 100 MG CAPS 1 .bid NITROFURANTOIN MONOHYD MACRO 74775939403 No Longer Active Erica Gutierrez MD PhD Active TRI-SPRINTEC 0.18/0.215/0.25 MG-35 MCG TABS 1 po qd as directed NORGESTIM-ETH ESTRAD TRIPHASIC 82015055654 No Longer Active Erica Gutierrez MD PhD Active BACTRIM DS 800-160 MG TAB 1 tab by mouth twice daily 2 TRIMETHOPRIM-SULFAMETHOXAZOLE 40039181911 No Longer Active Erica Gutierrez MD P hD Active PX MULTIVITAMINS 28-0.8 MG TABS Take 1 tablet by mouth daily VIT-FE FUMARATE-FA 88483801984 No Longer Active Erica Gutierrez MD PhD Active PX MULTIVITAMINS 28-0.8 MG TABS Take 1 tablet by mouth daily PX MULTIVITAMINS 28-0.8 MG TABS VIT-FE FUMARATE-FA Inactive TRI-SPRINTEC 0.18/0.215/0.25 MG-35 MCG TABS 1 po qd as directed TRI-SPRINTEC 0.18/0.215/0.25 MG-35 MCG TABS 283483 NORGESTIM-ETH ESTRAD TRIPHASIC Inactive METRONIDAZOLE 250 MG TABS 1 TID METRONIDAZ OLE 250 MG TABS 663594 METRONIDAZOLE Inactive ZOFRAN ODT 4 MG TBDP 1 po q6hr PRN Nausea ZOFRAN ODT 4 MG TBDP 995237 ONDANSETRON Inactive 1 30-0.975-200 MG CAPS 1 qDay 3 1 30-0.975-200 MG CAPS MV-MIN-FE FUM-FA-DHA Inactive BENADRYL 25 MG CAP 25-50 mg po q 4-6 hours PRN BENADRYL 25 MG CAP 1394142 DIPHENHYDRAMINE HCL Inactive LORATADINE 10 MG TABS 1 tablet by mouth daily in the AM LORATADINE 10 MG TABS 593021 LORATADINE Inactive HYDROCODONE-ACETAMINOPHEN 5-325 MG TABS 1 q 4-6 hrs prn HYDROCODONE-ACETAMINOPHEN 5-325 MG TABS 393228 HYDROCODONE-ACETAMIN OPHEN Inactive NEXPLANON 68 MG IMPL replace every 3 years NEXPLA NON 68 MG IMPL ETONOGESTREL Inactive BACTRIM DS 800-160 MG TAB 1 tab by mouth twice daily 2 BACTRIM DS 800-160 MG TAB TRIMETHOPRIM-SULFAMETHOXAZOLE Inac tive NITROFURANTOIN MONOHYD MACRO 100 MG CAPS 1 .bid NITROFURANTOIN MONOHYD MACRO 100 MG CAPS 227067 NITROFURANTOIN MONO HYD MACRO Inactive ZANTAC 150 MG TAB 1 po BID ZANTAC 150 MG TAB 19 8191 RANITIDINE HCL Inactive DIFLUCAN 150 MG TAB 1 qODay x 2 doses DIFLUCAN 150 MG TAB 746443 FLUCONAZOLE Inactive ZITHROMAX 250 MG TAB 2 po today, then 1 po q days 2-5 ZITHROMAX 250 MG TAB 1045241 AZITHROMYCIN Inactive Immunizations Vaccine Administration Date Value [...] W/DIFF - Chemistry sodium, serum 139 mmol/L 870-225 8425/06/11 potassium, serum 4.2 mmol/L 3.5-5.2 chloride, serum [...] count 314 10^3/MM^3 10*3/mm3 142-424 Lab Report: HIV-1/HIV-2 AB SCREEN W REFL /[id number], RPR (DX) W/REFL TITER & ... - [...] Negative nitrite, urine, semiquantitative Negative Neg ative Lab Report: [facility] - Chemistry human chorionic gonadotropin , urine, qualitative (urine test) Negative Negative Office Visit: discuss nexplanon - Chemis try human chorionic gonadotropin , urine, qualitative (urine test) Negative Office Visit: nexplanon - Chemistry human chorionic gonadotropin , urine, qualitative (urine test) Negative Encounters Code Encounter Date Provider Facility CPT-02165 Level 3 Est. Patient 17:34:39 CDT Erica del angel MD PhD [facility] CPT-89560 Level 3 Est. Patient 15:37:34 REAL ESTATE UNDERWRITER Gabrielle Montenegro [facility] CPT-08535 Level 3 Est. Patient 11:00:48 CDT Erica del angel MD PhD [facility] CPT-72672 Level 3 Est. Patient 14:15:09 REAL ESTATE UNDERWRITER Jair boudreaux [facility] CPT-70910 Level 4 Est. Patient 14:28:18 CDT Erica del angel MD PhD [facility] Procedures Code Procedure Name Date Entry Date Standard Desc ription CPT-OV Office Visit 16:12:37 REAL ESTATE UNDERWRITER CPT-72454 Nexplanon Placement 06:24:16 CDT CPT-J7307 Nexplanon (Implant) 06:24:16 CDT CPT-OV Office Visit 06:24:16 CDT CPT-14450 UHCG (floor use only) 12:59:32 CDT CPT-OV Office Visit 10:46:11 CDT CPT-30945 Visit 14:16:15 REAL ESTATE UNDERWRITER CPT-44805 Visit 13:53:01 REAL ESTATE UNDERWRITER CPT-90665 Visit 18:31:27 REAL ESTATE UNDERWRITER CPT-33560 Sono OB comp > 14 weeks 17:35:57 REAL ESTATE UNDERWRITER 06/24 CPT-07942 Tubersol 13:49:34 REAL ESTATE UNDERWRITER CPT-91606 Administration single or combination vac cine inc oral 13:49:34 REAL ESTATE UNDERWRITER CPT-95079 TB Tubersol 13:49:34 REAL ESTATE UNDERWRITER CPT-73790 Visit 11:06:01 REAL ESTATE UNDERWRITER CPT-60437 Visit 11:47:38 CDT CPT-02453 TB Tubersol 10:44:14 CDT CPT-86292 Visit 15:16:49 CDT CPT-30242 Visit 16:33:29 CDT CPT-29160 Sono OB comp > 14 weeks 11:45:03 CDT 04/23 CPT-47045 Visit 10:03:29 CDT CPT-71567 Visit 10:35:45 CDT CPT-21337 Visit 11:10:45 CDT CPT-73612 Spec Collection and Handling Fee 14:28:18 C DT CPT-55846 Sono OB transvag <14 weeks 14:51:23 CDT 201 09/23/14 CPT-93494 Spec Collection and Handling Fee 11:21:[address] CPT-40799 Visit 11:49:17 REAL ESTATE UNDERWRITER CPT-51464 Visit 10:55:44 REAL ESTATE UNDERWRITER CPT-40196 Visit 10:28:35 REAL ESTATE UNDERWRITER CPT-36859 Visit 09:50:13 REAL ESTATE UNDERWRITER CPT-91715 Visit 22:07:15 CDT CPT-46920 Visit 09:05:22 CDT CPT-70717 Sono OB comp > 14 weeks 17:37:04 CDT 05/22 CPT-80139 Visit 10:00:01 CDT
--- OUTSIDE RECORDS SUMMARY | 2019-12-06 08:17 | XMS REPORT | Clinical Summary ---
Author Author Rosa, Carmella Casarez Organization [facility] Address Unknown Phone Unavailable Allergies, [...] AGE 89.00 Resolved Erica Gutierrez MD PhD '[id number]-[id number]' without me ntion of malnutrition, unspecified [weight] [...] TRANSMITTED DISEASE, EXPOSURE TO V01.6 Resol francy Eriac Gutierrez MD PhD Contact with or exposure [...] Dysmenorrhea Amenorrhea, secondary 626.0 Active Jair burnham BASEBALL INSPECTOR AND REPAIRER Absence of menstruation ICD-V22.2 Inactive Erica Gutierrez [...] Instructions Start Date Stop Date Generic Name [facility] Status Provider Patient Instruction SPRINTEC 28 0.25-35 MG-MCG TABS one tab PO daily 09/05 NORGESTIMATE-ETH ESTRADIOL 99562026823 No Longer Active Jair Paez APRN Active NEXPLANON 68 MG IMPL every 3 years ETONOGESTREL 0 2499613645 No Longer Active Jair Paez APRN Active BACTRIM DS 800-160 MG TABS 1 pill by mouth twice daily, for UTI SULFAMETHOXAZOLE-TRIMETHOPRIM 83116191537 No Longer Active Corina Gutierrez MD PhD Active PREVPAC MISC take as directed, twice daily HEWPXMYFQ-GHFWEVZCA-XYAUCNAOA 86462119394 No Longer Active Erica Gutierrez MD P hD Active FLAGYL 500 MG TAB 1 tablet by mouth two times daily 20 29/01/27 METRONIDAZOLE 59851584297 No Longer Active Erica Gutierrez MD PhD Act sirisha CLARITHROMYCIN 500 MG TABS 1 tablet by mouth twice daily CLARITHROMYCIN 07078694842 No Longer Active Erica Gutierrez MD PhD Ac tive PROTONIX 40 MG SOLR 1 po q a.m. PANTOPRAZOLE SO DIUM 77308051311 No Longer Active Erica Gutierrez MD PhD Active BACTRIM DS 800-160 MG TAB 1 tab by mouth twice daily 2 TRIMETHOPRIM-SULFAMETHOXAZOLE 98277396353 No Longer Active Erica Gutierrez MD P hD Active ZITHROMAX 250 MG TAB 2 po today, then 1 po q days 2-5 AZITHROMYCIN 65619071714 No Longer Active Gabrielle Dill APRN Acti ve NEXPLANON 68 MG IMPL replace every 3 years ETON OGESTREL 80689220939 No Longer Active Gabrielle Dill APRN Active HYDROCODONE-ACETAMINOPHEN 5-325 MG TABS 1 q 4-6 hrs prn HYDROCODONE-ACETAMINOPHEN 82113647605 No Longer Active Gabrielle Fuentes BASEBALL INSPECTOR AND REPAIRER Active DIFLUCAN 150 MG TAB 1 qODay x 2 doses FLUCONAZO LE 91699541039 No Longer Active Erica Gutierrez MD PhD Active LORATADINE 10 MG TABS 1 tablet by mouth daily in the AM LORATADINE 94272873284 No Longer Active Erica Gutierrez MD PhD Acti ve BENADRYL 25 MG CAP 25-50 mg po q 4-6 hours PRN DIPHENHYDRAMINE HCL 80370329803 No Longer Active Erica Gutierrez MD PhD Active 1 30-0.975-200 MG CAPS 1 qDay 3 MV-MIN-FE FUM-FA-DHA 22400924234 No Longer Active Jair Paez BASEBALL INSPECTOR AND REPAIRER Act sirisha ZANTAC 150 MG TAB 1 po BID RANITIDINE HCL 05484 281041 No Longer Active Erica Gutierrez MD PhD Active ZOFRAN ODT 4 MG TBDP 1 po q6hr PRN Nausea ONDAN SETRON 04559490754 No Longer Active Erica Gutierrez MD PhD Active METRONIDAZOLE 250 MG TABS 1 TID METRONIDAZOL E 11597263329 No Longer Active Erica Gutierrez MD PhD Active NITROFURANTOIN MONOHYD MACRO 100 MG CAPS 1 .bid NITROFURANTOIN MONOHYD MACRO 27868294385 No Longer Active Erica Gutierrez MD PhD Active TRI-SPRINTEC 0.18/0.215/0.25 MG-35 MCG TABS 1 po qd as directed NORGESTIM-ETH ESTRAD TRIPHASIC 55922337612 No Longer Active Erica Gutierrez MD PhD Active BACTRIM DS 800-160 MG TAB 1 tab by mouth twice daily 2 TRIMETHOPRIM-SULFAMETHOXAZOLE 39561754530 No Longer Active Erica Gutierrez MD P hD Active PX MULTIVITAMINS 28-0.8 MG TABS Take 1 tablet by mouth daily VIT-FE FUMARATE-FA 92429931805 No Longer Active Erica Gutierrez MD PhD Active PX MULTIVITAMINS 28-0.8 MG TABS Take 1 tablet by mouth daily PX MULTIVITAMINS 28-0.8 MG TABS VIT-FE FUMARATE-FA Inactive TRI-SPRINTEC 0.18/0.215/0.25 MG-35 MCG TABS 1 po qd as directed TRI-SPRINTEC 0.18/0.215/0.25 MG-35 MCG TABS 242456 NORGESTIM-ETH ESTRAD TRIPHASIC Inactive METRONIDAZOLE 250 MG TABS 1 TID METRONIDAZ OLE 250 MG TABS 461218 METRONIDAZOLE Inactive ZOFRAN ODT 4 MG TBDP 1 po q6hr PRN Nausea ZOFRAN ODT 4 MG TBDP 618852 ONDANSETRON Inactive 1 30-0.975-200 MG CAPS 1 qDay 3 1 30-0.975-200 MG CAPS MV-MIN-FE FUM-FA-DHA Inactive BENADRYL 25 MG CAP 25-50 mg po q 4-6 hours PRN BENADRYL 25 MG CAP 6001425 DIPHENHYDRAMINE HCL Inactive LORATADINE 10 MG TABS 1 tablet by mouth daily in the AM LORATADINE 10 MG TABS 660096 LORATADINE Inactive HYDROCODONE-ACETAMINOPHEN 5-325 MG TABS 1 q 4-6 hrs prn HYDROCODONE-ACETAMINOPHEN 5-325 MG TABS 750079 HYDROCODONE-ACETAMIN OPHEN Inactive NEXPLANON 68 MG IMPL replace every 3 years NEXPLA NON 68 MG IMPL ETONOGESTREL Inactive NEXPLANON 68 MG IMPL every 3 years NEXPLANON 68 M G IMPL ETONOGESTREL Inactive SPRINTEC 28 0.25-35 MG-MCG TABS one tab PO daily 09/05 SPRINTEC 28 0.25-35 MG-MCG TABS 164803 NORGESTIMATE-ETH ESTRADIOL Inactive BACTRIM DS 800-160 MG TAB 1 tab by mouth twice daily 2 BACTRIM DS 800-160 MG TAB TRIMETHOPRIM-SULFAMETHOXAZOLE Inac tive NITROFURANTOIN MONOHYD MACRO 100 MG CAPS 1 .bid NITROFURANTOIN MONOHYD MACRO 100 MG CAPS 016843 NITROFURANTOIN MONO HYD MACRO Inactive ZANTAC 150 MG TAB 1 po BID ZANTAC 150 MG TAB 19 8191 RANITIDINE HCL Inactive DIFLUCAN 150 MG TAB 1 qODay x 2 doses DIFLUCAN 150 MG TAB 924206 FLUCONAZOLE Inactive ZITHROMAX 250 MG TAB 2 po today, then 1 po q days 2-5 ZITHROMAX 250 MG TAB 3663890 AZITHROMYCIN Inactive BACTRIM DS 800-160 MG TAB 1 tab by mouth twice daily 2 BACTRIM DS 800-160 MG TAB TRIMETHOPRIM-SULFAMETHOXAZOLE Inac tive PROTONIX 40 MG SOLR 1 po q a.m. PROTONIX 40 MG SOLR 262480 PANTOPRAZOLE SODIUM Inactive CLARITHROMYCIN 500 MG TABS 1 tablet by mouth twice daily CLARITHROMYCIN 500 MG TABS 045821 CLARITHROMYCIN Inactive FLAGYL 500 MG TAB 1 tablet by mouth two times daily 20 29/01/27 FLAGYL 500 MG TAB 727861 METRONIDAZOLE Inactive PREVPAC MISC take as directed, twice daily PREV PAC MISC 057245 PQYNIJBSP-[id number]-BHEPXTQWI Inactive BACTRIM DS 800-160 MG TABS 1 [...] Value Unit Range Description Lab Report: Chlamydia/GC APTIMA/97880 - Lab chlamydia DNA probe NOT DETECTED NOT DETECTED Lab Report: Chlamydia/GC APTIMA/12830 - Microbiology Neisseria gonorrhoeae DNA probe NOT DETECTED NO T DETECTED Lab Report: H. Pylori, Comp. Metabolic P jared, CBC W/DIFF - Chemistry sodium, serum 139 mmol/L 339-744 1147/06/11 potassium, serum 4.2 mmol/L 3.5-5.2 chloride, serum [...] 5.0-8.5 Encounters Code Encounter Date Provider Facility CPT-46980 Level 3 Est. Patient 17:34:39 CDT Erica del angel MD PhD [facility] CPT-01363 Level 3 Est. Patient 15:37:34 LOAN OPERATIONS MANAGER Gabrielle [facility] CPT-37134 Level 3 Est. Patient 11:00:48 CDT Erica del angel MD PhD [facility] CPT-26556 Level 3 Est. Patient 14:15:09 LOAN OPERATIONS MANAGER Jair [facility]oudre[facility] CPT-22689 Level 4 Est. Patient 14:28:18 CDT Erica del angel MD PhD [facility] Procedures Code Procedure Name Date Entry Date Standard Desc ription CPT-15903 Nexplanon Removal 10:29:42 LOAN OPERATIONS MANAGER CPT-OV Office Visit 10:29:42 LOAN OPERATIONS MANAGER CPT-OV Office Visit 15:00:46 CDT CPT-OV Office Visit 16:12:37 LOAN OPERATIONS MANAGER CPT-04436 Nexplanon Placement 06:24:16 CDT CPT-J7307 Nexplanon (Implant) 06:24:16 CDT CPT-OV Office Visit 06:24:16 CDT CPT-32222 [facility]CG (floor use only) 12:59:32 CDT CPT-OV Office Visit 10:46:11 CDT CPT-55541 Visit 14:16:15 LOAN OPERATIONS MANAGER CPT-15987 Visit 13:53:01 LOAN OPERATIONS MANAGER CPT-29102 Visit 18:31:27 LOAN OPERATIONS MANAGER CPT-40790 Sono OB comp > 14 weeks 17:35:57 LOAN OPERATIONS MANAGER 06/24 CPT-63265 Tubersol 13:49:34 LOAN OPERATIONS MANAGER CPT-59538 Administration single or combination vac cine inc oral 13:49:34 LOAN OPERATIONS MANAGER CPT-65730 TB Tubersol 13:49:34 LOAN OPERATIONS MANAGER CPT-79607 Visit 11:06:01 LOAN OPERATIONS MANAGER CPT-84298 Visit 11:47:38 CDT CPT-22469 TB Tubersol 10:44:14 CDT CPT-38822 Visit 15:16:49 CDT CPT-41782 Visit 16:33:29 CDT CPT-18681 Sono OB comp > 14 weeks 11:45:03 CDT 04/23 CPT-30577 Visit 10:03:29 CDT CPT-67801 Visit 10:35:45 CDT CPT-39938 Visit 11:10:45 CDT CPT-24156 Spec Collection and Handling Fee 14:28:18 C DT CPT-18322 Sono OB transvag <14 weeks 14:51:23 CDT 201 09/23/14 CPT-97348 Spec Collection and Handling Fee 11:21:[address] CPT-34827 Visit 11:49:17 LOAN OPERATIONS MANAGER CPT-56077 Visit 10:55:44 LOAN OPERATIONS MANAGER CPT-54236 Visit 10:28:35 LOAN OPERATIONS MANAGER CPT-52405 Visit 09:50:13 LOAN OPERATIONS MANAGER CPT-73314 Visit 22:07:15 CDT CPT-27524 Visit 09:05:22 CDT CPT-31262 Sono OB comp > 14 weeks 17:37:04 CDT 05/22 CPT-78909 Visit 10:00:01 CDT
--- OUTSIDE RECORDS SUMMARY | 2019-12-06 08:17 | XMS REPORT | Clinical Summary ---
Author Author Admin, Carmella Casarez Organization [facility] Address Unknown Phone Allergies, Adverse Reactions, Alerts [...] [age] Resolved Erica Gutierrez MD PhD 'Uytid-zzb-apgsn' without me ntion of malnutrition, unspecified [weight] [...] specified gastritis, without menti on of hemorrhage ICD-V22.2 Inactive Erica Gutierrez MD Ph D [...] Marques Gutierrez MD PhD CANDIDIASIS, VAGINAL ICD-112.1 Inactive Erica Gutierrez MD PhD Pharyngitis, acute ICD-074.0 Inactive Erica del angel MD PhD Otitis media, left ICD-382.9 Inactive Erica del angel MD PhD Medication List Medication Instructions Start Date Stop Date Generic Name NDC Status Provider Patient Instruction FLAGYL 500 MG TAB 1 tablet by mouth two times daily 20 29/01/27 METRONIDAZOLE 08267350026 Active Erica Gutierrez MD PhD Active CLARITHROMYCIN 500 MG TABS 1 tablet by mouth twice daily CLARITHROMYCIN 96100713355 Active Erica Gutierrez MD PhD Active PROTONIX 40 MG SOLR 1 po q a.m. PANTOPRAZOLE SO DIUM 29683647823 Active Erica Gutierrez MD PhD Active BACTRIM DS 800-160 MG TAB 1 tab by mouth twice daily 2 TRIMETHOPRIM-SULFAMETHOXAZOLE 88266628265 Active Erica Gutierrez MD PhD Active ZITHROMAX 250 MG TAB 2 po today, then 1 po q days 2-5 AZITHROMYCIN 77564442964 No Longer Active Gabrielle Dill APRN Acti ve NEXPLANON 68 MG IMPL replace every 3 years ETON OGESTREL 22366502022 No Longer Active Gabrielle Dill APRN Active HYDROCODONE-ACETAMINOPHEN 5-325 MG TABS 1 q 4-6 hrs prn HYDROCODONE-ACETAMINOPHEN 40776995567 No Longer Active Gabrielle Dill APRN Active DIFLUCAN 150 MG TAB 1 qODay x 2 doses FLUCONAZO LE 72157678817 No Longer Active Erica Gutierrez MD PhD Active LORATADINE 10 MG TABS 1 tablet by mouth daily in the AM LORATADINE 32771897576 No Longer Active Erica Gutierrez MD PhD Acti ve BENADRYL 25 MG CAP 25-50 mg po q 4-6 hours PRN DIPHENHYDRAMINE HCL 48787436052 No Longer Active Erica Gutierrez MD PhD Active 1 30-0.975-200 MG CAPS 1 qDay 3 MV-MIN-FE FUM-FA-DHA 27379242458 No Longer Active Jair Paez APRN Act sirisha ZANTAC 150 MG TAB 1 po BID RANITIDINE HCL 93125 582200 No Longer Active Erica Gutierrez MD PhD Active ZOFRAN ODT 4 MG TBDP 1 po q6hr PRN Nausea ONDAN SETRON 34831037310 No Longer Active Erica Gutierrez MD PhD Active METRONIDAZOLE 250 MG TABS 1 TID METRONIDAZOL E 01088302825 No Longer Active Erica Gutierrez MD PhD Active NITROFURANTOIN MONOHYD MACRO 100 MG CAPS 1 .bid NITROFURANTOIN MONOHYD MACRO 11785131754 No Longer Active Erica Gutierrez MD PhD Active TRI-SPRINTEC 0.18/0.215/0.25 MG-35 MCG TABS 1 po qd as directed NORGESTIM-ETH ESTRAD TRIPHASIC 50243029792 No Longer Active Erica Gutierrez MD PhD Active BACTRIM DS 800-160 MG TAB 1 tab by mouth twice daily 2 TRIMETHOPRIM-SULFAMETHOXAZOLE 93477313997 No Longer Active Erica Gutierrez MD P hD Active PX MULTIVITAMINS 28-0.8 MG TABS Take 1 tablet by mouth daily VIT-FE FUMARATE-FA 92075716774 No Longer Active Erica Gutierrez MD PhD Active PX MULTIVITAMINS 28-0.8 MG TABS Take 1 tablet by mouth daily PX MULTIVITAMINS 28-0.8 MG TABS VIT-FE FUMARATE-FA Inactive TRI-SPRINTEC 0.18/0.215/0.25 MG-35 MCG TABS 1 po qd as directed TRI-SPRINTEC 0.18/0.215/0.25 MG-35 MCG TABS 854983 NORGESTIM-ETH ESTRAD TRIPHASIC Inactive METRONIDAZOLE 250 MG TABS 1 TID METRONIDAZ OLE 250 MG TABS 903084 METRONIDAZOLE Inactive ZOFRAN ODT 4 MG TBDP 1 po q6hr PRN Nausea ZOFRAN ODT 4 MG TBDP 754290 ONDANSETRON Inactive 1 30-0.975-200 MG CAPS 1 qDay 3 1 30-0.975-200 MG CAPS MV-MIN-FE FUM-FA-DHA Inactive BENADRYL 25 MG CAP 25-50 mg po q 4-6 hours PRN BENADRYL 25 MG CAP 5407316 DIPHENHYDRAMINE HCL Inactive LORATADINE 10 MG TABS 1 tablet by mouth daily in the AM LORATADINE 10 MG TABS 198590 LORATADINE Inactive HYDROCODONE-ACETAMINOPHEN 5-325 MG TABS 1 q 4-6 hrs prn HYDROCODONE-ACETAMINOPHEN 5-325 MG TABS 934300 HYDROCODONE-ACETAMIN OPHEN Inactive NEXPLANON 68 MG IMPL replace every 3 years NEXPLA NON 68 MG IMPL ETONOGESTREL Inactive BACTRIM DS 800-160 MG TAB 1 tab by mouth twice daily 2 BACTRIM DS 800-160 MG TAB TRIMETHOPRIM-SULFAMETHOXAZOLE Inac tive NITROFURANTOIN MONOHYD MACRO 100 MG CAPS 1 .bid NITROFURANTOIN MONOHYD MACRO 100 MG CAPS 890011 NITROFURANTOIN MONO HYD MACRO Inactive ZANTAC 150 MG TAB 1 po BID ZANTAC 150 MG TAB 19 8191 RANITIDINE HCL Inactive DIFLUCAN 150 MG TAB 1 qODay x 2 doses DIFLUCAN 150 MG TAB 523673 FLUCONAZOLE Inactive ZITHROMAX 250 MG TAB 2 po today, then 1 po q days 2-5 ZITHROMAX 250 MG TAB 7970976 AZITHROMYCIN Inactive Immunizations Vaccine Administration Date Value [...] W/DIFF - Chemistry sodium, serum 139 mmol/L 044-672 1504/06/11 potassium, serum 4.2 mmol/L 3.5-5.2 chloride, serum [...] Lab Report: HIV-1/HIV-2 AB SCREEN W REFL /[id number], RPR (DX) W/REFL TITER & ... - [...] semiquantitative 6.0 5.0-8.5 Lab Report: [facility] - Chemistry human chorionic gonadotropin , urine, qualitative (urine test) Negative Negative Office Visit: discuss nexplanon - Chemis try human chorionic gonadotropin , urine, qualitative (urine test) Negative Office Visit: nexplanon - Chemistry human chorionic gonadotropin , urine, qualitative (urine test) Negative Encounters Code Encounter Date Provider Facility CPT-49610 Level 3 Est. Patient 17:34:39 CDT Erica del angel MD PhD [facility] CPT-27452 Level 3 Est. Patient 15:37:34 DESIGN ENGINEERING MANAGER Gabrielle Montenegro [facility] CPT-60861 Level 3 Est. Patient 11:00:48 CDT Erica del angel MD PhD [facility] CPT-06705 Level 3 Est. Patient 14:15:09 DESIGN ENGINEERING MANAGER Jair boudreaux [facility] CPT-91158 Level 4 Est. Patient 14:28:18 CDT Erica del angel MD PhD [facility] Procedures Code Procedure Name Date Entry Date Standard Desc ription CPT-OV Office Visit 16:12:37 DESIGN ENGINEERING MANAGER CPT-69930 Nexplanon Placement 06:24:16 CDT CPT-J7307 Nexplanon (Implant) 06:24:16 CDT CPT-OV Office Visit 06:24:16 CDT CPT-12607 UHCG (floor use only) 12:59:32 CDT CPT-OV Office Visit 10:46:11 CDT CPT-64835 Visit 14:16:15 DESIGN ENGINEERING MANAGER CPT-91200 Visit 13:53:01 DESIGN ENGINEERING MANAGER CPT-34378 Visit 18:31:27 DESIGN ENGINEERING MANAGER CPT-39537 Sono OB comp > 14 weeks 17:35:57 DESIGN ENGINEERING MANAGER 06/24 CPT-54475 Tubersol 13:49:34 DESIGN ENGINEERING MANAGER CPT-71548 Administration single or combination vac cine inc oral 13:49:34 DESIGN ENGINEERING MANAGER CPT-62237 TB Tubersol 13:49:34 DESIGN ENGINEERING MANAGER CPT-39092 Visit 11:06:01 DESIGN ENGINEERING MANAGER CPT-48073 Visit 11:47:38 CDT CPT-40157 TB Tubersol 10:44:14 CDT CPT-90990 Visit 15:16:49 CDT CPT-32245 Visit 16:33:29 CDT CPT-37596 Sono OB comp > 14 weeks 11:45:03 CDT 04/23 CPT-17521 Visit 10:03:29 CDT CPT-59428 Visit 10:35:45 CDT CPT-08967 Visit 11:10:45 CDT CPT-06464 Spec Collection and Handling Fee 14:28:18 C DT CPT-54397 Sono OB transvag <14 weeks 14:51:23 CDT 201 09/23/14 CPT-71240 Spec Collection and Handling Fee 11:21:[address] CPT-78748 Visit 11:49:17 DESIGN ENGINEERING MANAGER CPT-54031 Visit 10:55:44 DESIGN ENGINEERING MANAGER CPT-62618 Visit 10:28:35 DESIGN ENGINEERING MANAGER CPT-77830 Visit 09:50:13 DESIGN ENGINEERING MANAGER CPT-32256 Visit 22:07:15 CDT CPT-23509 Visit 09:05:22 CDT CPT-27067 Sono OB comp > 14 weeks 17:37:04 CDT 05/22 CPT-58051 Visit 10:00:01 CDT
--- OUTSIDE RECORDS SUMMARY | 2019-12-06 08:17 | XMS REPORT | Clinical Summary ---
Author Author Admin, Carmella Casarez Organization [facility] Address Unknown Phone Unavailable Allergies, Adverse Reactions, [...] [age] Resolved Erica Gutierrez MD PhD 'Wemjd-byz-ulfsx' without me ntion of malnutrition, unspecified [weight] [...] and vulvovaginitis, unspecified URTICARIA 708.9 Resolved Erica Gutierrze MD PhD Unspecified urticaria SEXUALLY TRANSMITTED DISEASE, [...] Abdominal pain, unspecified site UTI 599.0 Active rEica Gutierrez MD PhD Urinary tract infection, site [...] PhD 201 09/27/23 VAGINITIS ICD-616.10 Inactive Erica Gtuierrez MD P hD URTICARIA ICD-708.9 Inactive Erica [...] 68 MG IMPL every 3 years ETONOGESTREL 27743132 001 Active Marimar Newsome MD Active FLAGYL 500 MG TAB 1 tablet by mouth two times daily 20 29/01/27 METRONIDAZOLE 35372089704 No Longer Active Erica Gutierrez MD PhD Act sirisha CLARITHROMYCIN 500 MG TABS 1 tablet by mouth twice daily CLARITHROMYCIN 01462271909 No Longer Active Erica Gutierrez MD PhD Ac tive PROTONIX 40 MG SOLR 1 po q a.m. PANTOPRAZOLE SO DIUM 53698991157 No Longer Active Erica Gutierrez MD PhD Active BACTRIM DS 800-160 MG TAB 1 tab by mouth twice daily 2 TRIMETHOPRIM-SULFAMETHOXAZOLE 97362124057 No Longer Active Erica Gutierrez MD P hD Active ZITHROMAX 250 MG TAB 2 po today, then 1 po q days 2-5 AZITHROMYCIN 94734560310 No Longer Active Gabrielle Dill APRN Acti ve NEXPLANON 68 MG IMPL replace every 3 years ETON OGESTREL 18986558211 No Longer Active Gabrielle Dill APRN Active HYDROCODONE-ACETAMINOPHEN 5-325 MG TABS 1 q 4-6 hrs prn HYDROCODONE-ACETAMINOPHEN 49653578579 No Longer Active Gabrielle Dill APRN Active DIFLUCAN 150 MG TAB 1 qODay x 2 doses FLUCONAZO LE 44491812610 No Longer Active Erica Gutierrez MD PhD Active LORATADINE 10 MG TABS 1 tablet by mouth daily in the AM LORATADINE 50484180122 No Longer Active Erica Gutierrez MD PhD Acti ve BENADRYL 25 MG CAP 25-50 mg po q 4-6 hours PRN DIPHENHYDRAMINE HCL 81916778581 No Longer Active Erica Gutierrez MD PhD Active 1 30-0.975-200 MG CAPS 1 qDay 3 MV-MIN-FE FUM-FA-DHA 00000063593 No Longer Active Jillina Frazell PROGRAM DIRECTOR/MUSIC DIRECTOR Act sirisha ZANTAC 150 MG TAB 1 po BID RANITIDINE HCL 62432 608949 No Longer Active Erica Gutierrez MD PhD Active ZOFRAN ODT 4 MG TBDP 1 po q6hr PRN Nausea ONDAN SETRON 38934542259 No Longer Active Erica Gutierrez MD PhD Active METRONIDAZOLE 250 MG TABS 1 TID METRONIDAZOL E 30334566926 No Longer Active Erica Gutierrez MD PhD Active NITROFURANTOIN MONOHYD MACRO 100 MG CAPS 1 .bid NITROFURANTOIN MONOHYD MACRO 28433173257 No Longer Active Erica Gutierrez MD PhD Active TRI-SPRINTEC 0.18/0.215/0.25 MG-35 MCG TABS 1 po qd as directed NORGESTIM-ETH ESTRAD TRIPHASIC 50986251369 No Longer Active Erica Gutierrez MD PhD Active BACTRIM DS 800-160 MG TAB 1 tab by mouth twice daily 2 TRIMETHOPRIM-SULFAMETHOXAZOLE 78971821030 No Longer Active Erica Gutierrez MD P Active PX MULTIVITAMINS 28-0.8 MG TABS Take 1 tablet by mouth daily VIT-FE FUMARATE-FA 23411698181 No Longer Active Erica Gutierrez MD PhD Active PX MULTIVITAMINS 28-0.8 MG TABS Take 1 tablet by mouth daily PX MULTIVITAMINS 28-0.8 MG TABS VIT-FE FUMARATE-FA Inactive TRI-SPRINTEC 0.18/0.215/0.25 MG-35 MCG TABS 1 po qd as directed TRI-SPRINTEC 0.18/0.215/0.25 MG-35 MCG TABS 384425 NORGESTIM-ETH ESTRAD TRIPHASIC Inactive METRONIDAZOLE 250 MG TABS 1 TID METRONIDAZ OLE 250 MG TABS 140089 METRONIDAZOLE Inactive ZOFRAN ODT 4 MG TBDP 1 po q6hr PRN Nausea ZOFRAN ODT 4 MG TBDP 002607 ONDANSETRON Inactive 1 30-0.975-200 MG CAPS 1 qDay 3 1 30-0.975-200 MG CAPS MV-MIN-FE FUM-FA-DHA Inactive BENADRYL 25 MG CAP 25-50 mg po q 4-6 hours PRN BENADRYL 25 MG CAP 6508502 DIPHENHYDRAMINE HCL Inactive LORATADINE 10 MG TABS 1 tablet by mouth daily in the AM LORATADINE 10 MG TABS 602941 LORATADINE Inactive HYDROCODONE-ACETAMINOPHEN 5-325 MG TABS 1 q 4-6 hrs prn HYDROCODONE-ACETAMINOPHEN 5-325 MG TABS 635715 HYDROCODONE-ACETAMIN OPHEN Inactive NEXPLANON 68 MG IMPL replace every 3 years NEXPLA NON 68 MG IMPL ETONOGESTREL Inactive BACTRIM DS 800-160 MG TAB 1 tab by mouth twice daily 2 BACTRIM DS 800-160 MG TAB TRIMETHOPRIM-SULFAMETHOXAZOLE Inac tive NITROFURANTOIN MONOHYD MACRO 100 MG CAPS 1 .bid NITROFURANTOIN MONOHYD MACRO 100 MG CAPS 682160 NITROFURANTOIN MONO HYD MACRO Inactive ZANTAC 150 MG TAB 1 po BID ZANTAC 150 MG TAB 19 8191 RANITIDINE HCL Inactive DIFLUCAN 150 MG TAB 1 qODay x 2 doses DIFLUCAN 150 MG TAB 671505 FLUCONAZOLE Inactive ZITHROMAX 250 MG TAB 2 po today, then 1 po q days 2-5 ZITHROMAX 250 MG TAB 9779849 AZITHROMYCIN Inactive BACTRIM DS 800-160 MG TAB 1 tab by mouth twice daily 2 BACTRIM DS 800-160 MG TAB TRIMETHOPRIM-SULFAMETHOXAZOLE Inac tive PROTONIX 40 MG SOLR 1 po q a.m. PROTONIX 40 MG SOLR 266383 PANTOPRAZOLE SODIUM Inactive CLARITHROMYCIN 500 MG TABS 1 tablet by mouth twice daily CLARITHROMYCIN 500 MG TABS 499307 CLARITHROMYCIN Inactive FLAGYL 500 MG TAB 1 tablet by mouth two times daily 20 29/01/27 FLAGYL 500 MG TAB 777865 METRONIDAZOLE Inactive Immunizations Vaccine Administration Date Value [...] Value Unit Range Description Lab Report: Chlamydia/GC APTIMA/88482 - Lab chlamydia DNA probe NOT DETECTED NOT DETECTED Lab Report: Chlamydia/GC APTIMA/[id number] - Microbiology Neisseria gonorrhoeae DNA probe NOT DETECTED NO T DETECTED Lab Report: H. Pylori, Comp. Metabolic P jared, CBC W/DIFF - Chemistry sodium, serum 139 mmol/L 471-872 5563/06/11 potassium, serum 4.2 mmol/L 3.5-5.2 chloride, serum [...] ative Encounters Code Encounter Date Provider Facility CPT-62502 Level 3 Est. Patient 17:34:39 CDT Erica del angel MD PhD [facility] CPT-78488 Level 3 Est. Patient 15:37:34 IDENTITY MANAGEMENT DEVELOPER Gabrielle Montenegro [facility] CPT-02395 Level 3 Est. Patient 11:00:48 CDT Erica del angel MD PhD [facility] CPT-90792 Level 3 Est. Patient 14:15:09 IDENTITY MANAGEMENT DEVELOPER Jair boudreaux [facility] CPT-79853 Level 4 Est. Patient 14:28:18 CDT Erica del angel MD PhD [facility] Procedures Code Procedure Name Date Entry Date Standard Desc ription CPT-OV Office Visit 15:00:46 CDT CPT-OV Office Visit 16:12:37 IDENTITY MANAGEMENT DEVELOPER CPT-66113 Nexplanon Placement 06:24:16 CDT CPT-J7307 Nexplanon (Implant) 06:24:16 CDT CPT-OV Office Visit 06:24:16 CDT CPT-09806 UHCG (floor use only) 12:59:32 CDT CPT-OV Office Visit 10:46:11 CDT CPT-31789 Visit 14:16:15 IDENTITY MANAGEMENT DEVELOPER CPT-17077 Visit 13:53:01 IDENTITY MANAGEMENT DEVELOPER CPT-90998 Visit 18:31:27 IDENTITY MANAGEMENT DEVELOPER CPT-07581 Sono OB comp > 14 weeks 17:35:57 IDENTITY MANAGEMENT DEVELOPER 06/24 CPT-52797 Tubersol 13:49:34 IDENTITY MANAGEMENT DEVELOPER CPT-89099 Administration single or combination vac cine inc oral 13:49:34 IDENTITY MANAGEMENT DEVELOPER CPT-69042 TB Tubersol 13:49:34 IDENTITY MANAGEMENT DEVELOPER CPT-58909 Visit 11:06:01 IDENTITY MANAGEMENT DEVELOPER CPT-83868 Visit 11:47:38 CDT CPT-17497 TB Tubersol 10:44:14 CDT CPT-56321 Visit 15:16:49 CDT CPT-82655 Visit 16:33:29 CDT CPT-89697 Sono OB comp > 14 weeks 11:45:03 CDT 04/23 CPT-40359 Visit 10:03:29 CDT CPT-31886 Visit 10:35:45 CDT CPT-23223 Visit 11:10:45 CDT CPT-84516 Spec Collection and Handling Fee 14:28:18 C DT CPT-18612 Sono OB transvag <14 weeks 14:51:23 CDT 201 09/23/14 CPT-53750 Spec Collection and Handling Fee 11:21:[address] CPT-28597 Visit 11:49:17 IDENTITY MANAGEMENT DEVELOPER CPT-17496 Visit 10:55:44 IDENTITY MANAGEMENT DEVELOPER CPT-60898 Visit 10:28:35 IDENTITY MANAGEMENT DEVELOPER CPT-02619 Visit 09:50:13 IDENTITY MANAGEMENT DEVELOPER CPT-48894 Visit 22:07:15 CDT CPT-00823 Visit 09:05:22 CDT CPT-69303 Sono OB comp > 14 weeks 17:37:04 CDT 05/22 CPT-48464 Visit 10:00:01 CDT
--- OUTSIDE RECORDS SUMMARY | 2019-12-06 08:18 | XMS REPORT | Continuity of Care Document ---
Author Organization Unknown Address Unknown Phone Unavailable Allergies Active Description Code Type Severity Reaction Onset Reported/Identified Relationship to Patient Clinical Status Yes Penicillins [id number] Drug Aller gy Severe ANAPHYLAXIS 12/01/2019 Medications There is no data. Problems Date Dx Coded Attending Type Code Diagnosis Diagnosed By 07/14/2019 PATTY RESTREPOP Ot J32.0 CHRONIC MAXILLARY SINUSITIS 07/19/2019 PATTY RESTREPOP Ot J32.0 CHRONIC MAXILLARY SINUSITIS 08/03/2019 PATTY RESTREPO SENIOR SEARCH MARKETING ANALYST Ot J32.0 CHRONIC MAXILLARY SINUSITIS 09/17/2019 PATTY RESTREPO SENIOR SEARCH MARKETING ANALYST Ot J32.0 CHRONIC MAXILLARY SINUSITIS 11/29/2019 PATTY RESTREPO SENIOR SEARCH MARKETING ANALYST Ot J32.0 CHRONIC MAXILLARY SINUSITIS 11/30/2019 DESTIN SOMERS DRILLING SUPERINTENDENT Ot R10.84 GENERALIZED ABDOMINAL PAIN 11/30/2019 DESTIN SOMERS DRILLING SUPERINTENDENT Ot R11.2 NAUSEA WITH VOMITING, UNSPECIFIED 11/30/2019 DESTIN SOMERS DRILLING SUPERINTENDENT Ot R19.7 DIARRHEA, UNSPECIFIED 12/02/2019 DEONTE PITTMAN DO Ot Z01.8 18 ENCOUNTER FOR OTHER PREPROCEDURAL EXAMIN Procedures There is no data. Results Test Result Range GC/CHLAMYDIA (SWAB OR URINE)-RAPID - 18:00 CHLAMYDIA TRACHOMATIS RNA, TMA NOT DETECTED NOT DETECTED NEISSERIA GONORRHOEAE RNA, TMA NOT DETECTED NOT DETECTED COMMENT NRG SUREPATH PAP RFX HPV mRNA E6/E7 - 18:00 CLINICAL INFORMATION: NRG LMP: 02/15/2019 NRG PREV. PAP: NRG PREV. BX: NO NRG SOURCE: Cervix NRG STATEMENT OF ADEQUACY: NRG INTERPRETATION/RESULT: NRG SUPERVISOR INVENTORY MERCHANDISING: NRG INFECTION: NRG PATHOLOGIST: NRG COMMENT NRG CULTURE, URINE - 05/04/19 08:25 CULTURE, URINE, ROUTINE SEE NOTE NRG LIPID PANEL - 06/29/19 10:42 CHOLESTEROL, TOTAL 152 mg/dL <200 HDL CHOLESTEROL 37 mg/dL >50 TRIGLYCERIDES 307 mg/dL <150 LDL-CHOLESTEROL 78 mg/dL (calc) NRG CHOL/HDLC RATIO 4.1 (calc) <5.0 NON HDL CHOLESTEROL 115 mg/dL (calc) <13 0 GLUCOSE, SERUM - 06/29/19 10:42 GLUCOSE 82 mg/dL 65-99 TSH w/ FREE T4 - 08/25/19 17:01 TSH 1.50 mIU/L NRG T4, FREE 1.0 ng/dL 0.8-1.8 GC/CHLAMYDIA (SWAB OR URINE)-RAPID - 12/05 16:34 CHLAMYDIA TRACHOMATIS RNA, TMA NOT DETECTED NOT DETECTED NEISSERIA GONORRHOEAE RNA, TMA NOT DETECTED NOT DETECTED COMMENT NRG CULTURE, URINE - 09/21/19 16:35 CULTURE, URINE, ROUTINE SEE NOTE NRG CMP - 11/25/19 12:07 GLUCOSE 86 mg/dL 65-99 UREA NITROGEN (BUN) 17 mg/dL 7-25 CREATININE 0.74 mg/dL 0.50-1.10 eGFR NON-AFR. LAO 113 mL/min/1.73m2 > OR = 60 eGFR 130 mL/min/1.73m2 > OR = 60 BUN/CREATININE RATIO NOT APPLICABLE (calc) 6-22 SODIUM 139 mmol/L 135-146 POTASSIUM 4.2 mmol/L 3.5-5.3 CHLORIDE 106 mmol/L 98-110 CARBON DIOXIDE 26 mmol/L 20-32 CALCIUM 9.5 mg/dL 8.6-10.2 PROTEIN, TOTAL 7.0 g/dL 6.1-8.1 ALBUMIN 4.1 g/dL 3.6-5.1 GLOBULIN 2.9 g/dL (calc) 1.9-3.7 ALBUMIN/GLOBULIN RATIO 1.4 (calc) 1.0-2. 5 BILIRUBIN, TOTAL 0.3 mg/dL 0.2-1.2 ALKALINE PHOSPHATASE 69 U/L 31-125 AST 22 U/L 10-30 ALT 31 U/L 6-29 CBC w/MANUAL DIFF - 11/25/19 12:07 WHITE BLOOD CELL COUNT 7.7 Thousand/uL 3 .8-10.8 RED BLOOD CELL COUNT 4.48 Million/uL 3.8 0-5.10 HEMOGLOBIN 13.5 g/dL 11.7-15.5 HEMATOCRIT 40.5 % 35.0-45.0 MCV 90.4 fL 80.0-100.0 MCH 30.1 pg 27.0-33.0 MCHC 33.3 g/dL 32.0-36.0 RDW 12.9 % 11.0-15.0 PLATELET COUNT 272 Thousand/uL 140-400 MPV 9.6 fL 7.5-12.5 ABSOLUTE NEUTROPHILS 4389 cells/uL 1500- 7800 ABSOLUTE MONOCYTES 385 cells/uL 200-950 ABSOLUTE EOSINOPHILS 385 cells/uL 15-500 ABSOLUTE BASOPHILS 77 cells/uL 0-200 NEUTROPHILS 57.0 % NRG LYMPHOCYTES 32.0 % NRG MONOCYTES 5.0 % NRG EOSINOPHILS 5.0 % NRG BASOPHILS 1.0 % NRG ABSOLUTE LYMPHOCYTES 2464 cells/uL 850-3 900 PLATELET ESTIMATION ADEQUATE ADEQUATE COMMENT(S) NRG LIPASE - 11/25/19 12:07 LIPASE 33 U/L 7-60 AMYLASE - 11/25/19 12:07 AMYLASE 56 U/L 21-101 Encounters ACCT No. Visit Date/Time Discharge Status Pt. Type Provider Facility Loc./Unit Complaint [id number] 10/26/2019 07:40:00 10/26/2019 23:59: 59 CLS Outpatient MARC RESTREPO [facility] [id number] 11/25/2019 10:00:00 Document Registration [id number] 09/21/2019 16:40:00 Document Registration [id number] 08/25/2019 16:00:00 Document Registration [id number] 06/29/2019 10:30:00 Document Registration [id number] 05/04/2019 07:40:00 Document Registration [id number] 03/02/2019 16:40:00 Document Registration [id number] 12/01/2019 09:07:00 020 10:15:00 DIS Outpatient DEONTE PITTMAN DO [facility] PREOP EGD/COLONOSCOPY [id number] 11/29/2019 10:33:00 020 23:59:59 CLS Outpatient DESTIN SOMERS APRN [facility] RAD FS DIARRHEA,GENERA LIZED ABD PAIN,NAUSEA [id number] 06/30/2019 13:33:00 019 23:59:59 CLS Outpatient PATTY RESTREPO [facility] RAD NEW ONSET HEADACHE [id number] 12/06/2019 09:30:00 P EN Preadmit DEONTE PITTMAN DO [facility] ENDO ABD PAIN, N/V, RECTAL BLEEDI [id number] 09/21/2017 10:06:30 ACT Unknown
--- OUTSIDE RECORDS SUMMARY | 2019-12-06 08:18 | XMS REPORT | Clinical Summary ---
Author Author Admin, Carmella Casarze Organization [facility] Address Unknown Phone Unavailable Allergies, Adverse [...] AGE 89.00 Resolved Erica Gutierrez MD PhD '[id number]' without me ntion of malnutrition, unspecified [weight] [...] Inactive Erica Gutierrez MD PhD UTI ICD-599.0 Marques Gutierrez MD PhD 201 09/27/23 VAGINITIS ICD-616.10 Inactive Erica Gutierrez MD P hD URTICARIA ICD-708.9 Marques [...] mouth two times daily 20 29/01/27 METRONIDAZOLE [id number] No Longer Active Erica Gutierrez MD PhD Act sirisha CLARITHROMYCIN 500 MG TABS 1 tablet by mouth twice daily CLARITHROMYCIN 16889093806 No Longer Active Erica Gutierrez MD PhD Ac tive PROTONIX 40 MG SOLR 1 po q a.m. PANTOPRAZOLE SO DIUM 58510474876 No Longer Active Erica Gutierrez MD PhD Active BACTRIM DS 800-160 MG TAB 1 tab by mouth twice daily 2 TRIMETHOPRIM-SULFAMETHOXAZOLE 72273614892 No Longer Active Erica Gutierrez MD P hD Active ZITHROMAX 250 MG TAB 2 po today, then 1 po q days 2-5 AZITHROMYCIN 56975401379 No Longer Active Gabrielle Dill APRN Acti ve NEXPLANON 68 MG IMPL replace every 3 years ETON OGESTREL 07595764975 No Longer Active Gabrielle Dill APRN Active HYDROCODONE-ACETAMINOPHEN 5-325 MG TABS 1 q 4-6 hrs prn HYDROCODONE-ACETAMINOPHEN 70383711184 No Longer Active Gabrielle Dill APRN Active DIFLUCAN 150 MG TAB 1 qODay x 2 doses FLUCONAZO LE 91829089622 No Longer Active Erica Gutierrez MD PhD Active LORATADINE 10 MG TABS 1 tablet by mouth daily in the AM LORATADINE 22701591328 No Longer Active Erica Gutierrez MD PhD Acti ve BENADRYL 25 MG CAP 25-50 mg po q 4-6 hours PRN DIPHENHYDRAMINE HCL 92033165260 No Longer Active Erica Gutierrez MD PhD Active 1 30-0.975-200 MG CAPS 1 qDay 3 MV-MIN-FE FUM-FA-DHA 60573416869 No Longer Active Jair Paez PRINTING SPECIALIST Act sirisha ZANTAC 150 MG TAB 1 po BID RANITIDINE HCL 34249 022821 No Longer Active Erica Gutierrez MD PhD Active ZOFRAN ODT 4 MG TBDP 1 po q6hr PRN Nausea ONDAN SETRON 44954403461 No Longer Active Erica Gutierrez MD PhD Active METRONIDAZOLE 250 MG TABS 1 TID METRONIDAZOL E 85462177105 No Longer Active Erica Gutierrez MD PhD Active NITROFURANTOIN MONOHYD MACRO 100 MG CAPS 1 .bid NITROFURANTOIN MONOHYD MACRO 51577589247 No Longer Active Erica Gutierrez MD PhD Active TRI-SPRINTEC 0.18/0.215/0.25 MG-35 MCG TABS 1 po qd as directed NORGESTIM-ETH ESTRAD TRIPHASIC 41823257562 No Longer Active Erica Gutierrez MD PhD Active BACTRIM DS 800-160 MG TAB 1 tab by mouth twice daily 2 TRIMETHOPRIM-SULFAMETHOXAZOLE 11549571561 No Longer Active Erica Gutierrez MD P hD Active PX MULTIVITAMINS 28-0.8 MG TABS Take 1 tablet by mouth daily VIT-FE FUMARATE-FA 93535626899 No Longer Active Erica Gutierrez MD PhD Active PX MULTIVITAMINS 28-0.8 MG TABS Take 1 tablet by mouth daily PX MULTIVITAMINS 28-0.8 MG TABS VIT-FE FUMARATE-FA Inactive TRI-SPRINTEC 0.18/0.215/0.25 MG-35 MCG TABS 1 po qd as directed TRI-SPRINTEC 0.18/0.215/0.25 MG-35 MCG TABS 284873 NORGESTIM-ETH ESTRAD TRIPHASIC Inactive METRONIDAZOLE 250 MG TABS 1 TID METRONIDAZ OLE 250 MG TABS 815433 METRONIDAZOLE Inactive ZOFRAN ODT 4 MG TBDP 1 po q6hr PRN Nausea ZOFRAN ODT 4 MG TBDP 587772 ONDANSETRON Inactive 1 30-0.975-200 MG CAPS 1 qDay 3 1 30-0.975-200 MG CAPS MV-MIN-FE FUM-FA-DHA Inactive BENADRYL 25 MG CAP 25-50 mg po q 4-6 hours PRN BENADRYL 25 MG CAP 0515363 DIPHENHYDRAMINE HCL Inactive LORATADINE 10 MG TABS 1 tablet by mouth daily in the AM LORATADINE 10 MG TABS 421153 LORATADINE Inactive HYDROCODONE-ACETAMINOPHEN 5-325 MG TABS 1 q 4-6 hrs prn HYDROCODONE-ACETAMINOPHEN 5-325 MG TABS 515729 HYDROCODONE-ACETAMIN OPHEN Inactive NEXPLANON 68 MG IMPL replace every 3 years NEXPLA NON 68 MG IMPL ETONOGESTREL Inactive BACTRIM DS 800-160 MG TAB 1 tab by mouth twice daily 2 BACTRIM DS 800-160 MG TAB TRIMETHOPRIM-SULFAMETHOXAZOLE Inac tive NITROFURANTOIN MONOHYD MACRO 100 MG CAPS 1 .bid NITROFURANTOIN MONOHYD MACRO 100 MG CAPS 857779 NITROFURANTOIN MONO HYD MACRO Inactive ZANTAC 150 MG TAB 1 po BID ZANTAC 150 MG TAB 19 8191 RANITIDINE HCL Inactive DIFLUCAN 150 MG TAB 1 qODay x 2 doses DIFLUCAN 150 MG TAB 536098 FLUCONAZOLE Inactive ZITHROMAX 250 MG TAB 2 po today, then 1 po q days 2-5 ZITHROMAX 250 MG TAB 6778734 AZITHROMYCIN Inactive BACTRIM DS 800-160 MG TAB 1 tab by mouth twice daily 2 BACTRIM DS 800-160 MG TAB TRIMETHOPRIM-SULFAMETHOXAZOLE Inac tive PROTONIX 40 MG SOLR 1 po q a.m. PROTONIX 40 MG SOLR 277246 PANTOPRAZOLE SODIUM Inactive CLARITHROMYCIN 500 MG TABS 1 tablet by mouth twice daily CLARITHROMYCIN 500 MG TABS 258476 CLARITHROMYCIN Inactive FLAGYL 500 MG TAB 1 tablet by mouth two times daily 20 29/01/27 FLAGYL 500 MG TAB 084443 METRONIDAZOLE Inactive Immunizations Vaccine Administration Date Value [...] W/DIFF - Chemistry sodium, serum 139 mmol/L 056-561 5590/06/11 potassium, serum 4.2 mmol/L 3.5-5.2 chloride, serum [...] 5.0-8.5 Encounters Code Encounter Date Provider Facility CPT-05872 Level 3 Est. Patient 17:34:39 CDT Erica del angel MD PhD [facility] CPT-72067 Level 3 Est. Patient 15:37:34 INTEGRATION CONSULTANT Gabrielle Montenegro [facility] CPT-15307 Level 3 Est. Patient 11:00:48 CDT Erica del angel MD PhD [facility] CPT-26734 Level 3 Est. Patient 14:15:09 INTEGRATION CONSULTANT Jair boudreaux [facility] CPT-10859 Level 4 Est. Patient 14:28:18 CDT Erica del angel MD PhD [facility] Procedures Code Procedure Name Date Entry Date Standard Desc ription CPT-OV Office Visit 16:12:37 INTEGRATION CONSULTANT CPT-37390 Nexplanon Placement 06:24:16 CDT CPT-J7307 Nexplanon (Implant) 06:24:16 CDT CPT-OV Office Visit 06:24:16 CDT CPT-12119 UHCG (floor use only) 12:59:32 CDT CPT-OV Office Visit 10:46:11 CDT CPT-68984 Visit 14:16:15 INTEGRATION CONSULTANT CPT-14583 Visit 13:53:01 INTEGRATION CONSULTANT CPT-28232 Visit 18:31:27 INTEGRATION CONSULTANT CPT-94692 Sono OB comp > 14 weeks 17:35:57 INTEGRATION CONSULTANT 06/24 CPT-42654 Tubersol 13:49:34 INTEGRATION CONSULTANT CPT-40310 Administration single or combination vac cine inc oral 13:49:34 INTEGRATION CONSULTANT CPT-46331 TB Tubersol 13:49:34 INTEGRATION CONSULTANT CPT-13570 Visit 11:06:01 INTEGRATION CONSULTANT CPT-07624 Visit 11:47:38 CDT CPT-26995 TB Tubersol 10:44:14 CDT CPT-94578 Visit 15:16:49 CDT CPT-87385 Visit 16:33:29 CDT CPT-37313 Sono OB comp > 14 weeks 11:45:03 CDT 04/23 CPT-70499 Visit 10:03:29 CDT CPT-59131 Visit 10:35:45 CDT CPT-80891 Visit 11:10:45 CDT CPT-09558 Spec Collection and Handling Fee 14:28:18 C DT CPT-06831 Sono OB transvag <14 weeks 14:51:23 CDT 201 09/23/14 CPT-54997 Spec Collection and Handling Fee 11:21:[address] CPT-78403 Visit 11:49:17 INTEGRATION CONSULTANT CPT-45378 Visit 10:55:44 INTEGRATION CONSULTANT CPT-48020 Visit 10:28:35 INTEGRATION CONSULTANT CPT-63047 Visit 09:50:13 INTEGRATION CONSULTANT CPT-09130 Visit 22:07:15 CDT CPT-85781 Visit 09:05:22 CDT CPT-26771 Sono OB comp > 14 weeks 17:37:04 CDT 05/22 CPT-56467 Visit 10:00:01 CDT
[2019-12-06] MEDS ORDERED: proPOfol 200 MG/20 ML (DIPRIVAN) VIAL IV ONE (08:43)
[2019-12-06] MEDS ORDERED: MIDAZOLAM 2 MG/2 ML (VERSED) VIAL ONE (08:43)
[2019-12-06] MEDS ORDERED: KETAMINE/NaCl 50 MG/5 ML SYRINGE (ED ONLY) ONE (08:44)
--- NOTE | 2019-12-06 09:17 | Progress Note-Pre Operative ---
Pre-Operative Progress Note H&P Reviewed The H&P was reviewed, patient examined and no changes noted. Time Seen by Provider: 09:11 Date H&P Reviewed: Dec 06, 2019 Time H&P Reviewed: 09:12 Pre-Operative Diagnosis: Intractable Nausea, Diarrhea, Rectal bleed, Family hx of colon CA DEONTE PITTMAN DO Dec 06, 2019 09:17
[2019-12-06 09:50] VITALS: BP 132/65
[2019-12-06 09:55] VITALS: BP 126/63
--- NOTE | 2019-12-06 09:57 | Anesthesia-General Post-Op ---
MAC Patient Condition Mental Status/LOC: Same as Preop Cardiovascular: Satisfactory Nausea/Vomiting: Absent Respiratory: Satisfactory Pain: Controlled Complications: Absent Post Op Complications Complications None Follow Up Care/Instructions Patient Instructions None needed. Anesthesiology Discharge Order Discharge Order Patient is doing well, no complaints, stable vital signs, no apparent adverse anesthesia problems. KEO CHENG DO Dec 06, 2019 09:57
--- NOTE | 2019-12-06 10:03 | Progress Note-Post Operative ---
Post-Operative Progess Note Surgeon (s)/Religion Instructor (s) Surgeon DEONTE PITTMAN DO Religion Instructor: none Pre-Operative Diagnosis Intractable Nausea, Diarrhea, Rectal bleed, Family hx of colon CA Post-Operative Diagnosis Same plus Gastritis and Internal Hemorrhoids Procedure & Operative Findings Date of Procedure 12/06/19 Procedure Performed/Findings EGD with bx Colon with bx Anesthesia Type IV sedation by Anesthesia Estimated Blood Loss Estimated blood loss (mL): scant Specimens/Packing Specimens Removed Antral bx Body of stomach bx GE jxn bx TI bx Random colon bx DEONTE PITTMAN DO Dec 06, 2019 10:03
[2019-12-06 10:05] VITALS: BP 126/63
--- NOTE | 2019-12-06 10:05 | Endoscopy Discharge Instruct ---
Endo Procedure/Findings Findings 1.: Gastritis 2.: Internal Hemorrhoids Discharge Instructions - Activity: You might feel a little sleepy until tomorrow. This is due to the medicine you received to relax you. Until tomorrow, you should: NOT drive a car, operate machinery or power tools. NOT drink any alcoholic beverages. NOT make any important decisions or sign importortant papers. Do not return to work until tomorrow, unless otherwise instructed. Resume previous activities tomorrow. Diet: Start by taking liquids. If you tolerate liquids, advance to solid food. make an appointment for one week 1.: Colonscopy in 10 years, EGD in 3 years Notify Physician - If you experience excessive bleeding, unusual abdominal pain, fever, or chest pain, contact your doctor immediately. DEONTE PITTMAN DO Dec 06, 2019 10:04
[2019-12-06 10:29] VITALS: BP 108/72
--- NOTE | 2019-12-06 11:01 | OPERATIVE REPORT ---
DATE OF SERVICE: 12/06/2019 PREOPERATIVE DIAGNOSES: Intractable nausea with some vomiting, rectal bleed, chronic diarrhea, and strong family history of colon cancer. POSTOPERATIVE DIAGNOSES: Intractable nausea with some vomiting, rectal bleed, chronic diarrhea, strong family history of colon cancer, gastritis, and internal hemorrhoids. PROCEDURES: 1. EGD with biopsy. 2. Colonoscopy with biopsy. SURGEON: Homero Kunz DO. ZYGLO INSPECTOR: None. ANESTHESIA: IV sedation by the anesthesiologist. SPECIMEN: Biopsy from the antrum, biopsy of body of stomach, biopsy of the GE junction as well as biopsy of terminal ileum and then random biopsies from the colon. BLOOD LOSS: Scant. FLUIDS: Per anesthesia. POSTOPERATIVE CONDITION: Stable. INDICATION FOR PROCEDURE: The patient is a 24-year-old female who has been having chronic nausea that has been intractable with some vomiting. She has also had chronic diarrhea and had episode of rectal bleeding, which she has a strong family history of colon cancer. FINDINGS: The patient had some gastritis and some internal hemorrhoids, did not see any other obvious pathology. PROCEDURE NOTE: After informed consent was obtained, the patient was brought to the endoscopy suite, placed in bed in left lateral decubitus position. She was administered IV sedation by the anesthesiologist who then monitored her vitals the entire time, heart rate, blood pressure and pulse ox and the scope was inserted, started with the EGD, placing scope down the mouth through the esophagus and into the stomach. Upon entering the stomach, noted some gastritis and even some petechia of blood. Pushed into the duodenum, this looked fine, took a picture of duodenum, pulled back, took a picture of the antrum and then did a biopsy of the antrum. Retroflexed the scope. The patient did not really have a hiatal hernia. I did a biopsy of body of the stomach and then pulled the scope into the esophagus and did a biopsy of the GE junction. Pushed the scope back in, suctioned all the air out and then pulled the scope up the esophagus and out the mouth. Switched the camera, switched gloves, went down below, started the colonoscopy, pushed in all the way about 130 cm, able to get to the cecum, took a picture of appendiceal orifice and then able to get into the terminal ileum and elected to do a biopsy here because of her history of diarrhea and then slowly withdrew the scope insufflating to look circumferentially at the nicolas looking the cecum, up the ascending colon to the hepatic flexure, then down the transverse colon, splenic flexure, into the descending colon and down the sigmoid and finally into the rectum. Throughout here, did 3 or 4 random biopsies in the rectum, retroflexed in the rectal vault, took a picture of some very small internal hemorrhoids. These may have been the cause of bleeding, did not see any other obvious pathology and at this point then removed the scope. The patient tolerated the procedure, recovered in endoscopy suite. Job ID: [id number] DocumentID: [id number] Dictated Date: 12/06/2019 10:14:03 Header Up Date: 12/06/2019 11:00:58 Dictated By: HOMERO KUNZ DO
== END 2019-12-06 10:40 | disposition home or self-care (01) ==
LOC: ENDO 07:48
PROVIDERS: ATTEND Surgery
DX: K62.5 Hemorrhage of anus and rectum (principal); K29.50 Unspecified chronic gastritis without bleeding; K52.9 Noninfective gastroenteritis and colitis, unspecified; K64.8 Other hemorrhoids; K31.89 Other diseases of stomach and duodenum; K63.89 Other specified diseases of intestine; K22.8 Other specified diseases of esophagus; K21.9 Gastro-esophageal reflux disease without esophagitis; F32.9 Major depressive disorder, single episode, unspecified; Z79.899 Other long term (current) drug therapy; Z98.51 Tubal ligation status; Z90.49 Acquired absence of other specified parts of digestive tract; Z88.0 Allergy status to penicillin; Z87.891 Personal history of nicotine dependence; Z83.3 Family history of diabetes mellitus; Z80.0 Family history of malignant neoplasm of digestive organs; Z83.6 Family history of other diseases of the respiratory system

== ENCOUNTER 2021-10-05 08:44 | Outpatient (CLI) | payer MEDICAID | END 2021-10-05 09:09 | disposition home or self-care (01) | LOC: SLEEP 08:44 | PROVIDERS: ATTEND Nurse Practitioner Family | DX: G47.10 Hypersomnia, unspecified (principal) | CPT/HCPCS: G0399 ==

== ENCOUNTER → 2022-02-11 | Outpatient (CLI) | payer MEDICAID ==
--- NOTE | 2022-02-11 15:57 | Diagnostic Imaging Report ---
PROCEDURE: CT sinuses without contrast TECHNIQUE: Multiple contiguous axial images were obtained through the sinuses without the use of intravenous contrast. Coronal and sagittal reformations were then performed. Auto Exposure Controls were utilized during the CT exam to meet ALARA standards for radiation dose reduction. INDICATION: Chronic sinusitis. COMPARISON: None. FINDINGS: Mild mucosal thickening in the floor of the maxillary sinuses. The paranasal sinuses are otherwise clear. The ostiomeatal units and frontal recesses are patent. Midline nasal septum. No large bharti bullosa. The mastoids and middle ears are clear. No fractures. The visualized intracranial contents and orbits are unremarkable. IMPRESSION: Mild mucosal thickening in the floor of the maxillary sinuses. The paranasal sinuses are otherwise clear. Dictated by: Dictated on workstation # [id number]
== END ==
LOC: RAD FS 14:41
PROVIDERS: ATTEND Otolaryngology Otolaryngology/Facial Plastic Surgery
DX: J32.0 Chronic maxillary sinusitis (principal)
CPT/HCPCS: 70486

== ENCOUNTER → 2022-08-20 | Outpatient (CLI) | payer MEDICAID ==
[~2022-08-20] VITALS: Ht 167.7 cm; Wt 90.0 kg
[~2022-08-20] MED LIST changes: +CETI10TA49 PO; +CITA20TA9 PO; +FLUT9.9S NS; +METF500S7 PO; +MONT10TA21 PO; +PANT40TA52 PO; +RT-ALBUINH INH
== END | disposition home or self-care (01) ==
LOC: PREOP 05:28
PROVIDERS: ATTEND Obstetrics & Gynecology
DX: Z01.818 Encounter for other preprocedural examination (principal)

== ENCOUNTER 2022-08-26 06:11 | Day surgery (SDC) | payer MEDICAID ==
[2022-08-26] VITALS (13 sets, daily range): BP systolic 103–120; BP diastolic 55–78
[~2022-08-26] VITALS: Ht 167 cm; Wt 90.0 kg
[2022-08-26] MEDS ORDERED: CLINDAMYCIN 900 MG/50 ML IVPB 50 ML IV ONE (06:30)
[2022-08-26] MEDS ORDERED: metroNIDAZOLE 500MG/100ML IVPB 100 ML IV ONE (06:30)
[2022-08-26] MEDS: LACTATED RINGERS 1,000 ML IV PRN ×2 (06:40→07:30)
[2022-08-26] MEDS ORDERED: BUP/EPI 0.25% 1:200,000 (MARCAINE) 30 ML VIAL ONE (06:41)
[2022-08-26] MEDS ORDERED: ONDANSETRON 4 MG/2 ML (SDV) Z0FRAN ONE (06:49)
[2022-08-26] MEDS ORDERED: SEVOFLURANE (ULTANE) 15 ML INHAL SOLN ONE ×2 (06:49→08:43)
[2022-08-26] MEDS ORDERED: MIDAZOLAM 2 MG/2 ML (VERSED) VIAL ONE (06:49)
[2022-08-26] MEDS ORDERED: fentaNYL INJ 100 MCG/2 ML AMP ONE (06:49)
[2022-08-26] MEDS ORDERED: proPOfol 200 MG/20 ML (DIPRIVAN) VIAL IV ONE (06:49)
[2022-08-26] MEDS ORDERED: LIDOCAINE PF 2% 5 ML (XYLOCAINE) VIAL ONE (06:49)
[2022-08-26] MEDS ORDERED: ROCURONIUM 50 MG/5 ML (ZEMURON) VIAL IV ONE (06:53)
[2022-08-26 06:55] LABS: BASOPHILS # (AUTO) 0.1 10^3/uL (0.0-0.1); BASOPHILS % (AUTO) 1 % (0-10); EOSINOPHILS # (AUTO) 0.9 10^3/uL (0.0-0.3); EOSINOPHILS % (AUTO) 8 % (0-10); HEMATOCRIT 40 % (35-52); HEMOGLOBIN 13.3 g/dL (11.5-16.0); LYMPHOCYTES # (AUTO) 2.8 10^3/uL (1.0-4.0); LYMPHOCYTES % (AUTO) 26 % (12-44); MEAN CORPUSCULAR HEMOGLOBIN 30 pg (25-34); MEAN CORPUSCULAR HGB CONC 34 g/dL (32-36); MEAN CORPUSCULAR VOLUME 89 fL (80-99); MONOCYTES # (AUTO) 0.7 10^3/uL (0.0-1.0); MONOCYTES % (AUTO) 7 % (0-12); NEUTROPHILS # (AUTO) 6.3 10^3/uL (1.8-7.8); NEUTROPHILS % (AUTO) 58 % (42-75); PLATELET COUNT 278 10^3/uL (130-400); WHITE BLOOD COUNT 10.9 10^3/uL (4.3-11.0)
--- NOTE | 2022-08-26 07:08 | History & Physical-Surgical ---
HPO-Surgical History of Present Illness Chief Complaint: Abnormal pap smears Diagnosis/Surgical Indication: HIGH GRADE CERVICAL DYSPLASIA Procedure: RATLH WITH POSSIBLE BSO Date of Surgery: Aug 26, 2022 Allergies and Home Medications Allergies Coded Allergies: Penicillins (Verified Allergy, Severe, ANAPHYLAXIS, 08/20/22) Patient Home Medication List Home Medication List Reviewed: Yes Albuterol Sulfate (Ventolin Hfa) 1 Puff Puff, 2 PUFF INH Q4H PRN for PRN, (Reported) Entered as Reported by: MINI FULLER on 08/20/221150 Bupropion HCl (Bupropion HCl) 75 Mg Tablet, 75 MG PO DAILY, (Reported) Entered as Reported by: MIKE DALE on 12/01/19 1012 Last Action: Last Taken Edited Cetirizine HCl (Zyrtec) 10 Mg Tablet, 10 MG PO DAILY, (Reported) Entered as Reported by: MINI FULLER on 08/20/221150 Last Action: Last Taken Edited Citalopram Hydrobromide (Citalopram HBr) 20 Mg Tablet, 20 MG PO DAILY, (Reported) Entered as Reported by: MINI FULLER on 08/20/221150 Last Action: Last Taken Edited Fluticasone Propionate (Flonase Allergy Relief) 50 Mcg/Actuation [place].susp, 1 SPRAY NS DAILY, (Reported) Entered as Reported by: MINI FULELR on 08/20/221150 Metformin HCl (Metformin HCl) 500 Mg/5 Ml Solution, 1,000 MG PO DAILY, (Reported) Entered as Reported by: MINI FULLER on 08/20/221150 Last Action: Last Taken Edited Montelukast Sodium (Singulair) 10 Mg Tablet, 10 MG PO, (Reported) Entered as Reported by: MINI FULLER on 08/20/221150 Last Action: Last Taken Edited Pantoprazole Sodium (Pantoprazole Sodium) 40 Mg Tablet.dr, 40 MG PO DAILY, (Reported) Entered as Reported by: MINI FULLER on 08/20/221150 Last Action: Last Taken Edited Past Cncrgci-Pyziob-Yqncxv Hx Patient Social History Smoking Status: Current Everyday Smoker Former Smoker, Quit: Nov 30, 2017 2nd Hand Smoke Exposure: Yes Recent Hopitalizations: No Immunizations Up To Date Date of Influenza Vaccine: May 24, 2022 Seasonal Allergies Seasonal Allergies: Yes Surgeries Yes Gallbladder, Tubal Ligation Respiratory Yes Cardiovascular No Neurological No Reproductive System Sexually Transmitted Disease: No HIV/AIDS: No Genitourinary No Gastrointestinal Yes (N/V) Gastroesophageal Reflux, Chronic Constipation, Chronic Diarrhea Musculoskeletal No Endocrine History of Endocrine Disorders: Yes Endocrine Disorders: Diabetes, Non-Insulin dep HEENT History of HEENT Disorders: Yes (GLASSES) Loss of Vision: Denies Hearing Impairment: Denies Psychosocial History of Psychiatric Problem: Yes Behavioral Health Disorders: Anxiety, Depression Integumentary History of Skin or Integumenta: No Blood Transfusions History of Blood Disorders: No Adverse Reaction to a Blood Tr: No (N/A) Exam Vital Signs Vital Signs 08/26/22 06:40 Temp 36.5 Pulse 80 Resp 18 B/P (MAP) 112/77 (89) Pulse Ox 97 O2 Delivery Room Air Capillary Refill : Labs Laboratory Tests Test 08/26/22 06:40 08/26/22 07:00 Range/Units Glucometer 86 70-110 MG/DL General Appearance: Alert, Oriented X3 HEENT: Atraumatic Respiratory: Clear to Auscultation Cardiovascular: Regular Rate Abdominal: Normal Bowel Sounds Extremities: No Clubbing Skin: No Rashes Neuro: Normal Gait Psych/Mental Status: Mental Status NL Assessment/Plan Admission Diagnosis Diagnosis: 27 yo with severe cervical dysplasia Completed childbearing P: SHAUNA w/ adela BSO Admission Status: Observation ROSY CASTAÑEDA DO Aug 26, 2022 07:08
[2022-08-26] MEDS ORDERED: ZOLPIDEM 5 MG (AMBIEN) TAB PO PRN (07:15)
[2022-08-26] MEDS ORDERED: BENZOCAINE LOZENGES 1 EACH LOZENGE MM PRN (07:15)
[2022-08-26] MEDS ORDERED: SIMETHICONE 80 MG (MYLICON) CHEW PO PRN (07:15)
[2022-08-26] MEDS ORDERED: HYDROcodone/APAP 7.5 MG/325 MG (LORTAB, LORCET PLUS) TABLET PO PRN (07:15)
[2022-08-26] MEDS ORDERED: ONDANSETRON 4 MG/2 ML (SDV) Z0FRAN IV PRN (07:15)
[2022-08-26] MEDS ORDERED: ANTACID SUSP 30 ML UDC (MYLANTA) PO PRN (07:15)
[2022-08-26] MEDS ORDERED: DOCUSATE SODIUM 100 MG (COLACE) CAP PO PRN (07:15)
[2022-08-26] MEDS ORDERED: KETOROLAC 30 MG/ML VIAL IVP PRN (07:15)
[2022-08-26] MEDS ORDERED: LACTATED RINGERS 1,000 ML IV SCH (07:15)
--- NOTE | 2022-08-26 07:15 | Discharge Inst-Women's Service ---
Discharge Inst-Women's Serv Depart Medication/Instructions New, Converted or Re-Newed RX: Transmitted to Pharmacy Problems Reviewed?: Yes Consults/Follow Up Additional Follow Up: Yes Orders/Referrals Dr. Hogue in 7-10 days and in 8 weeks Activity Activity: Activity as Tolerated Driving Instructions: No Driving for 1 Week NO SMOKING: NO SMOKING Nothing Inside Vagina: No Douching, No Josephine, No Tampons Diet Discharge Diet: No Restrictions Symptoms to Report to : Bleeding Excessive, Pain Increased, Fever Over 101 Degrees F, Vaginal Bleeding Increase, Questions/Concerns For Any Problems or Questions: Contact Your Physician Skin/Wound Care Infection Signs and Symptoms: Increased Redness, Foul Odor of Wound, Increased Drainage, Skin Itchy or Has a Rash, Increased Swelling, Temperature Above 101 F Operative Area Clean and Dry: Keep Incision Clean/Dry Stitches/Meena/Dermabond: Dermabond, Care of Stitches Bathing Instructions: ROSY Mitchell DO Aug 26, 2022 07:14
[2022-08-26] MEDS ORDERED: DOCU100C37 PO (07:16)
[2022-08-26] MEDS ORDERED: HYDR-34 PO (07:16)
[2022-08-26] MEDS ORDERED: IBUP-844 PO (07:16)
[2022-08-26] MEDS ORDERED: SIME80TA16 PO (07:16)
[2022-08-26] MEDS ORDERED: BUP/EPI 0.25% 1:200,000 (MARCAINE) 30 ML VIAL INJ ONE (07:40)
[2022-08-26] MEDS ORDERED: HYDROmorphone 2 MG/ML VIAL (DILAUDID) ONE (07:52)
[2022-08-26] MEDS ORDERED: GLYCOPYRROLATE 0.2 MG/ML (ROBINUL) 2 ML VIAL ONE (07:52)
[2022-08-26] MEDS ORDERED: SUGAMMADEX 500 MG/5 ML VIAL (BRIDION) IV ONE (08:30)
[2022-08-26] MEDS ORDERED: HYDROmorphone 2 MG/ML VIAL (DILAUDID) IV ONE (09:15)
--- NOTE | 2022-08-26 16:26 | OPERATIVE REPORT ---
DATE OF SERVICE: 08/26/2022 PREOPERATIVE DIAGNOSES: A 27-year-old female with: 1. Severe cervical dysplasia. 2. Patient completed childbearing. POSTOPERATIVE DIAGNOSES: A 27-year-old female with: 1. Severe cervical dysplasia. 2. Patient completed childbearing. PROCEDURE: Robotic-assisted total laparoscopic hysterectomy with bilateral salpingectomy. SURGEON: Ronald Hogue DO VASCULAR NURSE: Leticia White DNP, was necessary for manipulation and retraction throughout the procedure. ANESTHESIA: General endotracheal. ESTIMATED BLOOD LOSS: Minimal. URINE OUTPUT: 100 mL clear at the end of procedure. FLUIDS: 1500 mL lactated Ringer's solution. FINDINGS: A grossly normal-appearing external female genitalia. Grossly normal-appearing vaginal mucosa and cervix. Normal-appearing bilateral fallopian tubes with evidence of prior partial salpingectomy. Grossly normal-appearing bilateral ovaries and upper abdominal anatomy. SPECIMEN SENT: Uterus, bilateral fallopian tubes and cervix. INDICATIONS FOR PROCEDURE: This is a 27-year-old female. The patient sought care in my office for further evaluation to discuss definitive treatment for recurrent cervical dysplasia that was moderate to severe. She had had this ongoing for several years now and wishes for more definitive measures. She had undergone conization in the past that did not resolve the issue. Risk of repeat conization versus hysterectomy was reviewed with the patient. She would prefer to proceed with definitive measures. Risks of the procedure was discussed with the patient in detail including risk of bleeding, infection, damage to surrounding structures including but not limited to bowel, bladder, ureter, kidney, possible need for reoperation, postoperative complications that may occur, recovery timeframe, risk from anesthesia, and even were all discussed with the patient. After all of her questions were answered in the preoperative area, consent was obtained. The patient was taken to the operating room. DESCRIPTION OF PROCEDURE: Once in the operating room, general anesthesia was administered and found to be adequate. She was placed in the dorsal lithotomy position, prepped and draped in normal sterile fashion. A timeout was performed. Howe catheter was placed using sterile technique. A weighted speculum was inserted into the patient's vagina. Right angle retractor was used to visualize the cervix, was grasped at the 12 o'clock position using a long Allis clamp and 0 Vicryl suture was then placed in the anterior lip of the cervix and the Allis clamp was removed. The 0 Vicryl suture through the anterior lip was used with my retraction at that point. I then gently sounded the uterine cavity, was sounded to be 8 cm. I selected an 8 cm JL uterine manipulator tip and a 4 cm colpotomy ring. The manipulator tip was advanced into the uterus and the balloon was deployed and the colpotomy ring was advanced around the vaginal fornix, after which excellent bimanual manipulation is appreciated on examination. I then removed all the other instruments from the patient's vagina, performed a change of gloves, taken my attention to the abdomen where subcostally at the midclavicular line on the left, I introduced the Veress needle through the skin. Placement was confirmed using a saline drop test and opening pressure of 6 mmHg was noted. I proceeded to maximum pressure of 15 mmHg using CO2 gas at which point I created an 8-mm infraumbilical trocar with a knife and direct a blunt laparoscopic 8 mm da Noel camera trocar through the incision. Intraperitoneal placement was confirmed using da Noel laparoscope. There was no evidence of damage from the entry site. There is no evidence of damage in the left upper quadrant from the Veress entry and the Veress was removed at that point under direct visualization of laparoscope. The patient was placed in steep Trendelenburg and we had visualized all my pelvic anatomy as defined in my findings above. I placed 2 lateral trocars. These were both 8 mm trocars were approximately 8 cm lateral to the infraumbilical trocar. Once these were both in place, bringing the da Noel robot docked in appropriate fashion, placing the SynchroSeal device on left hand and monopolar eliot in the right hand and performed the following dissection bilaterally. I started at the uteroovarian ligament, which I sealed and transected using a SynchroSeal device. I then grasped the round ligament was sealed and transected with a SynchroSeal device. The absence of the fallopian tube at the proximal portion allows me to amputate the fallopian tube down the mesosalpinx, taking it away from its blood supply laterally. I then placed this in the posterior cul-de-sac for removal after the colpotomy. I was then able to grasp the entire broad ligament, which I seal and transect using the SynchroSeal device down to the level of the lower uterine segment, at which point I the anterior and posterior leaflets of the broad ligament. The anterior lip was taken to the anterior vaginal fornix. Posterior leaf was taken down the posterior vaginal fornix. This allowed me to skeletonize the uterine vessels laterally, which I sealed and transected using a SynchroSeal device. I then created a colpotomy at 12 o'clock position using monopolar eliot circumferentially around the vaginal fornix amputating the cervix away from the vagina. The entire specimen was then removed through the vagina. Both fallopian tubes were then placed in the vagina as well and removed. I then closed the vaginal cuff using 2-0 V-Loc suture in a running fashion, after which there was no active bleeding noted from any of my dissection planes. I then undocked Noel robot and proceeded with the remainder of the case laparoscopically. I copiously irrigated the pelvis using warm saline. Once again, there was noted to be nothing by dissection planes. I placed Surgiflo hemostatic agent overall my planes of dissection. The patient was taken out of steep Trendelenburg. We removed the lateral trocars under direct visualization, laparoscope. The infraumbilical trocar was left in place to release insufflation and to introduce 10 mL of 0.25% Marcaine in the peritoneal cavity for postoperative pain management. I then removed this trocar as well. The skin was reapproximated using 4-0 Monocryl interrupted subcuticular stitches. Dermabond was applied. Incision bandage were placed over the incisions as well. Howe catheter was left in place. The patient tolerated the procedure well and was taken to recovery area in stable condition. Lap, sponge counts were correct at the end of the procedure. Instrument counts were correct as well. Two grams of Ancef and 500 mg of Flagyl were given preoperatively for infection prophylaxis. Job ID: [id number] DocumentID: [id number] Dictated Date: 08/26/2022 09:05:39 Wellness Trainer Date: 08/26/2022 16:24:00 Dictated By: DO MAIA RIVERA
--- NOTE | 2022-08-27 11:54 | Anesthesia-General Post-Op ---
General Patient Condition Mental Status/LOC: Same as Preop Cardiovascular: Satisfactory Nausea/Vomiting: Absent Respiratory: Satisfactory Pain: Controlled Complications: Absent Post Op Complications Complications None Follow Up Care/Instructions Patient Instructions None needed. Anesthesia/Patient Condition Patient Condition Patient is doing well, no complaints, stable vital signs, no apparent adverse anesthesia problems. No complications reported per nursing. FAYE HATHAWAY CRNA Aug 27, 2022 11:54
[2022-08-31] MEDS ORDERED: IBUPROFEN 600 MG (MOTRIN) TAB PO SCH (12:00)
== END 2022-08-26 15:19 | disposition home or self-care (01) ==
LOC: SDC 06:11 → WS 09:35 → SDC 15:19
PROVIDERS: ATTEND Obstetrics & Gynecology
DX: D06.9 Carcinoma in situ of cervix, unspecified (principal); N83.8 Other noninflammatory disorders of ovary, fallopian tube and broad ligament; Z28.310 Unvaccinated for COVID-19; E66.9 Obesity, unspecified; Z68.32 Body mass index [BMI] 32.0-32.9, adult; F17.210 Nicotine dependence, cigarettes, uncomplicated
CPT/HCPCS: 36415; 82947; 84703; 85025; 86850; 86900; 86901; 87081